=== PATIENT | male | born 1955 | race Hispanic/Latino ===

== ENCOUNTER 2019-07-18 11:59 | Outpatient (CLI) | payer MEDICARE, OTHER ==
[2019-07-18 13:00] LABS: Blood Urea Nitrogen 11 mg/dL (9-20)
--- NOTE | 2019-07-18 15:07 | Cat Scan Report ---
CT soft tissue neck with and without IV contrast. CLINICAL HISTORY: Neck swelling FINDINGS: No previous exams are available for comparison. There is a heterogeneous lobulated mass omayra tered along the left base of tongue measuring approximately 3.8 cm AP by 3.4 cm transverse by 2.8 cm sagittally in greatest dimensions. This finding is at the level of the epiglottis and vallecula there is no significant effacement. There is a lesion extends more anteriorly along the left floor of mout h and would be most consistent with squamous cell carcinoma. There is associated necrotic adenopathy within the left at level II region with the largest measuring 2.9 cm transverse by 3.9 cm longitudinally at. An adjacent node more inferiorly measures 1.9 cm fuentes sverse. The findings would be compatible with associated metastatic process at. There is a 1.0 cm rou nded a lymph node posterior to the right submandibular gland. Otherwise, the right-sided nodes are fa irly unremarkable. There is no enlargement of the epiglottis. There is some motion artifact at the level the larynx thou gh the structures appear fairly symmetric.. The thyroid gland is appropriate in size and contour. The re is moderate atherosclerotic calcification involving proximal left ICA. All CT scans at this locati on are performed using the CT dose reduction for ALARA by means of automated exposure control. IMPRESSION: There is an infiltrative mass centered along the left at base of tongue as detailed above most consis tent with neoplastic process. Furthermore, there is associated prominent level II necrotic adenopathy on the left. A 1.0 cm lymph node is seen within the right jugulodigastric region. Signer Name: Mani Fitzgerald MD Signed: 07/18/2019 3:03 PM Workstation Name: [id number]
== END 2019-07-18 12:00 | disposition home or self-care (01) ==
LOC: EDBD → CT 11:59
PROVIDERS: ATTEND Otolaryngology
DX: R22.1 Localized swelling, mass and lump, neck (principal)
CPT/HCPCS: 36415; 70492; 82565; 84520; Q9967

== ENCOUNTER 2019-08-23 08:52 | Day surgery (SDC) | payer MEDICARE ==
--- NOTE | 2019-08-23 11:59 | Short Stay Summary ---
Short Stay Documentation Date of service: 08/23/19 - History Principal diagnosis: left tongue mass and left neck lymhadenopathy - Allergies and Medications Current Medications: Allergies No Known Allergies Allergy (Verified 08/15/19 09:18) Home Medications Medication Instructions Recorded Confirmed Last Taken Type Aspirin EC [Halfprin EC] 81 mg PO DAILY 08/15/19 08/23/19 08/22/19 History 81 mg Canagliflozin (Nf) [Invokana (Nf)] 300 mg PO DAILY 08/15/19 08/23/19 08/22/19 History 300 mg Clopidogrel [Plavix] 75 mg PO DAILY 08/15/19 08/15/19 08/14/19 History 75 mg Fenofibrate Nanocrystallized 48 mg PO DAILY 08/15/19 08/23/19 08/23/19 History [Fenofibrate] 48 mg Glimepiride [Amaryl] 4 mg PO DAILY 08/15/19 08/23/19 08/22/19 History 4 mg Niacin [Niacin ER] 500 mg PO DAILY 08/15/19 08/15/19 08/14/19 History 500 mg Tolterodine [Detrol LA] 4 mg PO DAILY 08/15/19 08/23/19 08/22/19 History 4 mg carvediloL [Coreg] 12.5 mg PO BID 08/15/19 08/23/19 08/22/19 History 12.5mg lisinopriL [Zestril TAB] 40 mg PO QHS 08/15/19 08/23/19 08/22/19 History 40 mg - Physical exam General appearance: no acute distress HEENT: Other (palpable left neck lymphadenopathy) - Brief post op/procedure progress note Date of procedure: 08/23/19 Pre-op diagnosis: left neck LAD Post-op diagnosis: same Procedure: US guided biopsy Anesthesia: local Findings: 2.2cm left neck lymph node Surgeon: KARRI CAT Estimated blood loss: none Pathology: list (18G core x 3) Condition: stable - Hospital course Hospital course: uneventful - Disposition Condition at discharge: Good Disposition: DC-01 TO HOME OR SELFCARE Short Stay Discharge Plan Follow up with: AMANDA REDMOND MD [Primary Care Provider] - 7 Days
--- NOTE | 2019-08-23 12:05 | Ultrasound Report ---
ULTRASOUND CORE BIOPSY NECK HISTORY: Left tongue mass, left neck mass DESCRIPTION OF PROCEDURE: Informed consent was obtained. Sterile technique was utilized. 1% lidocaine for skin anesthesia. Using ultrasound guidance, a 17-gauge introducer needle was advanced to the dann ding edge of a 2.3 cm left neck lymph node. 3 separate 1.3 cm 18-gauge core biopsies were obtained fo r pathology which were placed in formalin and RPMI media. The patient tolerated the procedure without difficulty. IMPRESSION: Successful ultrasound-guided biopsy of a 2.3 cm left neck lymph node. Signer Name: Chiki Mixon Jr, MD Signed: 08/23/2019 12:01 PM Workstation Name: [id number]
[2019-08-23 12:07] VITALS: BP 145/77
== END 2019-08-23 12:10 | disposition home or self-care (01) ==
LOC: CATHLABREC 08:52
PROVIDERS: ATTEND Otolaryngology
DX: R22.1 Localized swelling, mass and lump, neck (principal); C77.9 Secondary and unspecified malignant neoplasm of lymph node, unspecified; I25.10 Atherosclerotic heart disease of native coronary artery without angina pectoris; I10 Essential (primary) hypertension; G47.30 Sleep apnea, unspecified; F17.210 Nicotine dependence, cigarettes, uncomplicated; Z79.899 Other long term (current) drug therapy; Z79.82 Long term (current) use of aspirin; Z95.1 Presence of aortocoronary bypass graft; Z90.49 Acquired absence of other specified parts of digestive tract; Z98.890 Other specified postprocedural states
CPT/HCPCS: 20206; 76942; 88184; 88185; 88305; 88341; 88342

== ENCOUNTER 2021-11-07 04:25 | Inpatient (IN) | payer MEDICARE ==
[2021-11-07] MEDS ORDERED: MORPHINE 4 MG/1 ML INJ IV ONE (04:42)
[2021-11-07] MEDS ORDERED: SODIUM CHLORIDE 0.9% 1000 ML 1,000 ML IV ONE (04:42)
[2021-11-07] MEDS ORDERED: ONDANSETRON 4 MG/2 ML INJ IV ONE (04:42)
--- NOTE | 2021-11-07 04:44 | Emergency Department Report ---
ED Fall HPI - General Chief Complaint: Fall Stated Complaint: LEFT HIP PAIN Time Seen by Provider: 11/07/21 04:42 Source: patient, EMS Mode of arrival: Stretcher - History of Present Illness Initial Comments: 66-year-old male with a past medical history of head and neck cancer status post removal 2 years ago, currently in remission, history of CAD status post CABG 12 years ago, presents the ED with severe left hip pain after falling. The patient stated he had consumed a few drinks of alcohol, got inebriated, tripped and fell. Denies any other injury besides left hip. No LOC, left head is rotated internally and shortened. Was brought to ED via EMS. 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 Witnessed: yes, by family Place Fall Occurred: home Loss of Consciousness: none Prolonged Down Time?: no Symptoms Prior to Fall: none Location: pelvis (Left hip) Location - Extremities: Left: Thigh Severity: severe Severity scale (0 -10): 10 Quality: dull Context: alcohol use Associated Symptoms: denies - Related Data Home Medications Medication Instructions Recorded Confirmed Last Taken Aspirin EC [Halfprin EC] 81 mg PO DAILY 08/15/19 08/23/19 08/22/19 81 mg Canagliflozin (Nf) [Invokana (Nf)] 300 mg PO DAILY 08/15/19 08/23/19 08/22/19 300 mg Clopidogrel [Plavix] 75 mg PO DAILY 08/15/19 08/15/19 08/14/19 75 mg Fenofibrate Nanocrystallized 48 mg PO DAILY 08/15/19 08/23/19 08/23/19 [Fenofibrate] 48 mg Glimepiride [Amaryl] 4 mg PO DAILY 08/15/19 08/23/19 08/22/19 4 mg Niacin [Niacin ER] 500 mg PO DAILY 08/15/19 08/15/19 08/14/19 500 mg Tolterodine [Detrol LA] 4 mg PO DAILY 08/15/19 08/23/19 08/22/19 4 mg carvediloL [Coreg] 12.5 mg PO BID 08/15/19 08/23/19 08/22/19 12.5mg lisinopriL [Zestril TAB] 40 mg PO QHS 08/15/19 08/23/1908/22/19 40 mg Allergies Allergy/AdvReac Type Severity Reaction Status Date / Time No Known Allergies Allergy Verified 08/15/19 09:18 ED Review of Systems ROS: Stated complaint: LEFT HIP PAIN Other details as noted in HPI Constitutional: denies: chills, fever Eyes: denies: eye pain, eye discharge, vision change ENT: denies: ear pain, throat pain Respiratory: denies: cough, shortness of breath, wheezing Cardiovascular: denies: chest pain, palpitations Endocrine: no symptoms reported Gastrointestinal: denies: abdominal pain, nausea, diarrhea Genitourinary: denies: urgency, dysuria Musculoskeletal: arthralgia. denies: back pain, joint swelling Skin: denies: rash, lesions Neurological: denies: headache, weakness, paresthesias Psychiatric: denies: anxiety, depression Hematological/Lymphatic: denies: easy bleeding, easy bruising ED Past Medical Hx - Past Medical History Previous Medical History?: Yes Hx Hypertension: Yes Hx Heart Attack/AMI: No Hx Diabetes: Yes Hx HIV: No - Surgical History Past Surgical History?: No - Social History Smoking Status: Current Every Day Smoker Substance Use Type: Alcohol - Medications Home Medications: Home Medications Medication Instructions Recorded Confirmed Last Taken Type Aspirin EC [Halfprin EC] 81 mg PO DAILY 08/15/19 08/23/19 08/22/19 History 81 mg Canagliflozin (Nf) [Invokana (Nf)] 300 mg PO DAILY 08/15/19 08/23/19 08/22/19 History 300 mg Clopidogrel [Plavix] 75 mg PO DAILY 08/15/19 08/15/19 08/14/19 History 75 mg Fenofibrate Nanocrystallized 48 mg PO DAILY 08/15/19 08/23/19 08/23/19 History [Fenofibrate] 48 mg Glimepiride [Amaryl] 4 mg PO DAILY 08/15/19 08/23/19 08/22/19 History 4 mg Niacin [Niacin ER] 500 mg PO DAILY 08/15/19 08/15/19 08/14/19 History 500 mg Tolterodine [Detrol LA] 4 mg PO DAILY 08/15/19 08/23/19 08/22/19 History 4 mg carvediloL [Coreg] 12.5 mg PO BID 08/15/19 08/23/1919 History 12.5mg lisinopriL [Zestril TAB] 40 mg PO QHS 08/15/19 08/23/19 08/22/19 History 40 mg ED Physical Exam - General Limitations: No Limitations General appearance: alert, in no apparent distress - Head Head exam: Present: atraumatic, normocephalic - Eye Eye exam: Present: normal appearance - ENT ENT exam: Present: mucous membranes moist - Neck Neck exam: Present: normal inspection - Respiratory Respiratory exam: Present: normal lung sounds bilaterally. Absent: respiratory distress - Cardiovascular Cardiovascular Exam: Present: regular rate, normal rhythm. Absent: systolic murmur, diastolic murmur, rubs, gallop - GI/Abdominal GI/Abdominal exam: Present: soft, normal bowel sounds - Rectal Rectal exam: Present: deferred - Extremities Exam Extremities exam: Present: tenderness (Left hip tenderness, internally rotated, shortened) - Back Exam Back exam: Present: normal inspection - Neurological Exam Neurological exam: Present: alert, oriented X3 - Psychiatric Psychiatric exam: Present: normal affect, normal mood - Skin Skin exam: Present: warm, dry, intact, normal color. Absent: rash ED Course Vital Signs 11/07/21 11/07/21 11/07/21 04:28 05:29 05:32 Temperature 98.6 F 98.1 F Pulse Rate 78 85 Respiratory 18 14 13 Rate Blood Pressure 175/95 Blood Pressure 147/87 [Left] O2 Sat by Pulse 99 100 100 Oximetry - Reevaluation(s) Reevaluation #1: 11/07/21 05:52 Shortened left hip, consistent with fracture, will admit. ED Medical Decision Making - Lab Data Result diagrams: 11/07/21 04:46 11/07/21 04:46 - Radiology Data Radiology results: report reviewed interpreted by me: Left hip intertrochanteric fracture - Medical Decision Making Patient with left hip fracture, intertrochanteric, discuss it with orthopedic, rec hospitalist admit. - Differential Diagnosis Left hip fracture, contusion, sprain, strain. Critical care attestation.: If time is entered above; I have spent that time in minutes in the direct care of this critically ill patient, excluding procedure time. ED Disposition Clinical Impression: Closed left hip fracture Qualifiers: Encounter type: initial encounter Qualified Code(s): S72.002A - Fracture of unspecified part of neck of left femur, initial encounter for closed fracture Disposition: 09 ADMITTED INPATIENT Is pt being admited?: Yes Does the pt Need Aspirin: No Condition: Stable
[2021-11-07 05:23] LABS: Alanine Aminotransferase 10 units/L (7-56); Albumin 4.2 g/dL (3.9-5); BUN/Creatinine Ratio 10; Blood Urea Nitrogen 11 mg/dL (9-20); Calcium 8.6 mg/dL (8.4-10.2); Hemolysis Index 18
[2021-11-07 05:25] LABS: Basophils # (Auto) 0.1 K/mm3 (0.0-0.1); Basophils % (Auto) 0.7 % (0.0-1.8); Eosinophils # (Auto) 0.1 K/mm3 (0.0-0.4); Eosinophils % (Auto) 1.2 % (0.0-4.3); Hematocrit 50.1 % (35.5-45.6); Hemoglobin 16.8 gm/dl (11.8-15.2); Lymphocytes # (Auto) 0.9 K/mm3 (1.2-5.4); Lymphocytes % (Auto) 10.9 % (13.4-35.0); Mean Corpuscular HGB Conc 34 % (32-34); Mean Corpuscular Volume 101 fl (84-94); Monocytes # (Auto) 0.4 K/mm3 (0.0-0.8); Monocytes % (Auto) 5.3 % (0.0-7.3); Platelet Count 155 K/mm3 (140-440); Red Blood Count 4.94 M/mm3 (3.65-5.03); Red Cell Distribution Width 14.5 % (13.2-15.2)
[2021-11-07] MEDS ORDERED: DEXTROSE 50% IN WATER (25GM) 50 ML SYRINGE IV PRN (05:39)
[2021-11-07] MEDS ORDERED: ALBUTEROL 2.5 MG/3 ML NEBU IH PRN (05:39)
[2021-11-07] MEDS ORDERED: ACETAMINOPHEN 325 MG TAB PO PRN (05:39)
[2021-11-07] MEDS ORDERED: HYDROmorphone 1 MG/1 ML INJ IV PRN (05:39)
[2021-11-07] MEDS ORDERED: ONDANSETRON 4 MG/2 ML INJ IV PRN (05:39)
--- NOTE | 2021-11-07 05:41 | XRay Report ---
RIGHT HIP 2 VIEWS INDICATION / CLINICAL INFORMATION: left hip pain COMPARISON: None available. FINDINGS: BONES / JOINT(S): Comminuted intertrochanteric fracture. Avulsion of the lesser trochanter. SOFT TISSUES: No significant abnormality. ADDITIONAL FINDINGS: None. Signer Name: Jovanny Carye MD Signed: 11/07/2021 5:36 AM Workstation Name: [id number]
[2021-11-07] MEDS ORDERED: SODIUM CHLORIDE 0.9% 1000 ML 1,000 ML IV SCH (05:45)
--- NOTE | 2021-11-07 05:48 | History and Physical Report ---
History of Present Illness Date of examination: 11/07/21 Date of admission: 11/07/21 Chief complaint: Fall Left hip pain History of present illness: 66 years old male with history of alcohol abuse and hypertension, CAD history of CABG 12 years ago, head neck cancer status post removal 2 years ago was brought to the hospital because of left hip pain after falling. Patient was drinking and tripped and fall since then patient complained of left hip pain. In the em ergency room patient is found to have alcohol intoxicated also patient has left femoral neck fracture subsequently Case discussed with orthopedic DrNishant Will see the patient in consultation in the morning. Past History Past Medical History: hypertension, other (Alcohol abuse) Past Surgical History: No surgical history Social history: alcohol abuse, other (Every day smoker) Family history: no significant family history Medications and Allergies Allergies Allergy/AdvReac Type Severity Reaction Status Date / Time No Known Allergies Allergy Verified 08/15/19 09:18 Home Medications Medication Instructions Recorded Confirmed Last Taken Type Aspirin EC [Halfprin EC] 81 mg PO DAILY 08/15/19 08/23/19 08/22/19 History 81 mg Canagliflozin (Nf) [Invokana (Nf)] 300 mg PO DAILY 08/15/19 08/23/19 08/22/19 History 300 mg Clopidogrel [Plavix] 75 mg PO DAILY 08/15/19 08/15/19 08/14/19 History 75 mg Fenofibrate Nanocrystallized 48 mg PO DAILY 08/15/19 08/23/19 08/23/19 History [Fenofibrate] 48 mg Glimepiride [Amaryl] 4 mg PO DAILY 08/15/19 08/23/19 08/22/19 History 4 mg Niacin [Niacin ER] 500 mg PO DAILY 08/15/19 08/15/19 08/14/19 History 500 mg Tolterodine [Detrol LA] 4 mg PO DAILY 08/15/19 08/23/19 08/22/19 History 4 mg carvediloL [Coreg] 12.5 mg PO BID 08/15/19 08/23/19 08/22/19 History 12.5mg lisinopriL [Zestril TAB] 40 mg PO QHS 08/15/19 08/23/19 08/22/19 History 40 mg Review of Systems Constitutional: other (Fall, left hip pain) Exam - Constitutional Vitals: Temp Pulse Resp BP Pulse Ox 98.1 F 85 13 147/87 100 11/07/21 05:32 11/07/21 05:32 11/07/21 05:32 11/07/21 05:32 11/07/21 05:32 General appearance: Present: no acute distress, well-nourished - EENT Eyes: Present: PERRL ENT: hearing intact, clear oral mucosa - Neck Neck: Present: supple, normal ROM - Respiratory Respiratory effort: normal Respiratory: bilateral: CTA - Cardiovascular Heart Sounds: Present: S1 & S2. Absent: rub, click - Extremities Extremities: pulses symmetrical, No edema Extremity abnormal: other (Left hip pain) Peripheral Pulses: within normal limits - Abdominal General gastrointestinal: Present: soft, non-tender, non-distended, normal bowel sounds Male genitourinary: Present: normal - Integumentary Integumentary: Present: clear, warm, dry - Musculoskeletal Musculoskeletal: gait normal, strength equal bilaterally - Psychiatric Psychiatric: appropriate mood/affect, intact judgment & insight - Neurologic Neurologic: CNII-XII intact, moves all extremities Results - Labs CBC & Chem 7: 11/07/21 04:46 11/07/21 04:46 Labs: Laboratory Last Values WBC 8.1 K/mm3 (4.5-11.0) 11/07/21 04:46 RBC 4.94 M/mm3 (3.65-5.03) 11/07/21 04:46 Hgb 16.8 gm/dl (11.8-15.2) H 11/07/21 04:46 Hct 50.1 % (35.5-45.6) H 11/07/21 04:46 MCV 101 fl (84-94) H 11/07/21 04:46 MCH 34 pg (28-32) H 11/07/21 04:46 MCHC 34 % (32-34) 11/07/21 04:46 RDW 14.5 % (13.2-15.2) 11/07/21 04:46 Plt Count 155 K/mm3 (140-440) 11/07/21 04:46 Lymph % (Auto) 10.9 % (13.4-35.0) L 11/07/21 04:46 Harlan % (Auto) 5.3 % (0.0-7.3) 11/07/21 04:46 Eos % (Auto) 1.2 % (0.0-4.3) 11/07/21 04:46 Baso % (Auto) 0.7 % (0.0-1.8) 11/07/21 04:46 Lymph # (Auto) 0.9 K/mm3 (1.2-5.4) L 11/07/21 04:46 Harlan # (Auto) 0.4 K/mm3 (0.0-0.8) 11/07/21 04:46 Eos # (Auto) 0.1 K/mm3 (0.0-0.4) 11/07/21 04:46 Baso # (Auto) 0.1 K/mm3 (0.0-0.1) 11/07/21 04:46 Seg Neutrophils % 81.9 % (40.0-70.0) H 11/07/21 04:46 Seg Neutrophils # 6.6 K/mm3 (1.8-7.7) 11/07/21 04:46 Sodium 140 mmol/L (137-145) 11/07/21 04:46 Potassium 4.2 mmol/L (3.6-5.0) 11/07/21 04:46 Chloride 101.3 mmol/L (98-107) 11/07/21 04:46 Carbon Dioxide 26 mmol/L (22-30) 11/07/21 04:46 Anion Gap 17 mmol/L 11/07/21 04:46 BUN 11 mg/dL (9-20) 11/07/21 04:46 Creatinine 1.1 mg/dL (0.8-1.3) 11/07/21 04:46 Estimated GFR > 60 ml/min 11/07/21 04:46 BUN/Creatinine Ratio 10 % 11/07/21 04:46 Glucose 116 mg/dL (75-100) H 11/07/21 04:46 Calcium 8.6 mg/dL (8.4-10.2) 11/07/21 04:46 Total Bilirubin 0.20 mg/dL (0.1-1.2) 11/07/21 04:46 AST 15 units/L (5-40) 11/07/21 04:46 ALT 10 units/L (7-56) 11/07/21 04:46 Alkaline Phosphatase 68 units/L (35-129) 11/07/21 04:46 Total Protein 7.1 g/dL (6.3-8.2) 11/07/21 04:46 Albumin 4.2 g/dL (3.9-5) 11/07/21 04:46 Albumin/Globulin Ratio 1.4 % 11/07/21 04:46 Plasma/Serum Alcohol 0.17 % (0-0.07) H 11/07/21 04:46 Assessment and Plan VTE prophylaxis?: Mechanical Plan of care discussed with patient/family: Yes - Patient Problems (1) Fracture of femoral neck, left Current Visit: No Status: Acute Plan to address problem: Admit the patient to the medical floor. NPO. IV fluid normal saline at the rate of 100 cc/h. Recheck CBC BMP in the morning (2) Hypertension Current Visit: No Status: Acute Plan to address problem: Lisinopril 40 mg p.o. nightly. Coreg 12.5 mg p.o. twice daily (3) Alcohol abuse Current Visit: No Status: Acute Plan to address problem: Patient counseled regarding quitting drinking. We put the patient on CIWA protocol and banana bag (4) Tobacco abuse Current Visit: No Status: Acute Plan to address problem: Counseled regarding quit smoking. We put the patient on nicotine patch (5) CAD (coronary artery disease) Current Visit: No Status: Acute Plan to address problem: Patient is on aspirin 81 mg p.o. daily. Plavix 75 mg p.o. daily, fenofibrate 48 mg p.o. daily. Coreg 12.5 mg p.o. twice daily (6) DVT prophylaxis Current Visit: No Status: Acute Plan to address problem: SCD for DVT prophylaxis for possible surgery. Pepcid 20 mg p.o. twice daily for GI prophylaxis. Patient is a full code
[2021-11-07] MEDS ORDERED: THIAMINE 100 MG, FOLIC ACID 1 MG, MULTIPLE VITAMIN INJ, ADULT 10 ML in SODIUM CHLORIDE ... IV ONE (05:49)
[2021-11-07] MEDS ORDERED: hydrALAZINE 20 MG/1 ML INJ IV PRN (05:49)
--- NOTE | 2021-11-07 05:49 | XRay Report ---
PELVIS ONE VIEW INDICATION / CLINICAL INFORMATION: pain s/p fall COMPARISON: None available. FINDINGS: BONES / JOINT(S): Intertrochanteric fracture left hip with avulsion of the lesser trochanter. No anatoly tional fracture identified. SOFT TISSUES: No significant abnormality. ADDITIONAL FINDINGS: None. Signer Name: Jovanny Carey MD Signed: 11/07/2021 5:44 AM Workstation Name: [id number]
[2021-11-07] MEDS ORDERED: NICOTINE 7 MG/24 HR PATCH TD ONE (05:50)
[2021-11-07 06:07] LABS: INR 0.87 (0.87-1.13)
[2021-11-07 06:08] LABS: Partial Thromboplastin Time 28.4 Sec. (24.2-36.6)
[2021-11-07] MEDS: INSULIN LISPRO 100 UNIT/ML SUB-Q SCH ×3 (06:27→18:00)
[2021-11-07 06:50] LABS: Bilirubin,Urine NEG (Negative); Blood,Urine SM (Negative); Color,Urine Yellow (Yellow); Protein,Urine <15 mg/dL mg/dL (Negative); Urobilinogen,Urine < 2.0 mg/dL (<2.0)
[2021-11-07 06:57] LABS: Amphetamine Screen,Urine Negative; Benzodiazepines Screen,Urine Negative; Cannabinoid Screen,Urine Negative; Cocaine Screen,Urine Negative; Methadone Screen,Urine Negative; Opiate Screen,Urine Negative
[2021-11-07 07:13] LABS: RBC,Urine < 1.0 /HPF (0.0-6.0); WBC,Urine < 1.0 /HPF (0.0-6.0)
--- NOTE | 2021-11-07 08:10 | Event Note ---
Date: 11/07/21 Patient was evaluated this morning and found to be hemodynamically stable. The patient experienced a closed left femur fracture, and he is currently pending evaluation by orthopedic surgery. Analgesic has been adjusted, and patient has been placed on a regular diet until surgical date is determined.
[2021-11-07] MEDS ORDERED: HYDROmorphone 2 MG/1 ML INJ IV ONE (08:26)
[2021-11-07] MEDS: IBUPROFEN 800 MG TAB PO SCH ×3 (08:43→21:50)
[2021-11-07] MEDS ORDERED: IBUPROFEN 600 MG TAB PO SCH (09:00)
[2021-11-07] MEDS ORDERED: TOLTERODINE 2 MG PO SCH (10:00)
[2021-11-07] MEDS: IPRATROPIUM/ALBUTEROL SULFATE 3 ML AMPUL.NEB IH SCH ×2 (10:36→14:23)
[2021-11-07] MEDS: FAMOTIDINE 20 MG TAB PO SCH ×2 (10:45→21:47)
[2021-11-07] MEDS: carvediloL 12.5 MG TAB PO SCH ×2 (10:45→21:48)
[2021-11-07] MEDS: MORPHINE 2 MG/1 ML INJ IV PRN ×3 (11:27→23:46)
[2021-11-07] MEDS: OXYBUTYNIN 5 MG TAB PO SCH ×3 (11:38→21:49)
[2021-11-07] MEDS: NIACIN ER 500 MG TAB PO SCH (11:38)
[2021-11-07] MEDS: FENOFIBRATE 48 MG TAB PO SCH (11:39)
--- NOTE | 2021-11-07 11:40 | Consultation ---
History of Present Illness - [facility] Consult date: 11/07/21 History of present illness: ORTHOPAEDIC CONSULT Assessment: 1. Intertrochanteric fracture, left hip 2. History of atrial fibrillation/recent onset Recommendation: 1. IM nail stabilization, left hip (TriGen InterTAN) 2. Physical therapy for partial weightbearingand, strengthening LEFT lower extremity as per hip fracture recovery guidelines;; 3. Appropriate pain management; 4. Possible discharge home on Nov 09 or ; will require outpatient/home health school therapy on weekly basis for the next 6 weeks following surgery; and HOME HEALTH P.T. ( first 3 weeks); Discussion: This is a 66-year-old male who had the misfortune of slipping and falling yesterday at home sustaining a left hip injury. He was unable to bear weight or get up off the floor and therefore called for help and was seen at the emergency room last evening where x-rays revealed an intertrochanteric fracture of the left hip. He was admitted by the hospitalist and orthopedics was consulted. He has a moderate cardiac history with recent onset atrial fibrillation? This will need to be cleared for anesthesia. Would like to proceed with surgical stabilization tomorrow but if unable must try to shoot for doing the surgery within 48 hours. he is examined at the bedside and is in no acute distress. The left lower extremity is shortened and externally rotated. He has typical pain and is unable to do a straight leg raise without assistance because of pain. There are no apparent other injuries. He has no skin lesions ; the tenderness is in the groin and over the greater trochanter. X-rays: Moderately displaced intertrochanteric fracture with lesser trochanter involvement but otherwise no comminution. There is shortening/collapse. Past History Past Medical History: hypertension, other (Alcohol abuse) Past Surgical History: No surgical history Social history: alcohol abuse, other (Every day smoker) Family history: no significant family history Medications and Allergies Allergies Allergy/AdvReac Type Severity Reaction Status Date / Time No Known Allergies Allergy Verified 08/15/19 09:18 Home Medications Medication Instructions Recorded Confirmed Last Taken Type Aspirin EC [Halfprin EC] 81 mg PO DAILY 08/15/19 08/23/19 08/22/19 History 81 mg Canagliflozin (Nf) [Invokana (Nf)] 300 mg PO DAILY 08/15/19 08/23/19 08/22/19 History 300 mg Clopidogrel [Plavix] 75 mg PO DAILY 08/15/19 08/15/19 08/14/19 History 75 mg Fenofibrate Nanocrystallized 48 mg PO DAILY 08/15/19 08/23/19 08/23/19 History [Fenofibrate] 48 mg Glimepiride [Amaryl] 4 mg PO DAILY 08/15/19 08/23/19 08/22/19 History 4 mg Niacin [Niacin ER] 500 mg PO DAILY 08/15/19 08/15/19 08/14/19 History 500 mg Tolterodine [Detrol LA] 4 mg PO DAILY 08/15/19 08/23/19 08/22/19 History 4 mg carvediloL [Coreg] 12.5 mg PO BID 08/15/19 08/23/19 08/22/19 History 12.5mg lisinopriL [Zestril TAB] 40 mg PO QHS 08/15/19 08/23/19 08/22/19 History 40 mg Active Meds: Active Medications Acetaminophen (Acetaminophen 325 Mg Tab) 650 mg PO Q4H PRN PRN Reason: Fever >101 Albuterol (Albuterol 2.5 Mg/3 Ml Nebu) 2.5 mg IH Q3HRT PRN PRN Reason: Shortness Of Breath Albuterol/Ipratropium (Ipratropium/Albuterol Sulfate 3 Ml Ampul.Neb) 1 ampul IH Q6HRT [facility] Last Admin: 11/07/21 10:36 Dose: Not Given Carvedilol (Carvedilol 12.5 Mg Tab) 12.5 mg PO BID [facility] Dextrose (Dextrose 10% *Hypoglycemia) 0 ml IV PRN PRN PRN Reason: Hypoglycemia Famotidine (Famotidine 20 Mg Tab) 20 mg PO BID [facility] Fenofibrate (Fenofibrate 48 Mg Tab) 48 mg PO DAILY [facility] Hydralazine HCl (Hydralazine 20 Mg/1 Ml Inj) 10 mg IV Q6H PRN PRN Reason: Blood Pressure Hydromorphone HCl (Hydromorphone 1 Mg/1 Ml Inj) 1 mg IV Q3H PRN PRN Reason: Pain , Severe (7-10) Sodium Chloride (Nacl 0.9% 1000 Ml) 1,000 mls @ 100 mls/hr IV DIRECT [facility] Ibuprofen (Ibuprofen 800 Mg Tab) 800 mg PO Q6H [facility] Last Admin: 11/07/21 08:43 Dose: 800 mg Insulin Human Lispro (Insulin Lispro 100 Unit/Ml) 0 unit SUB-Q Q6HR [facility]; Protocol Last Admin: 11/07/21 06:27 Dose: Not Given Lisinopril (Lisinopril 40 Mg Tab) 40 mg PO QHS [facility] Lorazepam (Lorazepam 2 Mg/Ml Vial) 2 mg IV Q1H PRN PRN Reason: CIWA-Ar 8-15 Morphine Sulfate (Morphine 2 Mg/1 Ml Inj) 2 mg IV Q4H PRN PRN Reason: Pain, Moderate (4-6) Niacin (Niacin Er 500 Mg Tab) 500 mg PO DAILY [facility] Ondansetron HCl (Ondansetron 4 Mg/2 Ml Inj) 4 mg IV Q8H PRN PRN Reason: Nausea And Vomiting Oxybutynin Chloride (Oxybutynin 5 Mg Tab) 5 mg PO TID [facility] Sodium Chloride (Sodium Chloride 0.9% 10 Ml Flush Syringe) 10 ml IV BID JANICE Sodium Chloride (Sodium Chloride 0.9% 10 Ml Flush Syringe) 10 ml IV PRN PRN PRN Reason: LINE FLUSH
[2021-11-07] MEDS: HYDROmorphone 1 MG/1 ML INJ IV PRN (18:48)
[2021-11-07] MEDS: LISINOPRIL 40 MG TAB PO SCH (21:50)
[2021-11-08] MEDS: IPRATROPIUM/ALBUTEROL SULFATE 3 ML AMPUL.NEB IH SCH (01:51)
[2021-11-08] MEDS: IBUPROFEN 800 MG TAB PO SCH ×4 (04:10→20:44)
[2021-11-08] MEDS: INSULIN LISPRO 100 UNIT/ML SUB-Q SCH ×4 (05:34→17:36)
[2021-11-08] MEDS: MORPHINE 2 MG/1 ML INJ IV PRN (06:02)
[2021-11-08] MEDS: DEXTROSE 10% *Hypoglycemia IV PRN (06:04)
[2021-11-08 06:09] LABS: Basophils % (Auto) 0.5 % (0.0-1.8); Eosinophils # (Auto) 0.1 K/mm3 (0.0-0.4); Eosinophils % (Auto) 1.3 % (0.0-4.3); Hematocrit 45.7 % (35.5-45.6); Hemoglobin 15.1 gm/dl (11.8-15.2); Lymphocytes # (Auto) 0.9 K/mm3 (1.2-5.4); Lymphocytes % (Auto) 18.4 % (13.4-35.0); Mean Corpuscular HGB Conc 33 % (32-34); Mean Corpuscular Volume 102 fl (84-94); Monocytes # (Auto) 0.5 K/mm3 (0.0-0.8); Monocytes % (Auto) 11.4 % (0.0-7.3); Platelet Count 124 K/mm3 (140-440); Red Blood Count 4.47 M/mm3 (3.65-5.03); Red Cell Distribution Width 14.6 % (13.2-15.2)
[2021-11-08 06:25] LABS: BUN/Creatinine Ratio 14; Blood Urea Nitrogen 14 mg/dL (9-20); Calcium 8.3 mg/dL (8.4-10.2); Hemolysis Index 7; INR 0.96 (0.87-1.13)
[2021-11-08] MEDS: OXYBUTYNIN 5 MG TAB PO SCH ×3 (08:14→20:39)
--- NOTE | 2021-11-08 09:45 | Progress Note ---
Assessment and Plan Assessment and plan: #Closed left intertrochanteric fracture Orthopedic surgery consulted; appreciate recs. Surgical repair should occur within 24-48 hours Imaging revealing fracture on admission Continue analgesics as needed Physical therapy consulted for evaluation after surgical repair; pending recs Continue to monitor #Alcohol dependence - Counseled patient on the importance of ETOH cessation. Assess patient's current ETOH consumption. Assisted with trying to arrange resources for patient to adequately work towards ETOH cessation. Patient expresses understanding. -Time: +10 mins #Advanced care planning -Disease education conducted, care plan discussed, diagnoses discussed, prognosis discussed, and patient acknowledges understanding with care plan -Time: +30 min #Discharge planning - Patient is pending surgical repair of intertrochanteric fracture and PT evaluation - Case management has been made aware. - Discharge is tentatively 48-72 hours Disposition Plan: Continue medical management Total Time Spent with Patient (Minutes): 30 minutes History Interval history: No acute events overnight. Hospitalist Physical - Constitutional Vitals: Temp Pulse Resp BP Pulse Ox 97.4 F L 56 L 18 133/74 97 11/08/21 08:23 11/08/21 08:23 11/08/21 08:23 11/08/21 08:23 11/08/21 08:23 General appearance: Present: mild distress, well-nourished - EENT Eyes: Present: PERRL, EOM intact ENT: hearing intact, clear oral mucosa, dentition normal - Neck Neck: Present: supple, normal ROM - Respiratory Respiratory effort: normal Respiratory: bilateral: CTA - Cardiovascular Rhythm: regular Heart Sounds: Present: S1 & S2 - Extremities Extremities: no ischemia, pulses intact, pulses symmetrical, normal temperature, normal color, abnormal (Shortened and internally rotated left lower extremity with significant tenderness with movement) Peripheral Pulses: within normal limits - Abdominal General gastrointestinal: soft, non-tender, non-distended, normal bowel sounds - Integumentary Integumentary: Present: clear, warm, dry - Psychiatric Psychiatric: appropriate mood/affect, intact judgment & insight, memory intact, cooperative - Neurologic Neurologic: CNII-XII intact - Allied Health Allied health notes reviewed: nursing Results - Labs CBC & Chem 7: 11/08/21 04:58 11/08/21 04:58 Labs: Laboratory Last Values WBC 4.8 K/mm3 (4.5-11.0) 11/08/21 04:58 RBC 4.47 M/mm3 (3.65-5.03) 11/08/21 04:58 Hgb 15.1 gm/dl (11.8-15.2) 11/08/21 04:58 Hct 45.7 % (35.5-45.6) H 11/08/21 04:58 MCV 102 fl (84-94) H 11/08/21 04:58 MCH 34 pg (28-32) H 11/08/21 04:58 MCHC 33 % (32-34) 11/08/21 04:58 RDW 14.6 % (13.2-15.2) 11/08/21 04:58 Plt Count 124 K/mm3 (140-440) L 11/08/21 04:58 Lymph % (Auto) 18.4 % (13.4-35.0) 11/08/21 04:58 [place] % (Auto) 11.4 % (0.0-7.3) H 11/08/21 04:58 Eos % (Auto) 1.3 % (0.0-4.3) 11/08/21 04:58 Baso % (Auto) 0.5 % (0.0-1.8) 11/08/21 04:58 Lymph # (Auto) 0.9 K/mm3 (1.2-5.4) L 11/08/21 04:58 [place] # (Auto) 0.5 K/mm3 (0.0-0.8) 11/08/21 04:58 Eos # (Auto) 0.1 K/mm3 (0.0-0.4) 11/08/21 04:58 Baso # (Auto) 0.0 K/mm3 (0.0-0.1) 11/08/21 04:58 Seg Neutrophils % 68.4 % (40.0-70.0) 11/08/21 04:58 Seg Neutrophils # 3.3 K/mm3 (1.8-7.7) 11/08/21 04:58 PT 13.8 Sec. (12.2-14.9) 11/08/21 04:58 INR 0.96 (0.87-1.13) 11/08/21 04:58 APTT 28.4 Sec. (24.2-36.6) 11/07/21 04:46 Sodium 138 mmol/L (137-145) 11/08/21 04:58 Potassium 3.7 mmol/L (3.6-5.0) 11/08/21 04:58 Chloride 102.1 mmol/L (98-107) 11/08/21 04:58 Carbon Dioxide 26 mmol/L (22-30) 11/08/21 04:58 Anion Gap 14 mmol/L 11/08/21 04:58 BUN 14 mg/dL (9-20) 11/08/21 04:58 Creatinine 1.0 mg/dL (0.8-1.3) 11/08/21 04:58 Estimated GFR > 60 ml/min 11/08/21 04:58 BUN/Creatinine Ratio 14 % 11/08/21 04:58 Glucose 82 mg/dL (75-100) 11/08/21 04:58 POC Glucose 75 mg/dL (70-105) 11/08/21 07:40 Calcium 8.3 mg/dL (8.4-10.2) L 11/08/21 04:58 Total Bilirubin 0.20 mg/dL (0.1-1.2) 11/07/21 04:46 AST 15 units/L (5-40) 11/07/21 04:46 ALT 10 units/L (7-56) 11/07/21 04:46 Alkaline Phosphatase 68 units/L (35-129) 11/07/21 04:46 Total Protein 7.1 g/dL (6.3-8.2) 11/07/21 04:46 Albumin 4.2 g/dL (3.9-5) 11/07/21 04:46 Albumin/Globulin Ratio 1.4 % 11/07/21 04:46 Urine Color Yellow (Yellow) 11/07/21 06:24 Urine Turbidity Clear (Clear) 11/07/21 06:24 Urine pH 6.0 (5.0-7.0) 11/07/21 06:24 Ur Specific [place] 1.006 (1.003-1.030) 11/07/21 06:24 Urine Protein <15 mg/dl mg/dL (Negative) 11/07/21 06:24 Urine Glucose (UA) Neg mg/dL (Negative) 11/07/21 06:24 Urine Ketones Neg mg/dL (Negative) 11/07/21 06:24 Urine Blood Sm (Negative) 11/07/21 06:24 Urine Nitrite Neg (Negative) 11/07/21 06:24 Urine Bilirubin Neg (Negative) 11/07/21 06:24 Urine Urobilinogen < 2.0 mg/dL (<2.0) 11/07/21 06:24 Ur Leukocyte Esterase Neg (Negative) 11/07/21 06:24 Urine WBC (Auto) < 1.0 /HPF (0.0-6.0) 11/07/21 06:24 Urine RBC (Auto) < 1.0 /HPF (0.0-6.0) 11/07/21 06:24 Urine Opiates Screen Negative 11/07/21 06:24 Urine Methadone Screen Negative 11/07/21 06:24 Ur Barbiturates Screen Negative 11/07/21 06:24 Ur Phencyclidine Scrn Negative 11/07/21 06:24 Ur Amphetamines Screen Negative 11/07/21 06:24 U Benzodiazepines Scrn Negative 11/07/21 06:24 Urine Cocaine Screen Negative 11/07/21 06:24 U Marijuana (THC) Screen Negative 11/07/21 06:24 Drugs of Abuse Note Disclamer 11/07/21 06:24 Plasma/Serum Alcohol 0.17 % (0-0.07) H 11/07/21 04:46 Blood Type O POSITIVE 11/07/21 05:35 Antibody Screen Negative 11/07/21 05:35 North/IV: Voiding Method Urinal Active Medications - Current Medications Current Medications: Generic Name Dose Route Start Last Admin Trade Name Freq PRN Reason Stop Dose Admin Acetaminophen 650 mg 11/07/21 05:39 Acetaminophen 325 Mg Tab PO Q4H PRN Fever >101 Albuterol 2.5 mg 11/07/21 05:39 Albuterol 2.5 Mg/3 Ml Nebu IH Q3HRT PRN Shortness Of Breath Carvedilol 12.5 mg 11/07/21 10:00 11/07/21 21:48 Carvedilol 12.5 Mg Tab PO 12.5 mg BID JANICE Administration Dextrose 0 ml 11/07/21 05:49 11/08/21 06:04 Dextrose 10% *Hypoglycemia IV 50 ml PRN PRN Administration Hypoglycemia Famotidine 20 mg 11/07/21 10:00 11/07/21 21:47 Famotidine 20 Mg Tab PO 20 mg BID JANICE Administration Fenofibrate 48 mg 11/07/21 10:00 11/07/21 11:39 Fenofibrate 48 Mg Tab PO 48 mg DAILY JANICE Administration Hydralazine HCl 10 mg 11/07/21 05:49 Hydralazine 20 Mg/1 Ml Inj IV Q6H PRN Blood Pressure Hydromorphone HCl 1 mg 11/07/21 08:08 11/07/21 18:48 Hydromorphone 1 Mg/1 Ml Inj IV 1 mg Q3H PRN Administration Pain , Severe (7-10) Sodium Chloride 1,000 mls @ 100 mls/hr 11/07/21 05:45 Nacl 0.9% 1000 Ml IV DIRECT JANICE Ibuprofen 800 mg 11/07/21 09:00 11/08/21 08:15 Ibuprofen 800 Mg Tab PO 800 mg Q6H JANICE Administration Insulin Human Lispro 0 unit 11/07/21 06:00 11/08/21 07:48 Insulin Lispro 100 Unit/Ml SUB-Q Not Given Q6HR [facility] Protocol Lisinopril 40 mg 11/07/21 22:00 11/07/21 21:50 Lisinopril 40 Mg Tab PO 40 mg QHS JANICE Administration Lorazepam 2 mg 11/07/21 05:49 Lorazepam 2 Mg/Ml Vial IV Q1H PRN CIWA-Ar 8-15 Morphine Sulfate 2 mg 11/07/21 05:39 11/08/21 06:02 Morphine 2 Mg/1 Ml Inj IV 2 mg Q4H PRN Administration Pain, Moderate (4-6) Niacin 500 mg 11/07/21 10:00 11/07/21 11:38 Niacin Er 500 Mg Tab PO 500 mg DAILY JANICE Administration Ondansetron HCl 4 mg 11/07/21 05:39 Ondansetron 4 Mg/2 Ml Inj IV Q8H PRN Nausea And Vomiting Oxybutynin Chloride 5 mg 11/07/21 08:00 11/08/21 08:14 Oxybutynin 5 Mg Tab PO 5 mg TID JANICE Administration Sodium Chloride 10 ml 11/07/21 10:00 11/07/21 23:47 Sodium Chloride 0.9% 10 Ml Flush Syringe IV 10 ml BID JANICE Administration Sodium Chloride 10 ml 11/07/21 05:39 Sodium Chloride 0.9% 10 Ml Flush Syringe IV PRN PRN LINE FLUSH
[2021-11-08] MEDS: carvediloL 12.5 MG TAB PO SCH ×2 (10:29→21:43)
[2021-11-08] MEDS: FAMOTIDINE 20 MG TAB PO SCH ×2 (10:30→21:42)
[2021-11-08] MEDS: NIACIN ER 500 MG TAB PO SCH (10:30)
[2021-11-08] MEDS: FENOFIBRATE 48 MG TAB PO SCH (10:31)
--- NOTE | 2021-11-08 10:52 | Electrocardiograph Report ---
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
[2021-11-08] MEDS: HYDROmorphone 1 MG/1 ML INJ IV PRN ×2 (14:09→20:48)
[2021-11-08] MEDS: LISINOPRIL 40 MG TAB PO SCH (21:42)
[2021-11-09] MEDS: HYDROmorphone 1 MG/1 ML INJ IV PRN ×4 (01:26→17:55)
[2021-11-09] MEDS: IBUPROFEN 800 MG TAB PO SCH ×3 (03:00→20:48)
[2021-11-09] MEDS: DEXTROSE 10% *Hypoglycemia IV PRN (05:50)
[2021-11-09] MEDS: INSULIN LISPRO 100 UNIT/ML SUB-Q SCH ×4 (05:50→18:23)
[2021-11-09 07:09] LABS: Basophils % (Auto) 0.5 % (0.0-1.8); Eosinophils # (Auto) 0.1 K/mm3 (0.0-0.4); Eosinophils % (Auto) 2.1 % (0.0-4.3); Hematocrit 43.7 % (35.5-45.6); Hemoglobin 14.3 gm/dl (11.8-15.2); Lymphocytes # (Auto) 0.5 K/mm3 (1.2-5.4); Lymphocytes % (Auto) 10.2 % (13.4-35.0); Mean Corpuscular HGB Conc 33 % (32-34); Mean Corpuscular Volume 102 fl (84-94); Monocytes # (Auto) 0.5 K/mm3 (0.0-0.8); Platelet Count 111 K/mm3 (140-440); Red Blood Count 4.28 M/mm3 (3.65-5.03); Red Cell Distribution Width 14.5 % (13.2-15.2)
[2021-11-09 07:29] LABS: BUN/Creatinine Ratio 13; Blood Urea Nitrogen 13 mg/dL (9-20); Hemolysis Index 24
--- NOTE | 2021-11-09 11:06 | Progress Note ---
Assessment and Plan Assessment and plan: #Closed left intertrochanteric fracture Orthopedic surgery consulted; appreciate recs. Surgical repair will occur in the OR today (11/09/2021). Imaging revealing fracture on admission Continue analgesics as needed Physical therapy consulted for evaluation after surgical repair; pending recs Starting Eliquis 2.5 mg every 12 hours x35 days (after surgical repair) in order to avoid DVT formation. Continue to monitor #Alcohol dependence - Counseled patient on the importance of ETOH cessation. Assess patient's current ETOH consumption. Assisted with trying to arrange resources for patient to adequately work towards ETOH cessation. Patient expresses understanding. -Time: +10 mins #Advanced care planning -Disease education conducted, care plan discussed, diagnoses discussed, prognosis discussed, and patient acknowledges understanding with care plan -Time: +30 min #Discharge planning - Patient is pending surgical repair of intertrochanteric fracture and PT evalua tion - Case management has been made aware. - Discharge is tentatively 48-72 hours Disposition Plan: Continue medical management Total Time Spent with Patient (Minutes): 30 minutes History Interval history: No acute events overnight. Hospitalist Physical - Constitutional Vitals: Temp Pulse Resp BP Pulse Ox 98.0 F 62 17 132/72 100 11/09/21 03:44 11/09/21 03:44 11/09/21 05:26 11/09/21 03:44 11/09/21 03:44 General appearance: Present: mild distress, well-nourished - EENT Eyes: Present: PERRL, EOM intact ENT: hearing intact, clear oral mucosa, dentition normal - Neck Neck: Present: supple, normal ROM - Respiratory Respiratory effort: normal Respiratory: bilateral: CTA - Cardiovascular Rhythm: regular Heart Sounds: Present: S1 & S2 - Extremities Extremities: no ischemia, pulses intact, pulses symmetrical, normal temperature, normal color, abnormal (Shortened and internally rotated left lower extremity at hip) Extremity abnormal: tenderness (Significant tenderness of the left hip prec ipitated by any movement) Peripheral Pulses: within normal limits - Abdominal General gastrointestinal: soft, non-tender, non-distended, normal bowel sounds - Integumentary Integumentary: Present: clear, warm, dry - Psychiatric Psychiatric: appropriate mood/affect, intact judgment & insight, memory intact, cooperative - Neurologic Neurologic: CNII-XII intact, moves all extremities - Allied Health Allied health notes reviewed: nursing Results - Labs CBC & Chem 7: 11/09/21 06:39 11/09/21 06:39 Labs: Laboratory Last Values WBC 4.9 K/mm3 (4.5-11.0) 11/09/21 06:39 RBC 4.28 M/mm3 (3.65-5.03) 11/09/21 06:39 Hgb 14.3 gm/dl (11.8-15.2) 11/09/21 06:39 Hct 43.7 % (35.5-45.6) 11/09/21 06:39 MCV 102 fl (84-94) H 11/09/21 06:39 MCH 34 pg (28-32) H 11/09/21 06:39 MCHC 33 % (32-34) 11/09/21 06:39 RDW 14.5 % (13.2-15.2) 11/09/21 06:39 Plt Count 111 K/mm3 (140-440) L 11/09/21 06:39 Lymph % (Auto) 10.2 % (13.4-35.0) L 11/09/21 06:39 [place] % (Auto) 11.0 % (0.0-7.3) H 11/09/21 06:39 Eos % (Auto) 2.1 % (0.0-4.3) 11/09/21 06:39 Baso % (Auto) 0.5 % (0.0-1.8) 11/09/21 06:39 Lymph # (Auto) 0.5 K/mm3 (1.2-5.4) L 11/09/21 06:39 [place] # (Auto) 0.5 K/mm3 (0.0-0.8) 11/09/21 06:39 Eos # (Auto) 0.1 K/mm3 (0.0-0.4) 11/09/21 06:39 Baso # (Auto) 0.0 K/mm3 (0.0-0.1) 11/09/21 06:39 Seg Neutrophils % 76.2 % (40.0-70.0) H 11/09/21 06:39 Seg Neutrophils # 3.7 K/mm3 (1.8-7.7) 11/09/21 06:39 PT 13.8 Sec. (12.2-14.9) 11/08/21 04:58 INR 0.96 (0.87-1.13) 11/08/21 04:58 APTT 28.4 Sec. (24.2-36.6) 11/07/21 04:46 Sodium 139 mmol/L (137-145) 11/09/21 06:39 Potassium 4.2 mmol/L (3.6-5.0) 11/09/21 06:39 Chloride 103.4 mmol/L (98-107) 11/09/21 06:39 Carbon Dioxide 27 mmol/L (22-30) 11/09/21 06:39 Anion Gap 13 mmol/L 11/09/21 06:39 BUN 13 mg/dL (9-20) 11/09/21 06:39 Creatinine 1.0 mg/dL (0.8-1.3) 11/09/21 06:39 Estimated GFR > 60 ml/min 11/09/21 06:39 BUN/Creatinine Ratio 13 % 11/09/21 06:39 Glucose 98 mg/dL (75-100) 11/09/21 06:39 POC Glucose 86 mg/dL (70-105) 11/09/21 06:44 Calcium 8.0 mg/dL (8.4-10.2) L 11/09/21 06:39 Total Bilirubin 0.20 mg/dL (0.1-1.2) 11/07/21 04:46 AST 15 units/L (5-40) 11/07/21 04:46 ALT 10 units/L (7-56) 11/07/21 04:46 Alkaline Phosphatase 68 units/L (35-129) 11/07/21 04:46 Total Protein 7.1 g/dL (6.3-8.2) 11/07/21 04:46 Albumin 4.2 g/dL (3.9-5) 11/07/21 04:46 Albumin/Globulin Ratio 1.4 % 11/07/21 04:46 Urine Color Yellow (Yellow) 11/07/21 06:24 Urine Turbidity Clear (Clear) 11/07/21 06:24 Urine pH 6.0 (5.0-7.0) 11/07/21 06:24 Ur Specific [place] 1.006 (1.003-1.030) 11/07/21 06:24 Urine Protein <15 mg/dl mg/dL (Negative) 11/07/21 06:24 Urine Glucose (UA) Neg mg/dL (Negative) 11/07/21 06:24 Urine Ketones Neg mg/dL (Negative) 11/07/21 06:24 Urine Blood Sm (Negative) 11/07/21 06:24 Urine Nitrite Neg (Negative) 11/07/21 06:24 Urine Bilirubin Neg (Negative) 11/07/21 06:24 Urine Urobilinogen < 2.0 mg/dL (<2.0) 11/07/21 06:24 Ur Leukocyte Esterase Neg (Negative) 11/07/21 06:24 Urine WBC (Auto) < 1.0 /HPF (0.0-6.0) 11/07/21 06:24 Urine RBC (Auto) < 1.0 /HPF (0.0-6.0) 11/07/21 06:24 Urine Opiates Screen Negative 11/07/21 06:24 Urine Methadone Screen Negative 11/07/21 06:24 Ur Barbiturates Screen Negative 11/07/21 06:24 Ur Phencyclidine Scrn Negative 11/07/21 06:24 Ur Amphetamines Screen Negative 11/07/21 06:24 U Benzodiazepines Scrn Negative 11/07/21 06:24 Urine Cocaine Screen Negative 11/07/21 06:24 U Marijuana (THC) Screen Negative 11/07/21 06:24 Drugs of Abuse Note Disclamer 11/07/21 06:24 Plasma/Serum Alcohol 0.17 % (0-0.07) H 11/07/21 04:46 Blood Type O POSITIVE 11/07/21 05:35 Antibody Screen Negative 11/07/21 05:35 North/IV: Voiding Method Urinal Active Medications - Current Medications Current Medications: Generic Name Dose Route Start Last Admin Trade Name Freq PRN Reason Stop Dose Admin Acetaminophen 650 mg 11/07/21 05:39 Acetaminophen 325 Mg Tab PO Q4H PRN Fever >101 Albuterol 2.5 mg 11/07/21 05:39 Albuterol 2.5 Mg/3 Ml Nebu IH Q3HRT PRN Shortness Of Breath Calcium Carbonate/Glycine 1,250 mg 11/10/21 10:00 Calcium Carbonate 1250 Mg Tab PO BID JANICE Carvedilol 12.5 mg 11/07/21 10:00 11/08/21 21:43 Carvedilol 12.5 Mg Tab PO Not Given BID [facility] Dextrose 0 ml 11/07/21 05:49 11/09/21 05:50 Dextrose 10% *Hypoglycemia IV 50 ml PRN PRN Administration Hypoglycemia Famotidine 20 mg 11/07/21 10:00 11/08/21 21:42 Famotidine 20 Mg Tab PO 20 mg BID [facility] Administration Fenofibrate 48 mg 11/07/21 10:00 11/08/21 10:31 Fenofibrate 48 Mg Tab PO 48 mg DAILY [facility] Administration Hydralazine HCl 10 mg 11/07/21 05:49 Hydralazine 20 Mg/1 Ml Inj IV Q6H PRN Blood Pressure Hydromorphone HCl 1 mg 11/07/21 08:08 11/09/21 09:51 Hydromorphone 1 Mg/1 Ml Inj IV 1 mg Q3H PRN Administration Pain , Severe (7-10) Ibuprofen 800 mg 11/07/21 09:00 11/09/21 03:00 Ibuprofen 800 Mg Tab PO Not Given Q6H [facility] Insulin Human Lispro 0 unit 11/07/21 06:00 11/09/21 05:50 Insulin Lispro 100 Unit/Ml SUB-Q Not Given Q6HR [facility] Protocol Lisinopril 40 mg 11/07/21 22:00 11/08/21 21:42 Lisinopril 40 Mg Tab PO 40 mg QHS [facility] Administration Lorazepam 2 mg 11/07/21 05:49 Lorazepam 2 Mg/Ml Vial IV Q1H PRN CIWA-Ar 8-15 Morphine Sulfate 2 mg 11/07/21 05:39 11/08/21 06:02 Morphine 2 Mg/1 Ml Inj IV 2 mg Q4H PRN Administration Pain, Moderate (4-6) Niacin 500 mg 11/07/21 10:00 11/08/21 10:30 Niacin Er 500 Mg Tab PO 500 mg DAILY [facility] Administration Ondansetron HCl 4 mg 11/07/21 05:39 Ondansetron 4 Mg/2 Ml Inj IV Q8H PRN Nausea And Vomiting Oxybutynin Chloride 5 mg 11/07/21 08:00 11/08/21 20:39 Oxybutynin 5 Mg Tab PO 5 mg TID [facility] Administration Sodium Chloride 10 ml 11/07/21 10:00 11/08/21 21:47 Sodium Chloride 0.9% 10 Ml Flush Syringe IV 10 ml BID JANICE Administration Sodium Chloride 10 ml 11/07/21 05:39 Sodium Chloride 0.9% 10 Ml Flush Syringe IV PRN PRN LINE FLUSH
[2021-11-09] MEDS ORDERED: LACTATED RINGERS 1,000 ML ONE (11:35)
[2021-11-09] MEDS: LACTATED RINGERS 1,000 ML IV SCH ×2 (11:40→20:42)
[2021-11-09] MEDS ORDERED: HYDROmorphone 1 MG/1 ML INJ IV PRN ×2 (11:59)
[2021-11-09] MEDS ORDERED: ONDANSETRON 4 MG/2 ML INJ IV PRN (11:59)
[2021-11-09] MEDS ORDERED: MIDAZOLAM 2 MG/2 ML INJ IV NR (12:00)
--- NOTE | 2021-11-09 12:00 | Anesthesia Day of Surgery ---
Anesthesia Day of Surgery - Day of Surgery Patient Examined: Yes Patient H&P Reviewed: Yes Patient is NPO: Yes
--- NOTE | 2021-11-09 12:04 | Anesthesia Consultation ---
Anesthesia Consult and Med Hx Date of service: 11/09/21 - Airway Anesthetic Teeth Evaluation: Chipped, Edentulous (Upper) ROM Head & Neck: Adequate Mental/Hyoid Distance: Adequate Mallampati Class: Class III Intubation Access Assessment: Difficult (Had XRT with hard neck tissue) - Pre-Operative Health Status ASA Pre-Surgery Classification: ASA3 Proposed Anesthetic Plan: Spinal (GA if needed) - Pulmonary Hx Smoking: Yes Hx Sleep Apnea: Yes - Cardiovascular System Hx Hypertension: Yes Hx Coronary Artery Disease: Yes (CABG 12 years ago) Hx Heart Attack/AMI: No Hx Cardia Arrhythmia: Yes (Occasional AFIB) - Central Nervous System Hx Psychiatric Problems: No - Gastrointestinal Hx Gastroesophageal Reflux Disease: No - Endocrine Hx Non-Insulin Dependent Diabetes: No - Hematic Hx Anemia: No - Other Systems Hx Alcohol Use: Yes (ETOH use; Fell while intoxicated) Hx Cancer: No - Additional Comments Anesthesia Medical History Comments: Plt 111. Pt reports plavix about a week ago and Eliquis on Tuesday. He's not very compliant with taking his meds.
[2021-11-09] MEDS ORDERED: ceFAZolin/Water 2 GM/20 ML 2 GM/20 ML SYRINGE IV ONE (13:44)
[2021-11-09] MEDS ORDERED: BUPIVACAINE/PF (0.5%) 5 MG/1 ML 10 ML VIAL INFILTRATI ONE (13:51)
[2021-11-09] MEDS ORDERED: BUPIVACAINE/PF (0.5%) 5 MG/1 ML 30 ML VIAL INFILTRATI ONE (13:52)
[2021-11-09] MEDS ORDERED: propofoL 200 MG/20 ML VIAL IV ONE ×2 (13:57→14:24)
[2021-11-09] MEDS ORDERED: KETAMINE/STERILE WATER 50 MG/ML SYRINGE ONE (13:58)
[2021-11-09] MEDS ORDERED: MIDAZOLAM 5 MG/5 ML INJ MDV IV ONE (14:23)
[2021-11-09] MEDS ORDERED: ONDANSETRON 4 MG/2 ML INJ ONE (14:23)
[2021-11-09] MEDS ORDERED: SODIUM CHLORIDE 0.9% 100 ML ONE (14:23)
[2021-11-09] MEDS ORDERED: ceFAZolin/STERILE WATER 2 GM/20 ML SYRINGE IV NR (15:00)
[2021-11-09] MEDS: OXYBUTYNIN 5 MG TAB PO SCH ×3 (15:43→20:42)
[2021-11-09] MEDS: FENOFIBRATE 48 MG TAB PO SCH (15:45)
[2021-11-09] MEDS: NIACIN ER 500 MG TAB PO SCH (15:45)
[2021-11-09] MEDS: carvediloL 12.5 MG TAB PO SCH ×2 (15:45→23:10)
[2021-11-09] MEDS: FAMOTIDINE 20 MG TAB PO SCH ×2 (15:45→23:25)
--- NOTE | 2021-11-09 15:58 | XRay Report ---
INTRAOPERATIVE FLUOROSCOPY: LEFT HIP ORIF INDICATION: POST OP LT HIP. TECHNIQUE: Intraoperative spot images were obtained during the procedure. FINDINGS: Intramedullary [place] with distal screw fixation and proximal head and neck component is seen across the intertrochanteric fracture. No unexpected intraoperative findings. Fluoroscopy Time: 53 seconds. Fluoroscopy Images: 1. Signer Name: Carrington Slater MD Signed: 11/09/2021 3:54 PM Workstation Name: [id number]
--- NOTE | 2021-11-09 16:36 | Operative Report ---
Operative Report Operative Report: OPERATIVE REPORT Preop diagnosis : 1. Intertrochanteric fracture, left hip Postop diagnosis: Intertrochanteric fracture, left hip Procedure: IM nail stabilization with TriGen InterTAN system Surgeon: Puma Jean MD loan officer assistant: none Anesthesia: General with ETT Details of operative technique: After being appropriately prepared and cleared for surgery the patient was brought to the operating room and the correct site was identified. General anesthesia was then administered utilizing an ETT. The patient was then placed in the supine position on the fracture table and C arm x-ray was utilized throughout the case. The unaffected extremity was placed in the well leg gill and was flexed up to accommodate the C arm. The LEFT foot was placed in the fracture boot and traction was applied. Under fluoroscopy the fracture was reduced to an anatomic position without difficulty by applying simple longitudinal traction. The patient was positioned appropriately and the left hip was prepped and draped in usual sterile fashion utilizing ChloraPrep solution. A timeout was then called by the circulating nurse and once again the correct site was identified. A small incision was made over the proximal portion of the hip over the piriformis fossa. The dissection was carried down through the fibrofatty layer to the gluteal fascia. With blunt dissection the tip of the trochanter was palpated and a guidewire was inserted from the medial edge down the shaft of the femur to the distal fragment. The position of the guidewire was checked in both AP and lateral planes. This was overreamed and then a 11.5 mm x 18 cm TriGen InterTAN nail was then inserted over the guidewire to the appropriate position. The external drill guide was then attached and a small second stab incision was made to accommodate the drill guide against the lateral shaft of the femur. A second guidewire was then placed up through this drill guide across the fracture site through the femoral neck and to within 2 cm of subchondral bone. After measuring and reaming the outer cortex , a lag screw was inserted (105 mm) up through the nail into the femoral neck to within 1 cm of subchondral bone. A 100 mm compression screw was then placed up adjacent to the lag screw and this allowed for compression at the fracture site. The distal portion of the nail was locked with a 5 mm cortical screw (37.5 mm in length) utilizing the same distal incision. The entire construct was then visualized with a single intraoperative x-ray. This revealed excellent IM fixation of the fracture. Wounds were then irrigated copiously with normal saline. Deep fascial layer was closed with a 0 Vicryl suture. The subcutaneous layers were closed with 2-0 Vicryl and the skin was reapproximated with bronson. Both incisions were then covered with xeroform dressings followed by a sterile compressive dressing and the patient was then awakened and moved from the fracture table to the hospital bed and taken to recovery room in good condition Estimated blood loss: Less than 10 cc Drains : None Complications: None
[2021-11-09 16:43] LABS: INR 0.99 (0.87-1.13)
[2021-11-09 16:44] LABS: Partial Thromboplastin Time 28.6 Sec. (24.2-36.6)
--- NOTE | 2021-11-09 18:33 | Post Anesthesia Evaluation ---
- Post Anesthesia Evaluation Patient Participated: Yes Airway Patent: Yes Stable Respiratory Function: Yes Nausea/Vomiting: No Temp > 96.8F: Yes Pain Manageable: Yes Adequeate Hydration: Yes Anesthesia Complications: No Block Receding Appropriately: Yes Patient on Ventilator: No
[2021-11-09] MEDS ORDERED: PILOCARPINE (NF) 5 MG TAB PO SCH (20:00)
[2021-11-09] MEDS: LORazepam 2 MG/ML VIAL IV PRN (20:47)
[2021-11-09] MEDS: LISINOPRIL 40 MG TAB PO SCH (23:10)
[2021-11-10] MEDS: INSULIN LISPRO 100 UNIT/ML SUB-Q SCH ×4 (00:50→20:46)
[2021-11-10] MEDS: LORazepam 2 MG/ML VIAL IV PRN (02:20)
[2021-11-10] MEDS ORDERED: SODIUM CHLORIDE 0.9% 1000 ML 1,000 ML ONE (05:44)
[2021-11-10] MEDS ORDERED: NORepinephrine/NS 8 MG-250 ML 8 MG/250 ML INFUS..BTL IV ONE (05:44)
[2021-11-10] MEDS ORDERED: EPINEPHrine 1 MG/10 ML SYRINGE ONE (05:59)
[2021-11-10] MEDS ORDERED: EPINEPHrine 1 MG/10 ML SYRINGE IV ONE (05:59)
[2021-11-10] MEDS ORDERED: EPINEPHrine 1 MG/1 ML 8 MG in SODIUM CHLORIDE 0.9% 250ML 242 ML IV SCH (06:00)
--- NOTE | 2021-11-10 06:01 | Event Note ---
Date: 11/10/21 DONTAE TYSON called on 66-year-old male who is status post left hip surgery. Patient was found to be pulseless and unresponsive by the nursing staff. Resuscitative measures were commenced according to ACLS protocol. Patient had 4 rounds of epi, 1 round of sodium bicarb and was successfully intubated by the ER physician. There is return of spontaneous circulation. Patient transferred into the intensive care unit for close monitoring. He has also been started on pressors. Will await follow-up labs and chest x-ray. Consult placed to the underwater welder for evaluation and further recommendations.
[2021-11-10] MEDS: IBUPROFEN 800 MG TAB PO SCH ×2 (06:13→09:00)
[2021-11-10 06:21] LABS: Hematocrit 41.8 % (35.5-45.6); Hemoglobin 14.7 gm/dl (11.8-15.2); Mean Corpuscular HGB Conc 35 % (32-34); Mean Corpuscular Volume 102 fl (84-94); Platelet Count 148 K/mm3 (140-440); Red Cell Distribution Width 14.6 % (13.2-15.2)
[2021-11-10 06:23] LABS: ABG Base Excess -10.7 mmol/L (-2.0-3.0); ABG HCO3 20.3 mmol/L (20.0-26.0); ABG Methemoglobin 0.5 % (0.0-1.5); ABG Oxygen Saturation 99.2 % (95.0-99.0); ABG PCO2 68.1 mm Hg; ABG PO2 237.5 mm Hg (80.0-90.0)
--- NOTE | 2021-11-10 06:25 | XRay Report ---
CHEST 1 VIEW 11/10/2021 5:14 AM INDICATION / CLINICAL INFORMATION: ETT placement. COMPARISON: Endotracheal tube in satisfactory position. FINDINGS: SUPPORT DEVICES: None. HEART / MEDIASTINUM: Within normal limits status post previous median sternotomy. LUNGS / PLEURA: Opacity throughout the right chest. No pneumothorax. ADDITIONAL FINDINGS: No significant additional findings. IMPRESSION: 1. Endotracheal tube in satisfactory position. 2. Probable right-sided pneumonia. Signer Name: Jovanny Carey MD Signed: 11/10/2021 6:21 AM Workstation Name: [id number]
[2021-11-10 06:30] LABS: ABG PH 7.092 pH Units (7.350-7.450)
[2021-11-10] MEDS ORDERED: SODIUM BICARB 8.4% 50 MEQ/50 ML SYRINGE IV ONE ×2 (06:30→06:31)
[2021-11-10] MEDS ORDERED: PHENYLEPHRINE 100 MG in SODIUM CHLORIDE 0.9% 90 ML IV SCH (06:30)
[2021-11-10] MEDS: NORepinephrine/NS 8 MG-250 ML 8 MG/250 ML INFUS..BTL IV SCH (06:32)
[2021-11-10] MEDS ORDERED: CALCIUM GLUCONATE 1,000 MG in SODIUM CHLORIDE 0.9% 100 ML IV ONE (06:44)
[2021-11-10] MEDS ORDERED: ALBUTEROL 2.5 MG/3 ML NEBU IH ONE (07:00)
[2021-11-10] MEDS ORDERED: INSULIN REGULAR, HUMAN 100 UNITS/1 ML IV ONE (07:00)
[2021-11-10] MEDS ORDERED: SODIUM BICARBONATE 150 MEQ in WATER FOR INJECTION (PF) 1,000 ML IV SCH (07:00)
[2021-11-10] MEDS ORDERED: CALC GLUCONATE 1GM/NS 100 ML 1 GM/100 ML BAG IV ONE (07:00)
[2021-11-10] MEDS ORDERED: DEXTROSE 50% IN WATER (25GM) 50 ML SYRINGE IV ONE (07:15)
[2021-11-10] MEDS ORDERED: DEXTROSE 50% IN WATER (25GM) 50 ML VIAL IV ONE (07:15)
[2021-11-10 07:40] LABS: Basophils % (Manual) 0 % (0.0-1.8); Eosinophils % (Manual) 0 % (0.0-4.3); Large Platelets Few; Platelet Estimate Consistent w Auto; RBC Morphology Normal; Total Cells Counted 100
[2021-11-10] MEDS ORDERED: LORazepam 2 MG/ML VIAL IV ONE (08:15)
[2021-11-10 09:55] LABS: Calcium 7.9 mg/dL (8.4-10.2)
[2021-11-10] MEDS: CALCIUM CARBONATE 1250 MG TAB PO SCH ×2 (10:00→22:13)
[2021-11-10] MEDS ORDERED: APIXABAN 2.5 MG TAB PO SCH (10:00)
[2021-11-10] MEDS ORDERED: CANAGLIFLOZIN 300 MG PO SCH (10:00)
[2021-11-10] MEDS: FENOFIBRATE 48 MG TAB PO SCH (10:00)
[2021-11-10] MEDS ORDERED: MAGNESIUM SULFATE 2 GM/50 ML BAG IV SCH (10:30)
--- NOTE | 2021-11-10 10:51 | Electrocardiograph Report ---
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
[2021-11-10 11:12] LABS: ABG Base Excess -2.4 mmol/L (-2.0-3.0); ABG HCO3 23.3 mmol/L (20.0-26.0); ABG PCO2 43.7 mm Hg; ABG PH 7.346 pH Units (7.350-7.450)
[2021-11-10 11:14] LABS: ABG Methemoglobin 0.7 % (0.0-1.5); ABG Oxygen Saturation 99.5 % (95.0-99.0)
[2021-11-10 11:15] LABS: ABG PO2 366.8 mm Hg (80.0-90.0)
[2021-11-10] MEDS: OXYBUTYNIN 5 MG TAB PO SCH ×3 (11:44→20:07)
[2021-11-10] MEDS: carvediloL 12.5 MG TAB PO SCH ×2 (11:45→22:12)
--- NOTE | 2021-11-10 12:02 | Progress Note ---
<RHONDA RESENDIZ - Last Filed: 11/10/21 16:35> Assessment and Plan Assessment and plan: This is a 66-year-old male with past medical history of alcohol abuse, HTN, CAD s/p CABG 12 years ago, Head and Neck CA s/p removal 2years ago, and recent paroxysmaln Afib was on Eliquis at home admitted for left femoral neck fracture due to fall at home s/p IM nail stabilization by Ortho on 11/09. Patient is now s/p PEA arrested with ROSC requiring ventilatory support. ICU Course to Date: 11/10: Unresponsive and on the vent, not on any sedations. Pupils are irregular and nonreactive, with no cough/gag reflexes. Rhythmic twitching of patient right side of the face noted, s/p 1mg IV Ativan with no improvement. Will check an EEG and Neurology consulted. Patient is on 80% Fio2, peep of 8 this am, SPO2 at 100%,orders placed for repeat ABG. Titrate Fio2 as tolerated for SPO2 above 95%. Will also check 2D echo and bilateral lower extremities to r/o DVT. Patient is also on low dose Lephoved gtt, continue to titrate for MAP above 65. Hyperkalemia also noted from this am, treated per protocol, repeat lab ordered 4hrs post treatment. Renal function also worsen post coded, continue IVF rehydration, consider Nephrology consult if worsen. Continue to monitor renal function and electrolytes. trend BMP and lactic acid. Assessment and Plan #s/p PEA Arrest with ROSC #H/o CAD s/p CABG- 12 years ago - Code blue on 11/10- PEA arrested with ROSC - SR to ST on the monitor this am - 12 lead EKG noted, [place] appreciated- probably due to high K - Patient on low dose pressor this am - Continue rehydration with cont. IVF - Continue blood pressure monitor per protocol - Titrate pressors for MAP above 65 - 2D Echo and Bilateral doppler pending #Acute Hypoxemic Respiratory Failure - Intubated during code on 11/10 - Vent setting: PRVC-80%,8,28,500 - This AM ABG pending - CCM consulted, appreciate recommendations - Will need CTA chest to r/o PE once stable - VAP bundle addressed - Aspiration precaution HOB above 30 - Daily ABG and CXR - Continue SPO2 monitoring for SPO2 goal above 92% #Acute Metabolic Encephalopathy #Myoclonic Jerks #H/o Alcohol Abuse/ Alcohol Intoxication - Fall at home while drinking. Presented intoxicated - Was on CIWA protocol on the floor - S/p PEA arrest- unresponsive, not on any sedation - Rhythmic twitching of right side of the face noted - Unresponsive to IV Ativan - EEG pending - Neurology consulted - Will need CT head/Brain once more stable or per CCM - PRN Ativan for seizures like activities #Acute Kidney Injury(LIANG) most likely ATN #Hyperkalemia - due to hypoperfusion/hypotension - Scr. jumped to 1.4 this am - high K treated per protocol - Repeat BMP 4hrs post treatment - Continue rehydration with cont. IVF - Strict intake and output - Avoid nephrotoxic medications; Renally dose medications - Monitor and replace electrolytes as needed - Consider Nephrology consult if worsen #Closed Left Intertrochanteric Fracture #S/p IM nail stabilization - Fall at home, imaging revealed left femoral neck fracture - Orthopedic surgery consulted; appreciate recs - 11/09 s/p IM nail stabilization of the left femoral neck fracture by Ortho - Left hip dressing noted with no complications - Insicion management per Ortho - Plan to resume home Eliquis #GI/DVT prophylaxis - PPI- Pepcid - SCDs to bilateral lower extremities while in bed The high probability of a clinically significant, sudden or life threatening deterioration of the [multiple] system(s) required my full and direct attention, intervention and personal management. The aggregate critical care time was [60] minutes. This time is in addition to time spent performing reported procedures but includes the following: [x] Data Review and interpretation [x] Patient assessment and monitoring of vital signs [x] Documentation [x] Medication orders and management Disposition Plan: ICU Total Time Spent with Patient (Minutes): 60 History Interval history: Patient seen and examined at the bedside. s/p PEA arrest on the floor. Now Intubated and unresponsive, not on any sedations. Pupils are irregular and nonreactive, with no gag/cough reflexes. Rhytmic twitching/jerking of the right side of face noted, s/p 1mg IV Ativan with no response. Patient is on low dose Levophed and bcarb gtt this am, SR to ST on the monitor. Hospitalist Physical - Constitutional Vitals: Temp Pulse Resp BP Pulse Ox 98.3 F 93 H 28 H 119/65 100 11/09/21 22:18 11/10/21 08:19 11/10/21 06:48 11/10/21 08:19 11/10/21 08:19 General appearance: Present: no acute distress, well-nourished, obese, other (Intubated and unresponsive) - EENT Eyes: Present: irregular pupil - Respiratory Respiratory effort: normal Respiratory: bilateral: rhonchi - Cardiovascular Rhythm: regular Heart Sounds: Present: S1 & S2 - Extremities Extremities: no ischemia, pulses intact, pulses symmetrical Extremity abnormal: edema, other (Left hip dressing present, no complications noted) - Peripheral Assessment Generalized Edema Type: Non-pitting Edema Degree: 1+ Capillary Refill: < 3 seconds Skin Temperature: Warm Peripheral Pulses: within normal limits - Abdominal General gastrointestinal: soft, non-distended, normal bowel sounds - Integumentary Integumentary: Present: warm, dry - Psychiatric Psychiatric: other (Intubated and unresponsive) - Neurologic Neurologic: focal deficits (Pupils are irregular and nonreactive, with no gag/cough), other (Intubated and unresponsive) - Allied Health Allied health notes reviewed: nursing Results - Labs CBC & Chem 7: 11/10/21 06:12 11/10/21 12:19 Labs: Laboratory Last Values WBC 9.4 K/mm3 (4.5-11.0) 11/10/21 06:12 RBC 4.10 M/mm3 (3.65-5.03) 11/10/21 06:12 Hgb 14.7 gm/dl (11.8-15.2) 11/10/21 06:12 Hct 41.8 % (35.5-45.6) 11/10/21 06:12 MCV 102 fl (84-94) H 11/10/21 06:12 MCH 36 pg (28-32) H 11/10/21 06:12 MCHC 35 % (32-34) H 11/10/21 06:12 RDW 14.6 % (13.2-15.2) 11/10/21 06:12 Plt Count 148 K/mm3 (140-440) 11/10/21 06:12 Lymph % (Auto) 10.2 % (13.4-35.0) L 11/09/21 06:39 [place] % (Auto) 11.0 % (0.0-7.3) H 11/09/21 06:39 Eos % (Auto) 2.1 % (0.0-4.3) 11/09/21 06:39 Baso % (Auto) 0.5 % (0.0-1.8) 11/09/21 06:39 Lymph # (Auto) 0.5 K/mm3 (1.2-5.4) L 11/09/21 06:39 [place] # (Auto) 0.5 K/mm3 (0.0-0.8) 11/09/21 06:39 Eos # (Auto) 0.1 K/mm3 (0.0-0.4) 11/09/21 06:39 Baso # (Auto) 0.0 K/mm3 (0.0-0.1) 11/09/21 06:39 Add Manual Diff Complete 11/10/21 06:12 Total Counted 100 11/10/21 06:12 Seg Neutrophils % 76.2 % (40.0-70.0) H 11/09/21 06:39 Seg Neuts % (Manual) 75.0 % (40.0-70.0) H 11/10/21 06:12 Band Neutrophils % 0 % 11/10/21 06:12 Lymphocytes % (Manual) 18.0 % (13.4-35.0) 11/10/21 06:12 Reactive Lymphs % (Man) 0 % 11/10/21 06:12 Monocytes % (Manual) 6.0 % (0.0-7.3) 11/10/21 06:12 Eosinophils % (Manual) 0 % (0.0-4.3) 11/10/21 06:12 Basophils % (Manual) 0 % (0.0-1.8) 11/10/21 06:12 Metamyelocytes % 1.0 % 11/10/21 06:12 Myelocytes % 0 % 11/10/21 06:12 Promyelocytes % 0 % 11/10/21 06:12 Blast Cells % 0 % 11/10/21 06:12 Nucleated RBC % Not Reportable 11/10/21 06:12 Seg Neutrophils # 3.7 K/mm3 (1.8-7.7) 11/09/21 06:39 Seg Neutrophils # Man 7.1 K/mm3 (1.8-7.7) 11/10/21 06:12 Band Neutrophils # 0.0 K/mm3 11/10/21 06:12 Lymphocytes # (Manual) 1.7 K/mm3 (1.2-5.4) 11/10/21 06:12 Abs React Lymphs (Man) 0.0 K/mm3 11/10/21 06:12 Monocytes # (Manual) 0.6 K/mm3 (0.0-0.8) 11/10/21 06:12 Eosinophils # (Manual) 0.0 K/mm3 (0.0-0.4) 11/10/21 06:12 Basophils # (Manual) 0.0 K/mm3 (0.0-0.1) 11/10/21 06:12 Metamyelocytes # 0.1 K/mm3 11/10/21 06:12 Myelocytes # 0.0 K/mm3 11/10/21 06:12 Promyelocytes # 0.0 K/mm3 11/10/21 06:12 Blast Cells # 0.0 K/mm3 11/10/21 06:12 WBC Morphology Not Reportable 11/10/21 06:12 Hypersegmented Neuts Not Reportable 11/10/21 06:12 Hyposegmented Neuts Not Reportable 11/10/21 06:12 Hypogranular Neuts Not Reportable 11/10/21 06:12 Smudge Cells Not Reportable 11/10/21 06:12 Toxic Granulation Not Reportable 11/10/21 06:12 Toxic Vacuolation Not Reportable 11/10/21 06:12 Dohle Bodies Not Reportable 11/10/21 06:12 Pelger-Huet Anomaly Not Reportable 11/10/21 06:12 Dayday Rods Not Reportable 11/10/21 06:12 Platelet Estimate Consistent w auto 11/10/21 06:12 Clumped Platelets Not Reportable 11/10/21 06:12 Plt Clumps, EDTA Not Reportable 11/10/21 06:12 Large Platelets Few 11/10/21 06:12 Giant Platelets Not Reportable 11/10/21 06:12 Platelet Satelliting Not Reportable 11/10/21 06:12 Plt Morphology Comment Not Reportable 11/10/21 06:12 RBC Morphology Normal 11/10/21 06:12 Dimorphic RBCs Not Reportable 11/10/21 06:12 Polychromasia Not Reportable 11/10/21 06:12 Hypochromasia Not Reportable 11/10/21 06:12 Poikilocytosis Not Reportable 11/10/21 06:12 Anisocytosis Not Reportable 11/10/21 06:12 Microcytosis Not Reportable 11/10/21 06:12 Macrocytosis Not Reportable 11/10/21 06:12 Spherocytes Not Reportable 11/10/21 06:12 Pappenheimer Bodies Not Reportable 11/10/21 06:12 Sickle Cells Not Reportable 11/10/21 06:12 Target Cells Not Reportable 11/10/21 06:12 Tear Drop Cells Not Reportable 11/10/21 06:12 Ovalocytes Not Reportable 11/10/21 06:12 Helmet Cells Not Reportable 11/10/21 06:12 [place] Bodies Not Reportable 11/10/21 06:12 [place] Rings Not Reportable 11/10/21 06:12 [place] Cells Not Reportable 11/10/21 06:12 Bite Cells Not Reportable 11/10/21 06:12 Crenated Cell Not Reportable 11/10/21 06:12 Elliptocytes Not Reportable 11/10/21 06:12 Acanthocytes (Spur) Not Reportable 11/10/21 06:12 Rouleaux Not Reportable 11/10/21 06:12 Hemoglobin C Crystals Not Reportable 11/10/21 06:12 Schistocytes Not Reportable 11/10/21 06:12 Malaria parasites Not Reportable 11/10/21 06:12 Logan Bodies Not Reportable 11/10/21 06:12 Hem Pathologist Commnt No 11/10/21 06:12 PT 14.2 Sec. (12.2-14.9) 11/09/21 15:51 INR 0.99 (0.87-1.13) 11/09/21 15:51 APTT 28.6 Sec. (24.2-36.6) 11/09/21 15:51 ABG pH 7.346 pH Units (7.350-7.450) L 11/10/21 11:00 ABG pCO2 43.7 mm Hg 11/10/21 11:00 ABG pO2 366.8 mm Hg (80.0-90.0) H 11/10/21 11:00 ABG HCO3 23.3 mmol/L (20.0-26.0) 11/10/21 11:00 ABG O2 Saturation 99.5 % (95.0-99.0) H 11/10/21 11:00 ABG O2 Content 21.9 (0.0-44) 11/10/21 11:00 ABG Base Excess -2.4 mmol/L (-2.0-3.0) L 11/10/21 11:00 ABG Hemoglobin 15.4 gm/dl (14.0-18.0) 11/10/21 11:00 ABG Carboxyhemoglobin 1.3 % (0.0-5.0) 11/10/21 11:00 ABG Methemoglobin 0.7 % (0.0-1.5) 11/10/21 11:00 Oxyhemoglobin 97.6 % (95.0-99.0) 11/10/21 11:00 FiO2 80 % 11/10/21 11:00 Sodium 138 mmol/L (137-145) 11/10/21 06:11 Potassium 5.4 mmol/L (3.6-5.0) H 11/10/21 09:25 Chloride 101.1 mmol/L (98-107) 11/10/21 06:11 Carbon Dioxide 22 mmol/L (22-30) 11/10/21 06:11 Anion Gap 21 mmol/L 11/10/21 06:11 BUN 16 mg/dL (9-20) 11/10/21 06:11 Creatinine 1.4 mg/dL (0.8-1.3) H 11/10/21 06:11 Estimated GFR 50 ml/min 11/10/21 06:11 BUN/Creatinine Ratio 11 % 11/10/21 06:11 Glucose 113 mg/dL (75-100) H 11/10/21 06:11 POC Glucose 131 mg/dL (70-105) H 11/10/21 08:03 Lactic Acid 5.40 mmol/L (0.7-2.0) H* 11/10/21 06:12 Calcium 7.9 mg/dL (8.4-10.2) L 11/10/21 09:25 Magnesium 1.70 mg/dL (1.7-2.3) 11/10/21 09:25 Total Bilirubin 0.20 mg/dL (0.1-1.2) 11/07/21 04:46 AST 15 units/L (5-40) 11/07/21 04:46 ALT 10 units/L (7-56) 11/07/21 04:46 Alkaline Phosphatase 68 units/L (35-129) 11/07/21 04:46 Total Protein 7.1 g/dL (6.3-8.2) 11/07/21 04:46 Albumin 4.2 g/dL (3.9-5) 11/07/21 04:46 Albumin/Globulin Ratio 1.4 % 11/07/21 04:46 Urine Color Yellow (Yellow) 11/07/21 06:24 Urine Turbidity Clear (Clear) 11/07/21 06:24 Urine pH 6.0 (5.0-7.0) 11/07/21 06:24 Ur Specific [place] 1.006 (1.003-1.030) 11/07/21 06:24 Urine Protein <15 mg/dl mg/dL (Negative) 11/07/21 06:24 Urine Glucose (UA) Neg mg/dL (Negative) 11/07/21 06:24 Urine Ketones Neg mg/dL (Negative) 11/07/21 06:24 Urine Blood Sm (Negative) 11/07/21 06:24 Urine Nitrite Neg (Negative) 11/07/21 06:24 Urine Bilirubin Neg (Negative) 11/07/21 06:24 Urine Urobilinogen < 2.0 mg/dL (<2.0) 11/07/21 06:24 Ur Leukocyte Esterase Neg (Negative) 11/07/21 06:24 Urine WBC (Auto) < 1.0 /HPF (0.0-6.0) 11/07/21 06:24 Urine RBC (Auto) < 1.0 /HPF (0.0-6.0) 11/07/21 06:24 Urine Opiates Screen Negative 11/07/21 06:24 Urine Methadone Screen Negative 11/07/21 06:24 Ur Barbiturates Screen Negative 11/07/21 06:24 Ur Phencyclidine Scrn Negative 11/07/21 06:24 Ur Amphetamines Screen Negative 11/07/21 06:24 U Benzodiazepines Scrn Negative 11/07/21 06:24 Urine Cocaine Screen Negative 11/07/21 06:24 U Marijuana (THC) Screen Negative 11/07/21 06:24 Drugs of Abuse Note Disclamer 11/07/21 06:24 Plasma/Serum Alcohol 0.17 % (0-0.07) H 11/07/21 04:46 Blood Type O POSITIVE 11/07/21 05:35 Antibody Screen Negative 11/07/21 05:35 Microbiology: Microbiology 11/10/21 09:25 Peripheral/Venous Blood Culture - Preliminary Culture in Progress 11/10/21 09:25 Peripheral/Venous Blood Culture - Preliminary Culture in Progress [place]/IV: Voiding Method Urinal Active Medications - Current Medications Current Medications: Generic Name Dose Route Start Last Admin Trade Name Freq PRN Reason Stop Dose Admin Acetaminophen 650 mg 11/07/21 05:39 Acetaminophen 325 Mg Tab PO Q4H PRN Fever >101 Albuterol 2.5 mg 11/07/21 05:39 Albuterol 2.5 Mg/3 Ml Nebu IH Q3HRT PRN Shortness Of Breath Apixaban 2.5 mg 11/10/21 10:00 11/10/21 11:45 Apixaban 2.5 Mg Tab PO 12/15/21 09:59 Not Given Q12HR JANICE Protocol Atorvastatin Calcium 40 mg 11/09/21 22:00 11/09/21 23:24 Atorvastatin 40 Mg Tab PO 40 mg QHS JANICE Administration Calcium Carbonate/Glycine 1,250 mg 11/10/21 10:00 Calcium Carbonate 1250 Mg Tab PO BID JANICE Carvedilol 12.5 mg 11/07/21 10:00 11/10/21 11:45 Carvedilol 12.5 Mg Tab PO Not Given BID JANICE Dextrose 0 ml 11/07/21 05:49 11/09/21 05:50 Dextrose 10% *Hypoglycemia IV 50 ml PRN PRN Administration Hypoglycemia Famotidine 20 mg 11/10/21 10:00 Famotidine 20 Mg/2 Ml Inj IV BID JANICE Fenofibrate 48 mg 11/07/21 10:00 11/09/21 15:45 Fenofibrate 48 Mg Tab PO Not Given DAILY JANICE Hydralazine HCl 10 mg 11/07/21 05:49 Hydralazine 20 Mg/1 Ml Inj IV Q6H PRN SBP > 170; DBP > 100 Hydromorphone HCl 1 mg 11/07/21 08:08 11/09/21 17:55 Hydromorphone 1 Mg/1 Ml Inj IV 1 mg Q3H PRN Administration Pain , Severe (7-10) Lactated Ringer's 1,000 mls @ 100 mls/hr 11/09/21 11:45 11/09/21 20:42 Lactated Ringers IV 100 mls/hr DIRECT JANICE Administration Epinephrine 8 mg/ Sodium 250 mls @ 3.75 mls/hr 11/10/21 06:00 11/10/21 11:47 Chloride IV 0 mcg/min TITR JANICE 0 mls/hr Titration Protocol 2 MCG/MIN NORepinephrine/NS 8 MG-250 ML 8 mg in 250 mls @ 56.25 mls/hr 11/10/21 06:00 11/10/21 11:30 Norepinephrine/Ns 8 Mg-250 Ml (Double Conc) IV 0 mcg/min TITRATE JANICE 0 mls/hr Titration Protocol 30 MCG/MIN Phenylephrine HCl 100 mg/ 100 mls @ 3 mls/hr 11/10/21 06:30 Sodium Chloride IV TITR JANICE Protocol 50 MCG/MIN Sodium Bicarbonate 150 meq/ 1,150 mls @ 100 mls/hr 11/10/21 07:00 11/10/21 09:25 Sterile Water IV 100 mls/hr DIRECT JANICE Administration Magnesium Sulfate 2 gm in 50 mls @ 25 mls/hr 11/10/21 10:30 Magnesium Sulfate 2gm/50ml IV 11/10/21 12:30 ONCE@1030 [facility] Insulin Human Lispro 0 unit 11/07/21 06:00 11/10/21 00:50 Insulin Lispro 100 Unit/Ml SUB-Q Not Given Q6HR [facility] Protocol Lisinopril 40 mg 11/07/21 22:00 11/09/21 23:10 Lisinopril 40 Mg Tab PO 40 mg QHS JANICE Administration Lorazepam 2 mg 11/07/21 05:49 11/10/21 02:20 Lorazepam 2 Mg/Ml Vial IV 2 mg Q1H PRN Administration CIWA-Ar 8-15 Morphine Sulfate 2 mg 11/07/21 05:39 11/08/21 06:02 Morphine 2 Mg/1 Ml Inj IV 2 mg Q4H PRN Administration Pain, Moderate (4-6) Niacin 500 mg 11/10/21 22:00 Niacin Er 500 Mg Tab PO HS JANICE Ondansetron HCl 4 mg 11/07/21 05:39 Ondansetron 4 Mg/2 Ml Inj IV Q8H PRN Nausea And Vomiting Oxybutynin Chloride 5 mg 11/07/21 08:00 11/10/21 11:44 Oxybutynin 5 Mg Tab PO Not Given TID JANICE Sodium Chloride 10 ml 11/07/21 10:00 11/09/21 23:26 Sodium Chloride 0.9% 10 Ml Flush Syringe IV 10 ml BID JANICE Administration Sodium Chloride 10 ml 11/07/21 05:39 Sodium Chloride 0.9% 10 Ml Flush Syringe IV PRN PRN LINE FLUSH Sodium Polystyrene Sulfonate 30 gm 11/10/21 10:30 Sodium Polystyrene 15 Gm/60 Ml Oral Liqd PO 11/10/21 12:30 ONCE@1030 JANICE <LUCAS CURRY - Last Filed: 11/11/21 07:24> Assessment and Plan Assessment and plan: I saw and evaluated the patient. I agree with the findings and the plan of care as documented in the Nurse Practitioner's~note, with the following corrections and additions. Hospitalist Physical - Constitutional Vitals: Temp Pulse Resp BP Pulse Ox 102 F H 110 H 28 H 134/75 100 11/11/21 04:00 11/11/21 06:00 11/11/21 06:00 11/11/21 06:00 11/11/21 06:00 Results - Labs CBC & Chem 7: 11/11/21 04:32 11/11/21 04:32 Labs: Laboratory Last Values WBC 8.8 K/mm3 (4.5-11.0) 11/11/21 04:32 RBC 3.95 M/mm3 (3.65-5.03) 11/11/21 04:32 Hgb 14.1 gm/dl (11.8-15.2) 11/11/21 04:32 Hct 39.8 % (35.5-45.6) 11/11/21 04:32 MCV 101 fl (84-94) H 11/11/21 04:32 MCH 36 pg (28-32) H 11/11/21 04:32 MCHC 35 % (32-34) H 11/11/21 04:32 RDW 14.4 % (13.2-15.2) 11/11/21 04:32 Plt Count 128 K/mm3 (140-440) L 11/11/21 04:32 Lymph % (Auto) 10.2 % (13.4-35.0) L 11/09/21 06:39 [place] % (Auto) 11.0 % (0.0-7.3) H 11/09/21 06:39 Eos % (Auto) 2.1 % (0.0-4.3) 11/09/21 06:39 Baso % (Auto) 0.5 % (0.0-1.8) 11/09/21 06:39 Lymph # (Auto) 0.5 K/mm3 (1.2-5.4) L 11/09/21 06:39 [place] # (Auto) 0.5 K/mm3 (0.0-0.8) 11/09/21 06:39 Eos # (Auto) 0.1 K/mm3 (0.0-0.4) 11/09/21 06:39 Baso # (Auto) 0.0 K/mm3 (0.0-0.1) 11/09/21 06:39 Add Manual Diff Complete 11/10/21 06:12 Total Counted 100 11/10/21 06:12 Seg Neutrophils % 76.2 % (40.0-70.0) H 11/09/21 06:39 Seg Neuts % (Manual) 75.0 % (40.0-70.0) H 11/10/21 06:12 Band Neutrophils % 0 % 11/10/21 06:12 Lymphocytes % (Manual) 18.0 % (13.4-35.0) 11/10/21 06:12 Reactive Lymphs % (Man) 0 % 11/10/21 06:12 Monocytes % (Manual) 6.0 % (0.0-7.3) 11/10/21 06:12 Eosinophils % (Manual) 0 % (0.0-4.3) 11/10/21 06:12 Basophils % (Manual) 0 % (0.0-1.8) 11/10/21 06:12 Metamyelocytes % 1.0 % 11/10/21 06:12 Myelocytes % 0 % 11/10/21 06:12 Promyelocytes % 0 % 11/10/21 06:12 Blast Cells % 0 % 11/10/21 06:12 Nucleated RBC % Not Reportable 11/10/21 06:12 Seg Neutrophils # 3.7 K/mm3 (1.8-7.7) 11/09/21 06:39 Seg Neutrophils # Man 7.1 K/mm3 (1.8-7.7) 11/10/21 06:12 Band Neutrophils # 0.0 K/mm3 11/10/21 06:12 Lymphocytes # (Manual) 1.7 K/mm3 (1.2-5.4) 11/10/21 06:12 Abs React Lymphs (Man) 0.0 K/mm3 11/10/21 06:12 Monocytes # (Manual) 0.6 K/mm3 (0.0-0.8) 11/10/21 06:12 Eosinophils # (Manual) 0.0 K/mm3 (0.0-0.4) 11/10/21 06:12 Basophils # (Manual) 0.0 K/mm3 (0.0-0.1) 11/10/21 06:12 Metamyelocytes # 0.1 K/mm3 11/10/21 06:12 Myelocytes # 0.0 K/mm3 11/10/21 06:12 Promyelocytes # 0.0 K/mm3 11/10/21 06:12 Blast Cells # 0.0 K/mm3 11/10/21 06:12 WBC Morphology Not Reportable 11/10/21 06:12 Hypersegmented Neuts Not Reportable 11/10/21 06:12 Hyposegmented Neuts Not Reportable 11/10/21 06:12 Hypogranular Neuts Not Reportable 11/10/21 06:12 Smudge Cells Not Reportable 11/10/21 06:12 Toxic Granulation Not Reportable 11/10/21 06:12 Toxic Vacuolation Not Reportable 11/10/21 06:12 Dohle Bodies Not Reportable 11/10/21 06:12 Pelger-Huet Anomaly Not Reportable 11/10/21 06:12 Dayday Rods Not Reportable 11/10/21 06:12 Platelet Estimate Consistent w auto 11/10/21 06:12 Clumped Platelets Not Reportable 11/10/21 06:12 Plt Clumps, EDTA Not Reportable 11/10/21 06:12 Large Platelets Few 11/10/21 06:12 Giant Platelets Not Reportable 11/10/21 06:12 Platelet Satelliting Not Reportable 11/10/21 06:12 Plt Morphology Comment Not Reportable 11/10/21 06:12 RBC Morphology Normal 11/10/21 06:12 Dimorphic RBCs Not Reportable 11/10/21 06:12 Polychromasia Not Reportable 11/10/21 06:12 Hypochromasia Not Reportable 11/10/21 06:12 Poikilocytosis Not Reportable 11/10/21 06:12 Anisocytosis Not Reportable 11/10/21 06:12 Microcytosis Not Reportable 11/10/21 06:12 Macrocytosis Not Reportable 11/10/21 06:12 Spherocytes Not Reportable 11/10/21 06:12 Pappenheimer Bodies Not Reportable 11/10/21 06:12 Sickle Cells Not Reportable 11/10/21 06:12 Target Cells Not Reportable 11/10/21 06:12 Tear Drop Cells Not Reportable 11/10/21 06:12 Ovalocytes Not Reportable 11/10/21 06:12 Helmet Cells Not Reportable 11/10/21 06:12 [place] Bodies Not Reportable 11/10/21 06:12 [place] Rings Not Reportable 11/10/21 06:12 [place] Cells Not Reportable 11/10/21 06:12 Bite Cells Not Reportable 11/10/21 06:12 Crenated Cell Not Reportable 11/10/21 06:12 Elliptocytes Not Reportable 11/10/21 06:12 Acanthocytes (Spur) Not Reportable 11/10/21 06:12 Rouleaux Not Reportable 11/10/21 06:12 Hemoglobin C Crystals Not Reportable 11/10/21 06:12 Schistocytes Not Reportable 11/10/21 06:12 Malaria parasites Not Reportable 11/10/21 06:12 [place] Bodies Not Reportable 11/10/21 06:12 Hem Pathologist Commnt No 11/10/21 06:12 PT 14.2 Sec. (12.2-14.9) 11/09/21 15:51 INR 0.99 (0.87-1.13) 11/09/21 15:51 APTT 28.6 Sec. (24.2-36.6) 11/09/21 15:51 ABG pH 7.419 pH Units (7.350-7.450) 11/11/21 04:40 ABG pCO2 36.4 mm Hg 11/11/21 04:40 ABG pO2 144.3 mm Hg (80.0-90.0) H 11/11/21 04:40 ABG HCO3 23.0 mmol/L (20.0-26.0) 11/11/21 04:40 ABG O2 Saturation 98.8 % (95.0-99.0) 11/11/21 04:40 ABG O2 Content 19.4 (0.0-44) 11/11/21 04:40 ABG Base Excess -1.0 mmol/L (-2.0-3.0) 11/11/21 04:40 ABG Hemoglobin 14.0 gm/dl (14.0-18.0) 11/11/21 04:40 ABG Carboxyhemoglobin 1.0 % (0.0-5.0) 11/11/21 04:40 ABG Methemoglobin 0.5 % (0.0-1.5) 11/11/21 04:40 Oxyhemoglobin 97.2 % (95.0-99.0) 11/11/21 04:40 FiO2 45 % 11/11/21 04:40 Sodium 142 mmol/L (137-145) 11/11/21 04:32 Potassium 4.3 mmol/L (3.6-5.0) 11/11/21 04:32 Chloride 102.6 mmol/L (98-107) 11/11/21 04:32 Carbon Dioxide 24 mmol/L (22-30) 11/11/21 04:32 Anion Gap 20 mmol/L 11/11/21 04:32 BUN 42 mg/dL (9-20) H 11/11/21 04:32 Creatinine 3.3 mg/dL (0.8-1.3) H 11/11/21 04:32 Estimated GFR 19 ml/min 11/11/21 04:32 BUN/Creatinine Ratio 13 % 11/11/21 04:32 Glucose 171 mg/dL (75-100) H 11/11/21 04:32 POC Glucose 146 mg/dL (70-105) H 11/10/21 22:00 Lactic Acid 2.10 mmol/L (0.7-2.0) H* 11/11/21 04:32 Calcium 8.2 mg/dL (8.4-10.2) L 11/11/21 04:32 Phosphorus 3.10 mg/dL (2.5-4.5) 11/11/21 04:32 Magnesium 2.20 mg/dL (1.7-2.3) 11/11/21 04:32 Total Bilirubin 0.20 mg/dL (0.1-1.2) 11/07/21 04:46 AST 15 units/L (5-40) 11/07/21 04:46 ALT 10 units/L (7-56) 11/07/21 04:46 Alkaline Phosphatase 68 units/L (35-129) 11/07/21 04:46 Total Protein 7.1 g/dL (6.3-8.2) 11/07/21 04:46 Albumin 4.2 g/dL (3.9-5) 11/07/21 04:46 Albumin/Globulin Ratio 1.4 % 11/07/21 04:46 Urine Color Yellow (Yellow) 11/07/21 06:24 Urine Turbidity Clear (Clear) 11/07/21 06:24 Urine pH 6.0 (5.0-7.0) 11/07/21 06:24 Ur Specific [place] 1.006 (1.003-1.030) 11/07/21 06:24 Urine Protein <15 mg/dl mg/dL (Negative) 11/07/21 06:24 Urine Glucose (UA) Neg mg/dL (Negative) 11/07/21 06:24 Urine Ketones Neg mg/dL (Negative) 11/07/21 06:24 Urine Blood Sm (Negative) 11/07/21 06:24 Urine Nitrite Neg (Negative) 11/07/21 06:24 Urine Bilirubin Neg (Negative) 11/07/21 06:24 Urine Urobilinogen < 2.0 mg/dL (<2.0) 11/07/21 06:24 Ur Leukocyte Esterase Neg (Negative) 11/07/21 06:24 Urine WBC (Auto) < 1.0 /HPF (0.0-6.0) 11/07/21 06:24 Urine RBC (Auto) < 1.0 /HPF (0.0-6.0) 11/07/21 06:24 Urine Opiates Screen Negative 11/07/21 06:24 Urine Methadone Screen Negative 11/07/21 06:24 Ur Barbiturates Screen Negative 11/07/21 06:24 Ur Phencyclidine Scrn Negative 11/07/21 06:24 Ur Amphetamines Screen Negative 11/07/21 06:24 U Benzodiazepines Scrn Negative 11/07/21 06:24 Urine Cocaine Screen Negative 11/07/21 06:24 U Marijuana (THC) Screen Negative 11/07/21 06:24 Drugs of Abuse Note Disclamer 11/07/21 06:24 Plasma/Serum Alcohol 0.17 % (0-0.07) H 11/07/21 04:46 Blood Type O POSITIVE 11/07/21 05:35 Antibody Screen Negative 11/07/21 05:35 Microbiology: Microbiology 11/10/21 Unknown Tracheal Aspirate Sputum Culture - Preliminary 11/10/21 09:25 Peripheral/Venous Blood Culture - Preliminary Culture in Progress 11/10/21 09:25 Peripheral/Venous Blood Culture - Preliminary Culture in Progress [place]/IV: Voiding Method Incontinent Active Medications - Current Medications Current Medications: Generic Name Dose Route Start Last Admin Trade Name Freq PRN Reason Stop Dose Admin Acetaminophen 650 mg 11/07/21 05:39 11/10/21 20:05 Acetaminophen 325 Mg Tab PO 650 mg Q4H PRN Administration Fever >101 Albuterol 2.5 mg 11/07/21 05:39 Albuterol 2.5 Mg/3 Ml Nebu IH Q3HRT PRN Shortness Of Breath Atorvastatin Calcium 40 mg 11/09/21 22:00 11/10/21 22:12 Atorvastatin 40 Mg Tab PO Not Given QHS JANICE Calcium Carbonate/Glycine 1,250 mg 11/10/21 10:00 11/10/21 22:13 Calcium Carbonate 1250 Mg Tab PO Not Given BID JANICE Carvedilol 12.5 mg 11/07/21 10:00 11/10/21 22:12 Carvedilol 12.5 Mg Tab PO Not Given BID JANICE Dextrose 0 ml 11/07/21 05:49 11/09/21 05:50 Dextrose 10% *Hypoglycemia IV 50 ml PRN PRN Administration Hypoglycemia Famotidine 20 mg 11/10/21 10:00 11/10/21 22:13 Famotidine 20 Mg/2 Ml Inj IV 20 mg BID JANICE Administration Fenofibrate 48 mg 11/07/21 10:00 11/10/21 10:00 Fenofibrate 48 Mg Tab PO Not Given DAILY JANICE Hydralazine HCl 10 mg 11/07/21 05:49 Hydralazine 20 Mg/1 Ml Inj IV Q6H PRN SBP > 170; DBP > 100 Hydromorphone HCl 1 mg 11/07/21 08:08 11/09/21 17:55 Hydromorphone 1 Mg/1 Ml Inj IV 1 mg Q3H PRN Administration Pain , Severe (7-10) Lactated Ringer's 1,000 mls @ 100 mls/hr 11/09/21 11:45 11/09/21 20:42 Lactated Ringers IV 100 mls/hr DIRECT JANICE Administration Epinephrine 8 mg/ Sodium 250 mls @ 3.75 mls/hr 11/10/21 06:00 11/10/21 11:47 Chloride IV 0 mcg/min TITR JANICE 0 mls/hr Titration Protocol 2 MCG/MIN NORepinephrine/NS 8 MG-250 ML 8 mg in 250 mls @ 56.25 mls/hr 11/10/21 06:00 11/10/21 11:30 Norepinephrine/Ns 8 Mg-250 Ml (Double Conc) IV 0 mcg/min TITRATE JANICE 0 mls/hr Titration Protocol 30 MCG/MIN Phenylephrine HCl 100 mg/ 100 mls @ 3 mls/hr 11/10/21 06:30 Sodium Chloride IV TITR JANICE Protocol 50 MCG/MIN Dextrose/Sodium Chloride 1,000 mls @ 50 mls/hr 11/10/21 18:00 11/10/21 18:07 D5/0.45ns IV 11/11/21 18:00 50 mls/hr DIRECT JANICE Administration Insulin Human Lispro 0 unit 11/07/21 06:00 11/11/21 06:25 Insulin Lispro 100 Unit/Ml SUB-Q 2 unit Q6HR JANICE Administration Protocol Lisinopril 40 mg 11/07/21 22:00 11/10/21 22:13 Lisinopril 40 Mg Tab PO Not Given QHS JANICE Lorazepam 2 mg 11/07/21 05:49 11/10/21 02:20 Lorazepam 2 Mg/Ml Vial IV 2 mg Q1H PRN Administration CIWA-Ar 8-15 Morphine Sulfate 2 mg 11/07/21 05:39 11/08/21 06:02 Morphine 2 Mg/1 Ml Inj IV 2 mg Q4H PRN Administration Pain, Moderate (4-6) Niacin 500 mg 11/10/21 22:00 11/10/21 22:12 Niacin Er 500 Mg Tab PO Not Given HS JANICE Ondansetron HCl 4 mg 11/07/21 05:39 Ondansetron 4 Mg/2 Ml Inj IV Q8H PRN Nausea And Vomiting Oxybutynin Chloride 5 mg 11/07/21 08:00 11/10/21 20:07 Oxybutynin 5 Mg Tab PO 5 mg TID JANICE Administration Sodium Chloride 10 ml 11/07/21 10:00 11/10/21 22:13 Sodium Chloride 0.9% 10 Ml Flush Syringe IV 10 ml BID JANICE Administration Sodium Chloride 10 ml 11/07/21 05:39 Sodium Chloride 0.9% 10 Ml Flush Syringe IV PRN PRN LINE FLUSH
[2021-11-10] MEDS: FAMOTIDINE 20 MG/2 ML INJ IV SCH ×2 (12:03→22:13)
--- NOTE | 2021-11-10 12:09 | XRay Report ---
XR abdomen 1V ap INDICATION: OGT placement. COMPARISON: None available. FINDINGS: The tip of the esophagogastric tube projects over the body of the stomach. Signer Name: Yuan Self MD Signed: 11/10/2021 12:04 PM Workstation Name: [id number]
--- NOTE | 2021-11-10 13:10 | Progress Note ---
Subjective Interval history: PROGRESS NOTE S: POD #1 ; events of the past 24 hours reviewed, patient sustained cardiac arrest the morning hours of 11/10/2021. Successfully intubated and converted to normal sinus rhythm . O: Leg is equal length with the opposite lower extremity; mild swelling proximal left hip. Dressing on proximal wound shows no drainage and is intact. Distal dressing also shows nice occlusive bandage without significant drainage. A: 1. S/P IM nail stabilization left hip fracture; postop day #1 2. Status post cardiac arrest/CODE BLUE with resuscitation; being monitored in cardiac intensive care. P: All recovery efforts for left hip fracture will have to be put on hold until he is cleared from cardiovascular standpoint Objective Vital signs: Vital Signs - 12hr 11/10/21 11/10/21 11/10/21 03:06 05:42 05:50 Pulse Rate 85 63 Pulse Rate [ Anterior Bilateral Throughout] Respiratory 13 24 Rate Respiratory Rate [Anterior Bilateral Throughout] Blood Pressure 59/32 O2 Sat by Pulse 95 94 98 Oximetry 11/10/21 11/10/21 11/10/21 06:00 06:10 06:20 Pulse Rate 65 75 81 Pulse Rate [ Anterior Bilateral Throughout] Respiratory 24 24 24 Rate Respiratory Rate [Anterior Bilateral Throughout] Blood Pressure 73/37 O2 Sat by Pulse 64 L 100 98 Oximetry 11/10/21 11/10/21 11/10/21 06:30 06:36 06:40 Pulse Rate 78 78 75 Pulse Rate [ Anterior Bilateral Throughout] Respiratory 23 28 H Rate Respiratory Rate [Anterior Bilateral Throughout] Blood Pressure 81/39 120/49 147/58 O2 Sat by Pulse 99 100 100 Oximetry 11/10/21 11/10/21 11/10/21 06:48 08:19 12:30 Pulse Rate 93 H 104 H Pulse Rate [ 77 Anterior Bilateral Throughout] Respiratory Rate Respiratory 28 H Rate [Anterior Bilateral Throughout] Blood Pressure 119/65 109/77 O2 Sat by Pulse 100 100 Oximetry - Labs CBC & BMP: 11/10/21 06:12 11/10/21 09:25 Labs: Abnormal lab results 11/09/21 11/10/21 11/10/21 Range/Units 18:10 05:14 06:11 MCV (84-94) fl MCH (28-32) pg MCHC (32-34) % Seg Neuts % (Manual) (40.0-70.0) % ABG pH (7.350-7.450) pH Units ABG pO2 (80.0-90.0) mm Hg ABG O2 Saturation (95.0-99.0) % ABG Base Excess (-2.0-3.0) mmol/L Potassium 6.2 H* D (3.6-5.0) mmol/L Creatinine 1.4 H (0.8-1.3) mg/dL Glucose 113 H (75-100) mg/dL POC Glucose 111 H 119 H (70-105) mg/dL Lactic Acid (0.7-2.0) mmol/L Calcium 8.0 L (8.4-10.2) mg/dL 11/10/21 11/10/21 11/10/21 Range/Units 06:12 06:12 06:12 MCV 102 H (84-94) fl MCH 36 H (28-32) pg MCHC 35 H (32-34) % Seg Neuts % (Manual) 75.0 H (40.0-70.0) % ABG pH 7.092 L* (7.350-7.450) pH Units ABG pO2 237.5 H (80.0-90.0) mm Hg ABG O2 Saturation 99.2 H (95.0-99.0) % ABG Base Excess -10.7 L (-2.0-3.0) mmol/L Potassium (3.6-5.0) mmol/L Creatinine (0.8-1.3) mg/dL Glucose (75-100) mg/dL POC Glucose (70-105) mg/dL Lactic Acid 5.40 H* (0.7-2.0) mmol/L Calcium (8.4-10.2) mg/dL 11/10/21 11/10/21 11/10/21 Range/Units 08:03 09:25 11:00 MCV (84-94) fl MCH (28-32) pg MCHC (32-34) % Seg Neuts % (Manual) (40.0-70.0) % ABG pH 7.346 L (7.350-7.450) pH Units ABG pO2 366.8 H (80.0-90.0) mm Hg ABG O2 Saturation 99.5 H (95.0-99.0) % ABG Base Excess -2.4 L (-2.0-3.0) mmol/L Potassium 5.4 H (3.6-5.0) mmol/L Creatinine (0.8-1.3) mg/dL Glucose (75-100) mg/dL POC Glucose 131 H (70-105) mg/dL Lactic Acid (0.7-2.0) mmol/L Calcium 7.9 L (8.4-10.2) mg/dL 11/10/21 Range/Units 12:24 MCV (84-94) fl MCH (28-32) pg MCHC (32-34) % Seg Neuts % (Manual) (40.0-70.0) % ABG pH (7.350-7.450) pH Units ABG pO2 (80.0-90.0) mm Hg ABG O2 Saturation (95.0-99.0) % ABG Base Excess (-2.0-3.0) mmol/L Potassium (3.6-5.0) mmol/L Creatinine (0.8-1.3) mg/dL Glucose (75-100) mg/dL POC Glucose 215 H (70-105) mg/dL Lactic Acid (0.7-2.0) mmol/L Calcium (8.4-10.2) mg/dL
--- NOTE | 2021-11-10 13:46 | Vascular Lab Report ---
DUPLEX DOPPLER LOWER EXTREMITY VEINS, BILATERAL INDICATION / CLINICAL INFORMATION: dvt. TECHNIQUE: Duplex doppler imaging was performed through the veins of both lower extremities using sandhya ous compression and other maneuvers. COMPARISON: None available. FINDINGS: RIGHT COMMON FEMORAL VEIN: Negative. RIGHT FEMORAL VEIN: Negative. RIGHT POPLITEAL VEIN: Negative. RIGHT CALF VEINS: Peroneal veins are not well visualized. No evidence of thrombus. LEFT COMMON FEMORAL VEIN: Negative. LEFT FEMORAL VEIN: Negative. LEFT POPLITEAL VEIN: Negative. LEFT CALF VEINS: Peroneal veins are not well visualized. No evidence of thrombus. ADDITIONAL FINDINGS: None. IMPRESSION: 1. No sonographic evidence for DVT in either lower extremity. Scribed by: Mojgan Parra RDMS, JOSET, LARA Scribed: 11/10/2021 11:02 AM I have reviewed the images, agree with this report, and edited this report as needed. Signer Name: Crow Wilburn MD Signed: 11/10/2021 1:42 PM Workstation Name: [id number]
[2021-11-10 14:16] LABS: Calcium 6.7 mg/dL (8.4-10.2)
[2021-11-10] MEDS: SODIUM POLYSTYRENE 15 GM/60 ML ORAL LIQD PO SCH ×2 (14:59→15:29)
--- NOTE | 2021-11-10 14:59 | Consultation ---
History of Present Illness Consult date: 11/10/21 Requesting physician: LUCAS CURRY History of present illness: SUMMARY This is a 66-year-old male with past medical history of alcohol abuse, HTN, CAD s/p CABG 12 years ago, Head and Neck CA s/p removal 2years ago, and recent parox ysmal Afib was on Eliquis at home admitted for left femoral neck fracture due to fall at home s/p IM nail stabilization by Ortho on 11/09. Patient is now s/p PEA arrested with ROSC requiring ventilatory support. Unresponsive and on the vent, riding the set rate; not on any sedation. Pupils are irregular and nonreactive, with no cough/gag reflexes. Rhythmic twitching of patient right side of the face noted, s/p 1mg IV Ativan with no improvement. Seen and examined. Vitals, labs, medications, chart and imaging reviewed. Discussed with respiratory and nursing care staff. Discussed with the primary service Past History Past Medical History: hypertension, other (Alcohol abuse) Past Surgical History: No surgical history Social history: alcohol abuse, other (Every day smoker) Family history: no significant family history Medications and Allergies Allergies Allergy/AdvReac Type Severity Reaction Status Date / Time No Known Allergies Allergy Verified 11/09/21 14:10 Home Medications Medication Instructions Recorded Confirmed Last Taken Type Clopidogrel [Plavix] 75 mg PO DAILY 08/15/19 11/09/21 08/14/19 History 75 mg Fenofibrate Nanocrystallized 48 mg PO DAILY 08/15/19 11/09/21 08/23/19 History [Fenofibrate] 48 mg Niacin [Niacin ER] 500 mg PO DAILY 08/15/19 11/09/21 08/14/19 History 500 mg Tolterodine [Detrol LA] 4 mg PO DAILY 08/15/19 11/09/21 08/22/19 History 4 mg Apixaban [Eliquis] 5 mg PO BID 11/09/21 11/09/21 Unknown History AtorvaSTATin [Lipitor] 40 mg PO QHS 11/09/21 11/09/21 Unknown History Canagliflozin [Invokana] 300 mg PO QDAY 11/09/21 11/09/21 Unknown History Pilocarpine HCl 10 mg PO TID 11/09/21 11/09/21 Unknown History Active Meds: Active Medications Acetaminophen (Acetaminophen 325 Mg Tab) 650 mg PO Q4H PRN PRN Reason: Fever >101 Albuterol (Albuterol 2.5 Mg/3 Ml Nebu) 2.5 mg IH Q3HRT PRN PRN Reason: Shortness Of Breath Apixaban (Apixaban 2.5 Mg Tab) 2.5 mg PO Q12HR JANICE; Protocol Stop: 12/15/21 09:59 Last Admin: 11/10/21 11:45 Dose: Not Given Atorvastatin Calcium (Atorvastatin 40 Mg Tab) 40 mg PO QHS JANICE Last Admin: 11/09/21 23:24 Dose: 40 mg Calcium Carbonate/Glycine (Calcium Carbonate 1250 Mg Tab) 1,250 mg PO BID JANICE Carvedilol (Carvedilol 12.5 Mg Tab) 12.5 mg PO BID [facility] Last Admin: 11/10/21 11:45 Dose: Not Given Dextrose (Dextrose 10% *Hypoglycemia) 0 ml IV PRN PRN PRN Reason: Hypoglycemia Last Admin: 11/09/21 05:50 Dose: 50 ml Famotidine (Famotidine 20 Mg/2 Ml Inj) 20 mg IV BID [facility] Last Admin: 11/10/21 12:03 Dose: 20 mg Fenofibrate (Fenofibrate 48 Mg Tab) 48 mg PO DAILY [facility] Last Admin: 11/09/21 15:45 Dose: Not Given Hydralazine HCl (Hydralazine 20 Mg/1 Ml Inj) 10 mg IV Q6H PRN PRN Reason: SBP > 170; DBP > 100 Hydromorphone HCl (Hydromorphone 1 Mg/1 Ml Inj) 1 mg IV Q3H PRN PRN Reason: Pain , Severe (7-10) Last Admin: 11/09/21 17:55 Dose: 1 mg Lactated Ringer's (Lactated Ringers) 1,000 mls @ 100 mls/hr IV DIRECT JANICE Last Admin: 11/09/21 20:42 Dose: 100 mls/hr Epinephrine 8 mg/ Sodium (Chloride) 250 mls @ 3.75 mls/hr IV TITR JANICE; Protocol Last Titration: 11/10/21 11:47 Dose: 0 mcg/min, 0 mls/hr NORepinephrine/NS 8 MG-250 ML (Norepinephrine/Ns 8 Mg-250 Ml (Double Conc)) 8 mg in 250 mls @ 56.25 mls/hr IV TITRATE JANICE; Protocol Last Titration: 11/10/21 11:30 Dose: 0 mcg/min, 0 mls/hr Phenylephrine HCl 100 mg/ (Sodium Chloride) 100 mls @ 3 mls/hr IV TITR JANICE; Protocol Sodium Bicarbonate 150 meq/ (Sterile Water) 1,150 mls @ 100 mls/hr IV DIRECT JANICE Last Admin: 11/10/21 09:25 Dose: 100 mls/hr Insulin Human Lispro (Insulin Lispro 100 Unit/Ml) 0 unit SUB-Q Q6HR JANICE; Protocol Last Admin: 11/10/21 00:50 Dose: Not Given Lisinopril (Lisinopril 40 Mg Tab) 40 mg PO QHS [facility] Last Admin: 11/09/21 23:10 Dose: 40 mg Lorazepam (Lorazepam 2 Mg/Ml Vial) 2 mg IV Q1H PRN PRN Reason: CIWA-Ar 8-15 Last Admin: 11/10/21 02:20 Dose: 2 mg Morphine Sulfate (Morphine 2 Mg/1 Ml Inj) 2 mg IV Q4H PRN PRN Reason: Pain, Moderate (4-6) Last Admin: 11/08/21 06:02 Dose: 2 mg Niacin (Niacin Er 500 Mg Tab) 500 mg PO HS JANICE Ondansetron HCl (Ondansetron 4 Mg/2 Ml Inj) 4 mg IV Q8H PRN PRN Reason: Nausea And Vomiting Oxybutynin Chloride (Oxybutynin 5 Mg Tab) 5 mg PO TID [facility] Last Admin: 11/10/21 11:44 Dose: Not Given Sodium Chloride (Sodium Chloride 0.9% 10 Ml Flush Syringe) 10 ml IV BID [facility] Last Admin: 11/09/21 23:26 Dose: 10 ml Sodium Chloride (Sodium Chloride 0.9% 10 Ml Flush Syringe) 10 ml IV PRN PRN PRN Reason: LINE FLUSH Review of Systems ROS unobtainable: due to endotracheal tube, due to mental status Physical Examination Vital signs: Vital Signs Temp Pulse Resp BP Pulse Ox 98.6 F 78 18 175/95 99 11/07/21 04:28 11/07/21 04:28 11/07/21 04:28 11/07/21 04:28 11/07/21 04:28 General appearance: other (orally intuabted on MVS, riding set rate. No cough or gag reflex) Eyes: non-icteric, other (irregular non reactive) ENT: oropharynx moist Neck: no lymphadenopathy, no JVD Effort: normal Ascultation: Bilateral: diminished breath sounds Cardiovascular: regular rate and rhythm, other (S1,S2) Gastrointestinal: normoactive bowel sounds, soft, non-tender Integumentary: normal, other (Left lower extemity some swelling) Extremities: no cyanosis, pulses normal unable to assess other (unable to assess) Results - Laboratory Findings CBC and BMP: 11/11/21 04:32 11/11/21 04:32 ABG ABG pH 7.346 pH Units (7.350-7.450) L 11/10/21 11:00 ABG pCO2 43.7 mm Hg 11/10/21 11:00 ABG pO2 366.8 mm Hg (80.0-90.0) H 11/10/21 11:00 ABG O2 Saturation 99.5 % (95.0-99.0) H 11/10/21 11:00 PT/INR, D-dimer PT 14.2 Sec. (12.2-14.9) 11/09/21 15:51 INR 0.99 (0.87-1.13) 11/09/21 15:51 Abnormal lab findings: Abnormal Labs 11/07/21 11/07/21 11/07/21 04:46 04:46 04:46 Hgb 16.8 H Hct 50.1 H MCV 101 H MCH 34 H MCHC Plt Count Lymph % (Auto) 10.9 L [place] % (Auto) Lymph # (Auto) 0.9 L Seg Neutrophils % 81.9 H Seg Neuts % (Manual) ABG pH ABG pO2 ABG O2 Saturation ABG Base Excess Potassium BUN Creatinine Glucose 116 H POC Glucose Lactic Acid Calcium Plasma/Serum Alcohol 0.17 H 11/08/21 11/08/21 11/08/21 04:58 04:58 16:31 Hgb Hct 45.7 H MCV 102 H MCH 34 H MCHC Plt Count 124 L Lymph % (Auto) [place] % (Auto) 11.4 H Lymph # (Auto) 0.9 L Seg Neutrophils % Seg Neuts % (Manual) ABG pH ABG pO2 ABG O2 Saturation ABG Base Excess Potassium BUN Creatinine Glucose POC Glucose 126 H Lactic Acid Calcium 8.3 L Plasma/Serum Alcohol 11/08/21 11/09/21 11/09/21 23:19 06:39 06:39 Hgb Hct MCV 102 H MCH 34 H MCHC Plt Count 111 L Lymph % (Auto) 10.2 L [place] % (Auto) 11.0 H Lymph # (Auto) 0.5 L Seg Neutrophils % 76.2 H Seg Neuts % (Manual) ABG pH ABG pO2 ABG O2 Saturation ABG Base Excess Potassium BUN Creatinine Glucose POC Glucose 110 H Lactic Acid Calcium 8.0 L Plasma/Serum Alcohol 11/09/21 11/10/21 11/10/21 18:10 05:14 06:11 Hgb Hct MCV MCH MCHC Plt Count Lymph % (Auto) [place] % (Auto) Lymph # (Auto) Seg Neutrophils % Seg Neuts % (Manual) ABG pH ABG pO2 ABG O2 Saturation ABG Base Excess Potassium 6.2 H* D BUN Creatinine 1.4 H Glucose 113 H POC Glucose 111 H 119 H Lactic Acid Calcium 8.0 L Plasma/Serum Alcohol 11/10/21 11/10/21 11/10/21 06:12 06:12 06:12 Hgb Hct MCV 102 H MCH 36 H MCHC 35 H Plt Count Lymph % (Auto) [place] % (Auto) Lymph # (Auto) Seg Neutrophils % Seg Neuts % (Manual) 75.0 H ABG pH 7.092 L* ABG pO2 237.5 H ABG O2 Saturation 99.2 H ABG Base Excess -10.7 L Potassium BUN Creatinine Glucose POC Glucose Lactic Acid 5.40 H* Calcium Plasma/Serum Alcohol 11/10/21 11/10/21 11/10/21 08:03 09:25 11:00 Hgb Hct MCV MCH MCHC Plt Count Lymph % (Auto) [place] % (Auto) Lymph # (Auto) Seg Neutrophils % Seg Neuts % (Manual) ABG pH 7.346 L ABG pO2 366.8 H ABG O2 Saturation 99.5 H ABG Base Excess -2.4 L Potassium 5.4 H BUN Creatinine Glucose POC Glucose 131 H Lactic Acid Calcium 7.9 L Plasma/Serum Alcohol 11/10/21 11/10/21 11/10/21 12:19 12:19 12:24 Hgb Hct MCV MCH MCHC Plt Count Lymph % (Auto) [place] % (Auto) Lymph # (Auto) Seg Neutrophils % Seg Neuts % (Manual) ABG pH ABG pO2 ABG O2 Saturation ABG Base Excess Potassium 5.6 H BUN 26 H Creatinine 1.6 H Glucose 232 H POC Glucose 215 H Lactic Acid 3.20 H* Calcium 6.7 L D Plasma/Serum Alcohol - Diagnostic Findings Chest x-ray: image reviewed Assessment and Plan s/p PEA Arrest with ROSC Acute Hypoxemic Respiratory Failure -Intubated during code on 11/10 H/o CAD s/p CABG- 12 years ago Acute Metabolic Encephalopathy Myoclonic Jerks H/o Alcohol Abuse/ Alcohol Intoxication Acute Kidney Injury(LIANG) most likely ATN Hyperkalemia Closed Left Intertrochanteric Fracture S/p IM nail stabilization -Fall at home, imaging revealed left femoral neck fracture The patient has myoclonic jerks which is a poor prognostic factor post cardiac arrest. A CT head is being ordered and a CTA to r/o pulmonary embolism. Will hydrate adequately to prevent any worsening of renal function EEG pending They are both leaning towards comfort measures if the neuro-imaging sows severe anoxia. -continue to titrate supplemental oxygen to keep SPO2 88-90% -VAP bundle addressed, aspiration precautions, HOB >40 -CXR, ABG in am -trend temperature curve, trend WCC -continue bronchodilators with pulmonary hygiene per RT -Accuchecks with glycemic control per SSI (While critically ill target blood glucose of 140-180 mg/dL; avoid hypoglycemia) -Stress prophylaxis -VTE prophylaxis- SCDs, until after CT head to r/o any intra-cranial pathology -Get transthoracic echocardiogram to evaluate EF -Supportive transfusions, to keep HgB >7g/dL -Avoid nephrotoxins and dose all medications for GFR and CrCL -mobility, off loading and frequent turning to prevent pressure ulcer -Monitor hemodynamics closely - continue other care per attending / other consultants CONDITION: CRITICAL PROGNOSIS: GUARDED-GRAVE CODE STATUS: FULL CODE The high probability of a clinically significant, sudden or life-threatening deterioration of the [respiratory, cardiovascular, neurology, renal] system(s) required my full and direct attention, intervention and personal management. The aggregate critical care time was [35] minutes without overlap. Time includes spent on; [x] Data Review and interpretation [x] Patient assessment and monitoring of vital signs [x] Documentation [x] Medication orders and management
[2021-11-10] MEDS ORDERED: SODIUM CHLORIDE 0.9% 1000 ML 1,000 ML IV ONE (16:00)
[2021-11-10] MEDS ORDERED: SODIUM CHLORIDE 0.9% 1000 ML 1,000 ML IV SCH (17:00)
[2021-11-10] MEDS ORDERED: D5W/0.45% NACL 1,000 ML IV SCH (18:00)
--- NOTE | 2021-11-10 18:08 | Cat Scan Report ---
CTA CHEST WITH IV CONTRAST INDICATION: s/p cardiac arrest. TECHNIQUE: Axial CT images were obtained through the chest after injection of 100 cc Omnipaque 350 IV contrast. 3 plane MIP reconstructions were produced. All CT scans at this location are performed using CT dose reduction for ALARA by means of automated exposure control. COMPARISON: One view of the chest performed today. CTA chest performed on 08/20/2012. FINDINGS: PULMONARY ARTERIES: No pulmonary emboli. AORTA AND ARTERIES: No acute findings. The aorta is normal in caliber with moderate atherosclerosis s een along its course. There is mild great vessel atherosclerosis and moderate coronary atherosclerosi s. HEART: Dense calcification versus postoperative changes are seen along the mitral valve. No other sig nificant abnormality. LYMPH NODES:No significant adenopathy. TRACHEA AND BRONCHI: Expected positioning of an ET tube. No significant abnormality. LUNGS: There is a small left pneumothorax, most notable along the left lung base. There are trace ple ural effusions. Nonspecific mild groundglass opacities are seen dependently along the lower lobes, po ssibly representing atelectasis or sequela of aspiration. The lungs are otherwise clear. ADDITIONAL FINDINGS: None. UPPER ABDOMEN: No acute findings. An NG tube terminates along the gastric body. BONES: Multiple acute left rib fractures are seen involving the second through ninth ribs anteriorly. No other acute findings. IMPRESSION: 1. No CT evidence for pulmonary embolism. 2. Small left pneumothorax. 3. Multiple acute left rib fractures. 4. Possible sequela of aspiration versus atelectasis along the lower lobes with trace pleural effusio n. 5. Additional findings as above. IMPORTANT FINDING: Time of Communication (UNDERCOAT SPRAYER/CDT): 17:03 Licensed Practitioner Receiving Report: FABIOLA Marrero nurse Signer Name: Crow Wilburn MD Signed: 11/10/2021 6:03 PM Workstation Name: [email or web address]
--- NOTE | 2021-11-10 18:15 | Cat Scan Report ---
CT head/brain wo con INDICATION / CLINICAL INFORMATION: 66 years Male; s/p cardiac arrest. TECHNIQUE: Routine CT head without contrast. All CT scans at this location are performed using CT dos e reduction for ALARA by means of automated exposure control. COMPARISON: None. FINDINGS: BRAIN / INTRACRANIAL CONTENTS: The motion degrades the image quality. However, there is decreased att enuation projected within the basal ganglia which is nonspecific though fairly symmetric and may be s een with hypoxia and correlation would be needed given the history. Otherwise, there is concern for s ome loss of the bryan-white matter differentiation this may be related to the degree of motion and con tinued follow-up would be recommended at. Additionally, there may also be mild mass effect upon the l ateral ventricles which is somewhat small caliber given the age. There are cerebral sulci with CSF at tenuation near the vertex. There is no clear CT evidence of acute intracranial hemorrhage. ORBITS: No significant abnormality of visualized orbits. SINUSES / MASTOIDS: There is scattered opacification small air-fluid levels within the paranasal sinu ses related to the intubation. CRANIOCERVICAL JUNCTION: No significant abnormality. ADDITIONAL FINDINGS: None. IMPRESSION: 1. The study is limited by motion. However, there is symmetric decreased attenuation involving the [place] ganglia which may be seen with hypoxia and correlation be needed given the history. There is also suggestion of early a developing cerebral edema that this may be exacerbated by the degree of motion as described. There is no clear CT evidence of acute intracranial hemorrhage. Signer Name: Mani Fitzgerald MD Signed: 11/10/2021 6:11 PM Workstation Name: [id number]
[2021-11-10 21:00] LABS: Calcium 7.7 mg/dL (8.4-10.2)
[2021-11-10] MEDS ORDERED: NIACIN ER 500 MG TAB PO SCH (22:00)
[2021-11-10] MEDS: LISINOPRIL 40 MG TAB PO SCH (22:13)
--- NOTE | 2021-11-11 04:27 | XRay Report ---
CHEST 1 VIEW 11/11/2021 3:15 AM INDICATION / CLINICAL INFORMATION: Respiratory Failure/ Intubated. COMPARISON: CTA chest previous day. FINDINGS: SUPPORT DEVICES: None. HEART / MEDIASTINUM: No significant abnormality. LUNGS / PLEURA: Persistent left-sided pneumothorax. Mild increasing opacity left base. No significant pleural fluid. ADDITIONAL FINDINGS: No significant additional findings. IMPRESSION: 1. Persistent left-sided pneumothorax. 2. Mild increasing opacity left base possibly due to aspiration. Signer Name: Jovanny Carey MD Signed: 11/11/2021 4:22 AM Workstation Name: [id number]
[2021-11-11 04:53] LABS: ABG Methemoglobin 0.5 % (0.0-1.5); ABG Oxygen Saturation 98.8 % (95.0-99.0); ABG PCO2 36.4 mm Hg; ABG PH 7.419 pH Units (7.350-7.450); ABG PO2 144.3 mm Hg (80.0-90.0)
[2021-11-11 05:04] LABS: Hematocrit 39.8 % (35.5-45.6); Hemoglobin 14.1 gm/dl (11.8-15.2); Mean Corpuscular HGB Conc 35 % (32-34); Mean Corpuscular Volume 101 fl (84-94); Platelet Count 128 K/mm3 (140-440); Red Blood Count 3.95 M/mm3 (3.65-5.03); Red Cell Distribution Width 14.4 % (13.2-15.2)
[2021-11-11 05:19] LABS: Calcium 8.2 mg/dL (8.4-10.2)
[2021-11-11] MEDS: INSULIN LISPRO 100 UNIT/ML SUB-Q SCH ×3 (06:25→14:18)
--- NOTE | 2021-11-11 08:47 | Consultation ---
History of Present Illness - Reason for Consult Consult date: 11/11/21 fever Requesting physician: RHONDA RESENDIZ - History of Present Illness The patient is a 66-year-old male with alcohol abuse, hypertension, CAD status post CABG, head and neck cancer, paroxysmal atrial fibrillation on anticoagulation was admitted on 11/07/2021 following a fall and left hip pain, found to have left femoral neck fracture, was seen by orthopedics and on 11/09/2021 underwent intramedullary nail stabilization. On 11/10/2021 patient was found to be pulseless and unresponsive, [facility] was called and underwent ACLS protocol, had return of spontaneous circulation. Then he started having fevers up to 103 F, infectious diseases was consulted for additional evaluation. He h as been weaned off pressors. Initial chest x-ray did not reveal pneumonia. DVT scan was negative. CT had suggested early developing cerebral edema. CTA chest was negative for pulmonary embolism, showed a small left pneumothorax and multiple acute left rib fractures, possible sequelae of aspiration. Chest x-ray today reveals persistent left-sided pneumothorax, mild possible aspiration pneumonia. Review of Systems: Limited due to vent Past History Past Medical History: hypertension, other (Alcohol abuse) Past Surgical History: No surgical history Social history: alcohol abuse, other (Every day smoker) Family history: no significant family history (cannot be obtained, patient on the vent.) Medications and Allergies Allergies Allergy/AdvReac Type Severity Reaction Status Date / Time No Known Allergies Allergy Verified 11/09/21 14:10 Home Medications Medication Instructions Recorded Confirmed Last Taken Type Clopidogrel [Plavix] 75 mg PO DAILY 08/15/19 11/09/21 08/14/19 History 75 mg Fenofibrate Nanocrystallized 48 mg PO DAILY 08/15/19 11/09/21 08/23/19 History [Fenofibrate] 48 mg Niacin [Niacin ER] 500 mg PO DAILY 08/15/19 11/09/21 08/14/19 History 500 mg Tolterodine [Detrol LA] 4 mg PO DAILY 08/15/19 11/09/21 08/22/19 History 4 mg Apixaban [Eliquis] 5 mg PO BID 11/09/21 11/09/21 Unknown History AtorvaSTATin [Lipitor] 40 mg PO QHS 11/09/21 11/09/21 Unknown History Canagliflozin [Invokana] 300 mg PO QDAY 11/09/21 11/09/21 Unknown History Pilocarpine HCl 10 mg PO TID 11/09/21 11/09/21 Unknown History Active Meds: Active Medications Acetaminophen (Acetaminophen 325 Mg Tab) 650 mg PO Q4H PRN PRN Reason: Fever >101 Last Admin: 11/10/21 20:05 Dose: 650 mg Albuterol (Albuterol 2.5 Mg/3 Ml Nebu) 2.5 mg IH Q3HRT PRN PRN Reason: Shortness Of Breath Atorvastatin Calcium (Atorvastatin 40 Mg Tab) 40 mg PO QHS [facility] Last Admin: 11/10/21 22:12 Dose: Not Given Calcium Carbonate/Glycine (Calcium Carbonate 1250 Mg Tab) 1,250 mg PO BID [facility] Last Admin: 11/10/21 22:13 Dose: Not Given Carvedilol (Carvedilol 12.5 Mg Tab) 12.5 mg PO BID [facility] Last Admin: 11/10/21 22:12 Dose: Not Given Dextrose (Dextrose 10% *Hypoglycemia) 0 ml IV PRN PRN PRN Reason: Hypoglycemia Last Admin: 11/09/21 05:50 Dose: 50 ml Famotidine (Famotidine 20 Mg/2 Ml Inj) 20 mg IV BID [facility] Last Admin: 11/10/21 22:13 Dose: 20 mg Fenofibrate (Fenofibrate 48 Mg Tab) 48 mg PO DAILY [facility] Last Admin: 11/10/21 10:00 Dose: Not Given Hydralazine HCl (Hydralazine 20 Mg/1 Ml Inj) 10 mg IV Q6H PRN PRN Reason: SBP > 170; DBP > 100 Hydromorphone HCl (Hydromorphone 1 Mg/1 Ml Inj) 1 mg IV Q3H PRN PRN Reason: Pain , Severe (7-10) Last Admin: 11/09/21 17:55 Dose: 1 mg Lactated Ringer's (Lactated Ringers) 1,000 mls @ 100 mls/hr IV DIRECT [facility] Last Admin: 11/09/21 20:42 Dose: 100 mls/hr Epinephrine 8 mg/ Sodium (Chloride) 250 mls @ 3.75 mls/hr IV TITR [facility]; Protocol Last Titration: 11/10/21 11:47 Dose: 0 mcg/min, 0 mls/hr NORepinephrine/NS 8 MG-250 ML (Norepinephrine/Ns 8 Mg-250 Ml (Double Conc)) 8 mg in 250 mls @ 56.25 mls/hr IV TITRATE [facility]; Protocol Last Titration: 11/10/21 11:30 Dose: 0 mcg/min, 0 mls/hr Phenylephrine HCl 100 mg/ (Sodium Chloride) 100 mls @ 3 mls/hr IV TITR [facility]; Protocol Dextrose/Sodium Chloride (D5/0.45ns) 1,000 mls @ 50 mls/hr IV DIRECT [facility] Stop: 11/11/21 18:00 Last Admin: 11/10/21 18:07 Dose: 50 mls/hr Insulin Human Lispro (Insulin Lispro 100 Unit/Ml) 0 unit SUB-Q Q6HR [facility]; Protocol Last Admin: 11/11/21 06:25 Dose: 2 unit Lisinopril (Lisinopril 40 Mg Tab) 40 mg PO QHS [facility] Last Admin: 11/10/21 22:13 Dose: Not Given Lorazepam (Lorazepam 2 Mg/Ml Vial) 2 mg IV Q1H PRN PRN Reason: CIWA-Ar 8-15 Last Admin: 11/10/21 02:20 Dose: 2 mg Morphine Sulfate (Morphine 2 Mg/1 Ml Inj) 2 mg IV Q4H PRN PRN Reason: Pain, Moderate (4-6) Last Admin: 11/08/21 06:02 Dose: 2 mg Niacin (Niacin Er 500 Mg Tab) 500 mg PO HS [facility] Last Admin: 11/10/21 22:12 Dose: Not Given Ondansetron HCl (Ondansetron 4 Mg/2 Ml Inj) 4 mg IV Q8H PRN PRN Reason: Nausea And Vomiting Oxybutynin Chloride (Oxybutynin 5 Mg Tab) 5 mg PO TID [facility] Last Admin: 11/10/21 20:07 Dose: 5 mg Sodium Chloride (Sodium Chloride 0.9% 10 Ml Flush Syringe) 10 ml IV BID [facility] Last Admin: 11/10/21 22:13 Dose: 10 ml Sodium Chloride (Sodium Chloride 0.9% 10 Ml Flush Syringe) 10 ml IV PRN PRN PRN Reason: LINE FLUSH Physical Examination - Physical Exam Narrative exam: Physical Exam: Constitutional: unresponsive, intubated, on the vent Head, Ears, Nose: Normocephalic, atraumatic. External ears, nose normal Eyes: Conjunctivae/corneas clear. No icterus. No ptosis. Neck: intubated Oral: intubated Cardiovascular: S1, S2 + Respiratory: AE fair bilaterally and equal GI: Soft, bowel sounds + Musculoskeletal: No pedal edema, no cyanosis. L hip dressing + Skin: No rash or abscess Hem/Lymphatic: No palpable cervical or supraclavicular nodes. No lymphangitis Psych: no agitation Neurological: unresponsive, intubated, on the vent, exam limited - Constitutional Vitals: Vital Signs Temp Pulse Resp BP Pulse Ox 98.2 F 110 H 28 H 134/75 100 11/11/21 08:00 11/11/21 06:00 11/11/21 06:00 11/11/21 06:00 11/11/21 06:00 Temperature -Last 24 Hours Temperature 98.2 F Temperature 102 F Temperature 103.4 F Temperature 101.6 F Temperature 99.3 F Temperature 99.5 F Results - Labs CBC & Chem 7: 11/11/21 04:32 11/11/21 04:32 Labs: Abnormal lab results 11/10/21 11/10/21 11/10/21 Range/Units 09:25 11:00 12:19 MCV (84-94) fl MCH (28-32) pg MCHC (32-34) % Plt Count (140-440) K/mm3 ABG pH 7.346 L (7.350-7.450) pH Units ABG pO2 366.8 H (80.0-90.0) mm Hg ABG O2 Saturation 99.5 H (95.0-99.0) % ABG Base Excess -2.4 L (-2.0-3.0) mmol/L Potassium 5.4 H 5.6 H (3.6-5.0) mmol/L BUN 26 H (9-20) mg/dL Creatinine 1.6 H (0.8-1.3) mg/dL Glucose 232 H (75-100) mg/dL POC Glucose (70-105) mg/dL Lactic Acid (0.7-2.0) mmol/L Calcium 7.9 L 6.7 L D (8.4-10.2) mg/dL 11/10/21 11/10/21 11/10/21 Range/Units 12:19 12:24 18:37 MCV (84-94) fl MCH (28-32) pg MCHC (32-34) % Plt Count (140-440) K/mm3 ABG pH (7.350-7.450) pH Units ABG pO2 (80.0-90.0) mm Hg ABG O2 Saturation (95.0-99.0) % ABG Base Excess (-2.0-3.0) mmol/L Potassium (3.6-5.0) mmol/L BUN (9-20) mg/dL Creatinine (0.8-1.3) mg/dL Glucose (75-100) mg/dL POC Glucose 215 H 130 H (70-105) mg/dL Lactic Acid 3.20 H* (0.7-2.0) mmol/L Calcium (8.4-10.2) mg/dL 11/10/21 11/10/21 11/11/21 Range/Units 19:45 22:00 04:32 MCV 101 H (84-94) fl MCH 36 H (28-32) pg MCHC 35 H (32-34) % Plt Count 128 L (140-440) K/mm3 ABG pH (7.350-7.450) pH Units ABG pO2 (80.0-90.0) mm Hg ABG O2 Saturation (95.0-99.0) % ABG Base Excess (-2.0-3.0) mmol/L Potassium (3.6-5.0) mmol/L BUN 34 H (9-20) mg/dL Creatinine 2.5 H D (0.8-1.3) mg/dL Glucose 137 H (75-100) mg/dL POC Glucose 146 H (70-105) mg/dL Lactic Acid (0.7-2.0) mmol/L Calcium 7.7 L (8.4-10.2) mg/dL 11/11/21 11/11/21 11/11/21 Range/Units 04:32 04:32 04:40 MCV (84-94) fl MCH (28-32) pg MCHC (32-34) % Plt Count (140-440) K/mm3 ABG pH (7.350-7.450) pH Units ABG pO2 144.3 H (80.0-90.0) mm Hg ABG O2 Saturation (95.0-99.0) % ABG Base Excess (-2.0-3.0) mmol/L Potassium (3.6-5.0) mmol/L BUN 42 H (9-20) mg/dL Creatinine 3.3 H (0.8-1.3) mg/dL Glucose 171 H (75-100) mg/dL POC Glucose (70-105) mg/dL Lactic Acid 2.10 H* (0.7-2.0) mmol/L Calcium 8.2 L (8.4-10.2) mg/dL - Imaging and Cardiology Chest x-ray: report reviewed, image reviewed (L pneumothorax, dont' see much of an infiltrate) Assessment and Plan Cultures: 11/10/2021 blood culture: In process 11/10/2021 tracheal aspirate culture: In process A/P: 66-year-old male with alcohol abuse, hypertension, CAD status post CABG, head and neck cancer, paroxysmal atrial fibrillation on anticoagulation was admitted on 11/07/2021 following a fall and left hip pain: #Shock, ?septic: following cardiac arrest. Off pressors now. #Status post cardiac arrest status post CPR/ACLS on 11/10/2021 with ROSC #Aspiration pneumonia, L pneumothorax #Left femoral neck fracture, was seen by orthopedics and on 11/09/2021 underwent intramedullary nail stabilization #Acute kidney injury: Renally adjust antibiotics #Acute encephalopathy: Concern for hypoxic encephalopathy. CT with early cerebral edema. Recs: Empiric IV cefepime, vancomycin, renally adjusted Follow-up blood and tracheal aspirate cultures Monitor fever, WBC count Check CMP in a.m. ?central fevers Erasmo Everett MD, FACP, [facility] O: [phone] F: [phone] C: [phone]
[2021-11-11] MEDS ORDERED: VANCOMYCIN PHARMACY TO DOSE IV SCH (09:00)
--- NOTE | 2021-11-11 09:20 | Consultation ---
History of Present Illness - Reason for Consult Consult date: 11/11/21 acute renal failure - History of Present Illness History obtained from medical records as patient is intubated Patient is a 66-year-old male with CAD s/p CABG 12 years ago, HTN, alcohol abuse, Head and Neck CA s/p removal 2years ago, and recent paroxysmal Afib on chronic anticoagulation admitted for surgical management of left femoral neck fracture following fall at home He is s/p IM nail stabilization by ortho on 11/09. Code blue called on November 10. Patient was in PEA arrest Presently, he is on mechanical ventilation, unresponsive w/o sedation Nephrology consultation requested due to worsening renal function Past History Past Medical History: hypertension, other (Alcohol abuse) Past Surgical History: No surgical history Social history: alcohol abuse, other (Every day smoker) Family history: no significant family history Medications and Allergies Allergies Allergy/AdvReac Type Severity Reaction Status Date / Time No Known Allergies Allergy Verified 11/09/21 14:10 Home Medications Medication Instructions Recorded Confirmed Last Taken Type Clopidogrel [Plavix] 75 mg PO DAILY 08/15/19 11/09/21 08/14/19 History 75 mg Fenofibrate Nanocrystallized 48 mg PO DAILY 08/15/19 11/09/21 08/23/19 History [Fenofibrate] 48 mg Niacin [Niacin ER] 500 mg PO DAILY 08/15/19 11/09/21 08/14/19 History 500 mg Tolterodine [Detrol LA] 4 mg PO DAILY 08/15/19 11/09/21 08/22/19 History 4 mg Apixaban [Eliquis] 5 mg PO BID 11/09/21 11/09/21 Unknown History AtorvaSTATin [Lipitor] 40 mg PO QHS 11/09/21 11/09/21 Unknown History Canagliflozin [Invokana] 300 mg PO QDAY 11/09/21 11/09/21 Unknown History Pilocarpine HCl 10 mg PO TID 11/09/21 11/09/21 Unknown History Active Meds: Active Medications Acetaminophen (Acetaminophen 325 Mg Tab) 650 mg PO Q4H PRN PRN Reason: Fever >101 Last Admin: 11/10/21 20:05 Dose: 650 mg Albuterol (Albuterol 2.5 Mg/3 Ml Nebu) 2.5 mg IH Q3HRT PRN PRN Reason: Shortness Of Breath Atorvastatin Calcium (Atorvastatin 40 Mg Tab) 40 mg PO QHS [facility] Last Admin: 11/10/21 22:12 Dose: Not Given Calcium Carbonate/Glycine (Calcium Carbonate 1250 Mg Tab) 1,250 mg PO BID [facility] Last Admin: 11/10/21 22:13 Dose: Not Given Carvedilol (Carvedilol 12.5 Mg Tab) 12.5 mg PO BID [facility] Last Admin: 11/10/21 22:12 Dose: Not Given Dextrose (Dextrose 10% *Hypoglycemia) 0 ml IV PRN PRN PRN Reason: Hypoglycemia Last Admin: 11/09/21 05:50 Dose: 50 ml Famotidine (Famotidine 20 Mg/2 Ml Inj) 20 mg IV BID [facility] Last Admin: 11/10/21 22:13 Dose: 20 mg Fenofibrate (Fenofibrate 48 Mg Tab) 48 mg PO DAILY [facility] Last Admin: 11/10/21 10:00 Dose: Not Given Hydralazine HCl (Hydralazine 20 Mg/1 Ml Inj) 10 mg IV Q6H PRN PRN Reason: SBP > 170; DBP > 100 Hydromorphone HCl (Hydromorphone 1 Mg/1 Ml Inj) 1 mg IV Q3H PRN PRN Reason: Pain , Severe (7-10) Last Admin: 11/09/21 17:55 Dose: 1 mg Lactated Ringer's (Lactated Ringers) 1,000 mls @ 100 mls/hr IV DIRECT [facility] Last Admin: 11/09/21 20:42 Dose: 100 mls/hr Epinephrine 8 mg/ Sodium (Chloride) 250 mls @ 3.75 mls/hr IV TITR [facility]; Protocol Last Titration: 11/10/21 11:47 Dose: 0 mcg/min, 0 mls/hr NORepinephrine/NS 8 MG-250 ML (Norepinephrine/Ns 8 Mg-250 Ml (Double Conc)) 8 mg in 250 mls @ 56.25 mls/hr IV TITRATE [facility]; Protocol Last Titration: 11/10/21 11:30 Dose: 0 mcg/min, 0 mls/hr Phenylephrine HCl 100 mg/ (Sodium Chloride) 100 mls @ 3 mls/hr IV TITR [facility]; Protocol Dextrose/Sodium Chloride (D5/0.45ns) 1,000 mls @ 50 mls/hr IV DIRECT [facility] Stop: 11/11/21 18:00 Last Admin: 11/10/21 18:07 Dose: 50 mls/hr Cefepime HCl (Cefepime/Ns 1 Gm/100 Ml) 1 gm in 100 mls @ 200 mls/hr IV Q12H [facility]; Protocol Vancomycin HCl 1,250 mg/ (Sodium Chloride) 275 mls @ 333 mls/hr IV ONCE@0930 [facility]; Protocol Stop: 11/11/21 12:30 Insulin Human Lispro (Insulin Lispro 100 Unit/Ml) 0 unit SUB-Q Q6HR [facility]; Protocol Last Admin: 11/11/21 06:25 Dose: 2 unit Lisinopril (Lisinopril 40 Mg Tab) 40 mg PO QHS [facility] Last Admin: 11/10/21 22:13 Dose: Not Given Lorazepam (Lorazepam 2 Mg/Ml Vial) 2 mg IV Q1H PRN PRN Reason: CIWA-Ar 8-15 Last Admin: 11/10/21 02:20 Dose: 2 mg Morphine Sulfate (Morphine 2 Mg/1 Ml Inj) 2 mg IV Q4H PRN PRN Reason: Pain, Moderate (4-6) Last Admin: 11/08/21 06:02 Dose: 2 mg Niacin (Niacin Er 500 Mg Tab) 500 mg PO HS [facility] Last Admin: 11/10/21 22:12 Dose: Not Given Ondansetron HCl (Ondansetron 4 Mg/2 Ml Inj) 4 mg IV Q8H PRN PRN Reason: Nausea And Vomiting Oxybutynin Chloride (Oxybutynin 5 Mg Tab) 5 mg PO TID [facility] Last Admin: 11/10/21 20:07 Dose: 5 mg Sodium Chloride (Sodium Chloride 0.9% 10 Ml Flush Syringe) 10 ml IV BID [facility] Last Admin: 11/10/21 22:13 Dose: 10 ml Sodium Chloride (Sodium Chloride 0.9% 10 Ml Flush Syringe) 10 ml IV PRN PRN PRN Reason: LINE FLUSH Review of Systems ROS unobtainable: due to endotracheal tube Exam - Vital Signs Vital signs: Vital Signs Temp Pulse Resp BP Pulse Ox 98.6 F 78 18 175/95 99 11/07/21 04:28 11/07/21 04:28 11/07/21 04:28 11/07/21 04:28 11/07/21 04:28 - Physical Exam Narrative exam: ACVC TV 500, Rate 28, FiO2 40, PEEP 8; Tmax 103.4 - General Appearance General appearance: well-developed, well-nourished, intubated EENT: ATNC, other (ETT in place) Respiratory: Clear to Ascultation Heart: regular, S1S2 Gastrointestinal: Present: hypoactive bowel sounds. Absent: distended Integumentary: no rash, warm and dry Musculoskeletal: Present: other (no edema) Results - Lab Results 11/11/21 04:32 11/11/21 04:32 Most recent lab results ABG pH 7.419 pH Units (7.350-7.450) 11/11/21 04:40 ABG pCO2 36.4 mm Hg 11/11/21 04:40 ABG pO2 144.3 mm Hg (80.0-90.0) H 11/11/21 04:40 ABG HCO3 23.0 mmol/L (20.0-26.0) 11/11/21 04:40 ABG O2 Saturation 98.8 % (95.0-99.0) 11/11/21 04:40 Calcium 8.2 mg/dL (8.4-10.2) L 11/11/21 04:32 Phosphorus 3.10 mg/dL (2.5-4.5) 11/11/21 04:32 Magnesium 2.20 mg/dL (1.7-2.3) 11/11/21 04:32 Assessment and Plan Impression: * Acute kidney injury secondary to ischemic ATN * Cardiac arrest * Acute hypoxic respiratory failure * Closed left intertrochanteric fracture s/p IM nail stabilization * Atrial fibrillation * Hx of CAD s/p CABG Plan: * No acute indication for renal replacement therapy at this time. Renal pro gnosis is guarded as patient with ischemic ATN following cardiac arrest. * IVF for hydration * Vent management per pulm/critical care * Pressors prn to maintain MAP >65 - currently off pressors * Abx per primary team * Medical management of electrolytes * Dose medications for renal function * Strict I/O * Avoid potential nephrotoxins
[2021-11-11] MEDS ORDERED: VANCOMYCIN 1,250 MG in SODIUM CHLORIDE 0.9% 250ML 250 ML IV SCH (09:30)
[2021-11-11] MEDS: FENOFIBRATE 48 MG TAB PO SCH (09:38)
[2021-11-11] MEDS: OXYBUTYNIN 5 MG TAB PO SCH (09:39)
[2021-11-11] MEDS: CALCIUM CARBONATE 1250 MG TAB PO SCH (09:39)
[2021-11-11] MEDS: carvediloL 12.5 MG TAB PO SCH (09:41)
[2021-11-11] MEDS ORDERED: FAMOTIDINE 20 MG/2 ML INJ IV SCH (10:00)
[2021-11-11] MEDS ORDERED: CEFEPIME/NS 1 GM/100 ML 1 GM/100 ML BAG IV SCH (10:00)
--- NOTE | 2021-11-11 10:15 | Progress Note ---
<RHONDA RESENDIZ - Last Filed: 11/11/21 18:44> Assessment and Plan Assessment and plan: This is a 66-year-old male with past medical history of alcohol abuse, HTN, CAD s/p CABG 12 years ago, Head and Neck CA s/p removal 2years ago, and recent paroxysmaln Afib was on Eliquis at home admitted for left femoral neck fracture due to fall at home s/p IM nail stabilization by Ortho on 11/09. Patient is now s/p PEA arrested with ROSC requiring ventilatory support. ICU Course to Date: 11/10: Unresponsive and on the vent, not on any sedations. Pupils are irregular and nonreactive, with no cough/gag reflexes. Rhythmic twitching of patient right side of the face noted, s/p 1mg IV Ativan with no improvement. Will check an EEG and Neurology consulted. Patient is on 80% Fio2, peep of 8 this am, SPO2 at 100%,orders placed for repeat ABG. Titrate Fio2 as tolerated for SPO2 above 95%. Will also check 2D echo and bilateral lower extremities to r/o DVT. Patient is also on low dose Lephoved gtt, continue to titrate for MAP above 65. Hyperkalemia also noted from this am, treated per protocol, repeat lab ordered 4hrs post treatment. Renal function also worsen post coded, continue IVF rehydration, consider Nephrology consult if worsen. Continue to monitor renal function and electrolytes. trend BMP and lactic acid. 11/11: Remains on the vent and unresponsive. CTA neg PE and BLE doppler with no evidence of DVT. CT head also noted, Teleneuro consulted and Neuro Surgery also consulted for further recommendations. MRI brain ordered. Febrile overnight, wbcs remains normal, ID was also consulted. Renal function worsen, continue IV hydration, Nephrology is also following. Attending discussed CT head result and current POC with patient's son and daughter at the bedside. All questions and concerns were voiced at this time. Assessment and Plan #s/p PEA Arrest with ROSC #H/o CAD s/p CABG- 12 years ago - Code blue on 11/10- PEA arrested with ROSC - SR to ST on the monitor this am - 12 lead EKG noted, [place] appreciated- probably due to high K - Off pressors this am - Continue rehydration with cont. IVF - Continue blood pressure monitor per protocol - Titrate pressors for MAP above 65 - 2D Echo pending - Bilateral doppler neg. DVT #Acute Hypoxemic Respiratory Failure - Intubated during code on 11/10 - Vent setting: PRVC-40%,8,28,500 - This AM ABG noted - CCM consulted, appreciate recommendations - CTA chest- negative PE - VAP bundle addressed - Aspiration precaution HOB above 30 - Daily ABG and CXR - Continue SPO2 monitoring for SPO2 goal above 92% #Acute Metabolic Encephalopathy #Myoclonic Jerks #H/o Alcohol Abuse/ Alcohol Intoxication - Fall at home while drinking. Presented intoxicated - Was on CIWA protocol on the floor - S/p PEA arrest- unresponsive, not on any sedation - Rhythmic twitching of right side of the face noted- Unresponsive to IV Ativan - EEG pending - CT head/brain noted - Neurology consulted pending - Teleneuro and NeuroSurgery consulted for further recommendation - MRI Brain ordered - PRN Ativan for seizures like activities #Fevers #LLL Pneumonia #Possible Aspiration - Now with high fevers, TMAX 103.4 - This am CXR with increase opacity at the left base probably due to aspiration - Blood cultures and Sputum culture with NGTD - WBCs wnl - ID consulted - Continue to F/U on culture date - Daily CBC monitor #Acute Kidney Injury(LIANG) most likely ATN #Hyperkalemia - due to hypoperfusion/hypotension - Scr. jumped to 1.4 this am - high K treated per protocol - Repeat BMP 4hrs post treatment - Continue rehydration with cont. IVF - Strict intake and output - Avoid nephrotoxic medications; Renally dose medications - Monitor and replace electrolytes as needed - Consider Nephrology consult if worsen #Left Pneumothorax probably 2/2 #Multiple Left Ribs fractures - Noted from recent imagings - Patient is stable, on low vent setting - Will continue to monitor for now #Closed Left Intertrochanteric Fracture #S/p IM nail stabilization - Fall at home, imaging revealed left femoral neck fracture - Orthopedic surgery consulted; appreciate recs - 11/09 s/p IM nail stabilization of the left femoral neck fracture by Ortho - Left hip dressing noted with no complications - Incision management per Ortho - Heparin SubQ added for VTE proph #GI/DVT prophylaxis - PPI- Pepcid - Heparin SubQ - SCDs to bilateral lower extremities while in bed The high probability of a clinically significant, sudden or life threatening deterioration of the [multiple] system(s) required my full and direct attention, intervention and personal management. The aggregate critical care time was [60] minutes. This time is in addition to time spent performing reported procedures but includes the following: [x] Data Review and interpretation [x] Patient assessment and monitoring of vital signs [x] Documentation [x] Medication orders and management Disposition Plan: ICU Total Time Spent with Patient (Minutes): 60 History Interval history: Patient seen and examined at the bedside. Intubated, remains unresponsive, not on any sedation. Pupils are irregular and nonreactive, with no gag/cough. Febrile overnight, TMAX 103.4. Off pressors this am. Hospitalist Physical - Constitutional Vitals: Temp Pulse Resp BP Pulse Ox 98.2 F 98 H 27 H 137/72 97 11/11/21 08:00 11/11/21 10:00 11/11/21 10:00 11/11/21 10:00 11/11/21 10:00 General appearance: Present: no acute distress, well-nourished, obese, other (Intubated and unresponsive) - EENT Eyes: Present: irregular pupil - Respiratory Respiratory effort: normal Respiratory: bilateral: rhonchi - Cardiovascular Rhythm: regular Heart Sounds: Present: S1 & S2 - Extremities Extremities: no ischemia, pulses intact, pulses symmetrical Extremity abnormal: edema - Peripheral Assessment Generalized Edema Type: Non-pitting Edema Degree: 2+ Capillary Refill: < 3 seconds Skin Temperature: Warm Peripheral Pulses: within normal limits - Abdominal General gastrointestinal: soft, non-distended, hypoactive bowel sounds - Integumentary Integumentary: Present: warm, dry - Psychiatric Psychiatric: other (Intubated and unresponsive) - Neurologic Neurologic: other (Intubated and unresponsive) - Allied Health Allied health notes reviewed: nursing Results - Labs CBC & Chem 7: 11/11/21 04:32 11/11/21 04:32 Labs: Laboratory Last Values WBC 8.8 K/mm3 (4.5-11.0) 11/11/21 04:32 RBC 3.95 M/mm3 (3.65-5.03) 11/11/21 04:32 Hgb 14.1 gm/dl (11.8-15.2) 11/11/21 04:32 Hct 39.8 % (35.5-45.6) 11/11/21 04:32 MCV 101 fl (84-94) H 11/11/21 04:32 MCH 36 pg (28-32) H 11/11/21 04:32 MCHC 35 % (32-34) H 11/11/21 04:32 RDW 14.4 % (13.2-15.2) 11/11/21 04:32 Plt Count 128 K/mm3 (140-440) L 11/11/21 04:32 Lymph % (Auto) 10.2 % (13.4-35.0) L 11/09/21 06:39 [place] % (Auto) 11.0 % (0.0-7.3) H 11/09/21 06:39 Eos % (Auto) 2.1 % (0.0-4.3) 11/09/21 06:39 Baso % (Auto) 0.5 % (0.0-1.8) 11/09/21 06:39 Lymph # (Auto) 0.5 K/mm3 (1.2-5.4) L 11/09/21 06:39 [place] # (Auto) 0.5 K/mm3 (0.0-0.8) 11/09/21 06:39 Eos # (Auto) 0.1 K/mm3 (0.0-0.4) 11/09/21 06:39 Baso # (Auto) 0.0 K/mm3 (0.0-0.1) 11/09/21 06:39 Add Manual Diff Complete 11/10/21 06:12 Total Counted 100 11/10/21 06:12 Seg Neutrophils % 76.2 % (40.0-70.0) H 11/09/21 06:39 Seg Neuts % (Manual) 75.0 % (40.0-70.0) H 11/10/21 06:12 Band Neutrophils % 0 % 11/10/21 06:12 Lymphocytes % (Manual) 18.0 % (13.4-35.0) 11/10/21 06:12 Reactive Lymphs % (Man) 0 % 11/10/21 06:12 Monocytes % (Manual) 6.0 % (0.0-7.3) 11/10/21 06:12 Eosinophils % (Manual) 0 % (0.0-4.3) 11/10/21 06:12 Basophils % (Manual) 0 % (0.0-1.8) 11/10/21 06:12 Metamyelocytes % 1.0 % 11/10/21 06:12 Myelocytes % 0 % 11/10/21 06:12 Promyelocytes % 0 % 11/10/21 06:12 Blast Cells % 0 % 11/10/21 06:12 Nucleated RBC % Not Reportable 11/10/21 06:12 Seg Neutrophils # 3.7 K/mm3 (1.8-7.7) 11/09/21 06:39 Seg Neutrophils # Man 7.1 K/mm3 (1.8-7.7) 11/10/21 06:12 Band Neutrophils # 0.0 K/mm3 11/10/21 06:12 Lymphocytes # (Manual) 1.7 K/mm3 (1.2-5.4) 11/10/21 06:12 Abs React Lymphs (Man) 0.0 K/mm3 11/10/21 06:12 Monocytes # (Manual) 0.6 K/mm3 (0.0-0.8) 11/10/21 06:12 Eosinophils # (Manual) 0.0 K/mm3 (0.0-0.4) 11/10/21 06:12 Basophils # (Manual) 0.0 K/mm3 (0.0-0.1) 11/10/21 06:12 Metamyelocytes # 0.1 K/mm3 11/10/21 06:12 Myelocytes # 0.0 K/mm3 11/10/21 06:12 Promyelocytes # 0.0 K/mm3 11/10/21 06:12 Blast Cells # 0.0 K/mm3 11/10/21 06:12 WBC Morphology Not Reportable 11/10/21 06:12 Hypersegmented Neuts Not Reportable 11/10/21 06:12 Hyposegmented Neuts Not Reportable 11/10/21 06:12 Hypogranular Neuts Not Reportable 11/10/21 06:12 Smudge Cells Not Reportable 11/10/21 06:12 Toxic Granulation Not Reportable 11/10/21 06:12 Toxic Vacuolation Not Reportable 11/10/21 06:12 Dohle Bodies Not Reportable 11/10/21 06:12 Pelger-Huet Anomaly Not Reportable 11/10/21 06:12 Dayday Rods Not Reportable 11/10/21 06:12 Platelet Estimate Consistent w auto 11/10/21 06:12 Clumped Platelets Not Reportable 11/10/21 06:12 Plt Clumps, EDTA Not Reportable 11/10/21 06:12 Large Platelets Few 11/10/21 06:12 Giant Platelets Not Reportable 11/10/21 06:12 Platelet Satelliting Not Reportable 11/10/21 06:12 Plt Morphology Comment Not Reportable 11/10/21 06:12 RBC Morphology Normal 11/10/21 06:12 Dimorphic RBCs Not Reportable 11/10/21 06:12 Polychromasia Not Reportable 11/10/21 06:12 Hypochromasia Not Reportable 11/10/21 06:12 Poikilocytosis Not Reportable 11/10/21 06:12 Anisocytosis Not Reportable 11/10/21 06:12 Microcytosis Not Reportable 11/10/21 06:12 Macrocytosis Not Reportable 11/10/21 06:12 Spherocytes Not Reportable 11/10/21 06:12 Pappenheimer Bodies Not Reportable 11/10/21 06:12 Sickle Cells Not Reportable 11/10/21 06:12 Target Cells Not Reportable 11/10/21 06:12 Tear Drop Cells Not Reportable 11/10/21 06:12 Ovalocytes Not Reportable 11/10/21 06:12 Helmet Cells Not Reportable 11/10/21 06:12 [place] Bodies Not Reportable 11/10/21 06:12 [place] Rings Not Reportable 11/10/21 06:12 [place] Cells Not Reportable 11/10/21 06:12 Bite Cells Not Reportable 11/10/21 06:12 Crenated Cell Not Reportable 11/10/21 06:12 Elliptocytes Not Reportable 11/10/21 06:12 Acanthocytes (Spur) Not Reportable 11/10/21 06:12 Rouleaux Not Reportable 11/10/21 06:12 Hemoglobin C Crystals Not Reportable 11/10/21 06:12 Schistocytes Not Reportable 11/10/21 06:12 Malaria parasites Not Reportable 11/10/21 06:12 Logan Bodies Not Reportable 11/10/21 06:12 Hem Pathologist Commnt No 11/10/21 06:12 PT 14.2 Sec. (12.2-14.9) 11/09/21 15:51 INR 0.99 (0.87-1.13) 11/09/21 15:51 APTT 28.6 Sec. (24.2-36.6) 11/09/21 15:51 ABG pH 7.419 pH Units (7.350-7.450) 11/11/21 04:40 ABG pCO2 36.4 mm Hg 11/11/21 04:40 ABG pO2 144.3 mm Hg (80.0-90.0) H 11/11/21 04:40 ABG HCO3 23.0 mmol/L (20.0-26.0) 11/11/21 04:40 ABG O2 Saturation 98.8 % (95.0-99.0) 11/11/21 04:40 ABG O2 Content 19.4 (0.0-44) 11/11/21 04:40 ABG Base Excess -1.0 mmol/L (-2.0-3.0) 11/11/21 04:40 ABG Hemoglobin 14.0 gm/dl (14.0-18.0) 11/11/21 04:40 ABG Carboxyhemoglobin 1.0 % (0.0-5.0) 11/11/21 04:40 ABG Methemoglobin 0.5 % (0.0-1.5) 11/11/21 04:40 Oxyhemoglobin 97.2 % (95.0-99.0) 11/11/21 04:40 FiO2 45 % 11/11/21 04:40 Sodium 142 mmol/L (137-145) 11/11/21 04:32 Potassium 4.3 mmol/L (3.6-5.0) 11/11/21 04:32 Chloride 102.6 mmol/L (98-107) 11/11/21 04:32 Carbon Dioxide 24 mmol/L (22-30) 11/11/21 04:32 Anion Gap 20 mmol/L 11/11/21 04:32 BUN 42 mg/dL (9-20) H 11/11/21 04:32 Creatinine 3.3 mg/dL (0.8-1.3) H 11/11/21 04:32 Estimated GFR 19 ml/min 11/11/21 04:32 BUN/Creatinine Ratio 13 % 11/11/21 04:32 Glucose 171 mg/dL (75-100) H 11/11/21 04:32 POC Glucose 146 mg/dL (70-105) H 11/10/21 22:00 Lactic Acid 2.10 mmol/L (0.7-2.0) H* 11/11/21 04:32 Calcium 8.2 mg/dL (8.4-10.2) L 11/11/21 04:32 Phosphorus 3.10 mg/dL (2.5-4.5) 11/11/21 04:32 Magnesium 2.20 mg/dL (1.7-2.3) 11/11/21 04:32 Total Bilirubin 0.20 mg/dL (0.1-1.2) 11/07/21 04:46 AST 15 units/L (5-40) 11/07/21 04:46 ALT 10 units/L (7-56) 11/07/21 04:46 Alkaline Phosphatase 68 units/L (35-129) 11/07/21 04:46 Total Protein 7.1 g/dL (6.3-8.2) 11/07/21 04:46 Albumin 4.2 g/dL (3.9-5) 11/07/21 04:46 Albumin/Globulin Ratio 1.4 % 11/07/21 04:46 Urine Color Yellow (Yellow) 11/07/21 06:24 Urine Turbidity Clear (Clear) 11/07/21 06:24 Urine pH 6.0 (5.0-7.0) 11/07/21 06:24 Ur Specific [place] 1.006 (1.003-1.030) 11/07/21 06:24 Urine Protein <15 mg/dl mg/dL (Negative) 11/07/21 06:24 Urine Glucose (UA) Neg mg/dL (Negative) 11/07/21 06:24 Urine Ketones Neg mg/dL (Negative) 11/07/21 06:24 Urine Blood Sm (Negative) 11/07/21 06:24 Urine Nitrite Neg (Negative) 11/07/21 06:24 Urine Bilirubin Neg (Negative) 11/07/21 06:24 Urine Urobilinogen < 2.0 mg/dL (<2.0) 11/07/21 06:24 Ur Leukocyte Esterase Neg (Negative) 11/07/21 06:24 Urine WBC (Auto) < 1.0 /HPF (0.0-6.0) 11/07/21 06:24 Urine RBC (Auto) < 1.0 /HPF (0.0-6.0) 11/07/21 06:24 Urine Opiates Screen Negative 11/07/21 06:24 Urine Methadone Screen Negative 11/07/21 06:24 Ur Barbiturates Screen Negative 11/07/21 06:24 Ur Phencyclidine Scrn Negative 11/07/21 06:24 Ur Amphetamines Screen Negative 11/07/21 06:24 U Benzodiazepines Scrn Negative 11/07/21 06:24 Urine Cocaine Screen Negative 11/07/21 06:24 U Marijuana (THC) Screen Negative 11/07/21 06:24 Drugs of Abuse Note Disclamer 11/07/21 06:24 Plasma/Serum Alcohol 0.17 % (0-0.07) H 11/07/21 04:46 Blood Type O POSITIVE 11/07/21 05:35 Antibody Screen Negative 11/07/21 05:35 Microbiology: Microbiology 11/10/21 09:25 Peripheral/Venous Blood Culture - Preliminary NO GROWTH AFTER 24 HOURS 11/10/21 09:25 Peripheral/Venous Blood Culture - Preliminary NO GROWTH AFTER 24 HOURS 11/10/21 Unknown Tracheal Aspirate Sputum Culture - Preliminary North/IV: Voiding Method Incontinent Active Medications - Current Medications Current Medications: Generic Name Dose Route Start Last Admin Trade Name Freq PRN Reason Stop Dose Admin Acetaminophen 650 mg 11/07/21 05:39 11/10/21 20:05 Acetaminophen 325 Mg Tab PO 650 mg Q4H PRN Administration Fever >101 Albuterol 2.5 mg 11/07/21 05:39 Albuterol 2.5 Mg/3 Ml Nebu IH Q3HRT PRN Shortness Of Breath Atorvastatin Calcium 40 mg 11/09/21 22:00 11/10/21 22:12 Atorvastatin 40 Mg Tab PO Not Given QHS JANICE Calcium Carbonate/Glycine 1,250 mg 11/10/21 10:00 11/11/21 09:39 Calcium Carbonate 1250 Mg Tab PO 1,250 mg BID JANICE Administration Carvedilol 12.5 mg 11/07/21 10:00 11/11/21 09:41 Carvedilol 12.5 Mg Tab PO Not Given BID JANICE Dextrose 0 ml 11/07/21 05:49 11/09/21 05:50 Dextrose 10% *Hypoglycemia IV 50 ml PRN PRN Administration Hypoglycemia Famotidine 10 mg 11/11/21 10:00 11/11/21 09:38 Famotidine 20 Mg/2 Ml Inj IV 10 mg BID JANICE Administration Fenofibrate 48 mg 11/07/21 10:00 11/11/21 09:38 Fenofibrate 48 Mg Tab PO 48 mg DAILY JANICE Administration Heparin Sodium (Porcine) 5,000 unit 11/11/21 22:00 Heparin 5,000 Unit/1 Ml Vial SUB-Q Q12HR JANICE Hydralazine HCl 10 mg 11/07/21 05:49 Hydralazine 20 Mg/1 Ml Inj IV Q6H PRN SBP > 170; DBP > 100 Hydromorphone HCl 1 mg 11/07/21 08:08 11/09/21 17:55 Hydromorphone 1 Mg/1 Ml Inj IV 1 mg Q3H PRN Administration Pain , Severe (7-10) Lactated Ringer's 1,000 mls @ 100 mls/hr 11/09/21 11:45 11/09/21 20:42 Lactated Ringers IV 100 mls/hr DIRECT JANICE Administration Epinephrine 8 mg/ Sodium 250 mls @ 3.75 mls/hr 11/10/21 06:00 11/10/21 11:47 Chloride IV 0 mcg/min TITR JANICE 0 mls/hr Titration Protocol 2 MCG/MIN NORepinephrine/NS 8 MG-250 ML 8 mg in 250 mls @ 56.25 mls/hr 11/10/21 06:00 11/10/21 11:30 Norepinephrine/Ns 8 Mg-250 Ml (Double Conc) IV 0 mcg/min TITRATE JANICE 0 mls/hr Titration Protocol 30 MCG/MIN Phenylephrine HCl 100 mg/ 100 mls @ 3 mls/hr 11/10/21 06:30 Sodium Chloride IV TITR JANICE Protocol 50 MCG/MIN Dextrose/Sodium Chloride 1,000 mls @ 50 mls/hr 11/10/21 18:00 11/10/21 18:07 D5/0.45ns IV 11/11/21 18:00 50 mls/hr DIRECT JANICE Administration Cefepime HCl 1 gm in 100 mls @ 200 mls/hr 11/11/21 10:00 11/11/21 09:41 Cefepime/Ns 1 Gm/100 Ml IV 200 mls/hr Q12H JANICE Administration Protocol Vancomycin HCl 1,250 mg/ 275 mls @ 333 mls/hr 11/11/21 09:30 11/11/21 09:35 Sodium Chloride IV 11/11/21 12:30 333 mls/hr ONCE@0930 JANICE Administration Protocol Insulin Human Lispro 0 unit 11/07/21 06:00 11/11/21 06:25 Insulin Lispro 100 Unit/Ml SUB-Q 2 unit Q6HR [facility] Administration Protocol Lisinopril 40 mg 11/07/21 22:00 11/10/21 22:13 Lisinopril 40 Mg Tab PO Not Given QHS JANICE Lorazepam 2 mg 11/07/21 05:49 11/10/21 02:20 Lorazepam 2 Mg/Ml Vial IV 2 mg Q1H PRN Administration [facility] 8-15 Morphine Sulfate 2 mg 11/07/21 05:39 11/08/21 06:02 Morphine 2 Mg/1 Ml Inj IV 2 mg Q4H PRN Administration Pain, Moderate (4-6) Ondansetron HCl 4 mg 11/07/21 05:39 Ondansetron 4 Mg/2 Ml Inj IV Q8H PRN Nausea And Vomiting Oxybutynin Chloride 5 mg 11/07/21 08:00 11/11/21 09:39 Oxybutynin 5 Mg Tab PO 5 mg TID JANICE Administration Sodium Chloride 10 ml 11/07/21 10:00 11/11/21 09:41 Sodium Chloride 0.9% 10 Ml Flush Syringe IV 10 ml BID JANICE Administration Sodium Chloride 10 ml 11/07/21 05:39 Sodium Chloride 0.9% 10 Ml Flush Syringe IV PRN PRN LINE FLUSH <LUCAS CURRY - Last Filed: 11/12/21 07:16> Assessment and Plan Assessment and plan: I saw and evaluated the patient. I agree with the findings and the plan of care as documented in the Nurse Practitioner's~note, with the following corrections and additions. Hospitalist Physical - Constitutional Vitals: Temp Pulse Resp BP Pulse Ox 98.2 F 59 L 0 L 109/75 76 L 11/11/21 12:00 11/11/21 15:01 11/11/21 16:00 11/11/21 16:00 11/11/21 15:01 Results - Labs CBC & Chem 7: 11/11/21 04:32 11/11/21 04:32 Labs: Laboratory Last Values WBC 8.8 K/mm3 (4.5-11.0) 11/11/21 04:32 RBC 3.95 M/mm3 (3.65-5.03) 11/11/21 04:32 Hgb 14.1 gm/dl (11.8-15.2) 11/11/21 04:32 Hct 39.8 % (35.5-45.6) 11/11/21 04:32 MCV 101 fl (84-94) H 11/11/21 04:32 MCH 36 pg (28-32) H 11/11/21 04:32 MCHC 35 % (32-34) H 11/11/21 04:32 RDW 14.4 % (13.2-15.2) 11/11/21 04:32 Plt Count 128 K/mm3 (140-440) L 11/11/21 04:32 Lymph % (Auto) 10.2 % (13.4-35.0) L 11/09/21 06:39 [place] % (Auto) 11.0 % (0.0-7.3) H 11/09/21 06:39 Eos % (Auto) 2.1 % (0.0-4.3) 11/09/21 06:39 Baso % (Auto) 0.5 % (0.0-1.8) 11/09/21 06:39 Lymph # (Auto) 0.5 K/mm3 (1.2-5.4) L 11/09/21 06:39 [place] # (Auto) 0.5 K/mm3 (0.0-0.8) 11/09/21 06:39 Eos # (Auto) 0.1 K/mm3 (0.0-0.4) 11/09/21 06:39 Baso # (Auto) 0.0 K/mm3 (0.0-0.1) 11/09/21 06:39 Add Manual Diff Complete 11/10/21 06:12 Total Counted 100 11/10/21 06:12 Seg Neutrophils % 76.2 % (40.0-70.0) H 11/09/21 06:39 Seg Neuts % (Manual) 75.0 % (40.0-70.0) H 11/10/21 06:12 Band Neutrophils % 0 % 11/10/21 06:12 Lymphocytes % (Manual) 18.0 % (13.4-35.0) 11/10/21 06:12 Reactive Lymphs % (Man) 0 % 11/10/21 06:12 Monocytes % (Manual) 6.0 % (0.0-7.3) 11/10/21 06:12 Eosinophils % (Manual) 0 % (0.0-4.3) 11/10/21 06:12 Basophils % (Manual) 0 % (0.0-1.8) 11/10/21 06:12 Metamyelocytes % 1.0 % 11/10/21 06:12 Myelocytes % 0 % 11/10/21 06:12 Promyelocytes % 0 % 11/10/21 06:12 Blast Cells % 0 % 11/10/21 06:12 Nucleated RBC % Not Reportable 11/10/21 06:12 Seg Neutrophils # 3.7 K/mm3 (1.8-7.7) 11/09/21 06:39 Seg Neutrophils # Man 7.1 K/mm3 (1.8-7.7) 11/10/21 06:12 Band Neutrophils # 0.0 K/mm3 11/10/21 06:12 Lymphocytes # (Manual) 1.7 K/mm3 (1.2-5.4) 11/10/21 06:12 Abs React Lymphs (Man) 0.0 K/mm3 11/10/21 06:12 Monocytes # (Manual) 0.6 K/mm3 (0.0-0.8) 11/10/21 06:12 Eosinophils # (Manual) 0.0 K/mm3 (0.0-0.4) 11/10/21 06:12 Basophils # (Manual) 0.0 K/mm3 (0.0-0.1) 11/10/21 06:12 Metamyelocytes # 0.1 K/mm3 11/10/21 06:12 Myelocytes # 0.0 K/mm3 11/10/21 06:12 Promyelocytes # 0.0 K/mm3 11/10/21 06:12 Blast Cells # 0.0 K/mm3 11/10/21 06:12 WBC Morphology Not Reportable 11/10/21 06:12 Hypersegmented Neuts Not Reportable 11/10/21 06:12 Hyposegmented Neuts Not Reportable 11/10/21 06:12 Hypogranular Neuts Not Reportable 11/10/21 06:12 Smudge Cells Not Reportable 11/10/21 06:12 Toxic Granulation Not Reportable 11/10/21 06:12 Toxic Vacuolation Not Reportable 11/10/21 06:12 Dohle Bodies Not Reportable 11/10/21 06:12 Pelger-Huet Anomaly Not Reportable 11/10/21 06:12 Dayday Rods Not Reportable 11/10/21 06:12 Platelet Estimate Consistent w auto 11/10/21 06:12 Clumped Platelets Not Reportable 11/10/21 06:12 Plt Clumps, EDTA Not Reportable 11/10/21 06:12 Large Platelets Few 11/10/21 06:12 Giant Platelets Not Reportable 11/10/21 06:12 Platelet Satelliting Not Reportable 11/10/21 06:12 Plt Morphology Comment Not Reportable 11/10/21 06:12 RBC Morphology Normal 11/10/21 06:12 Dimorphic RBCs Not Reportable 11/10/21 06:12 Polychromasia Not Reportable 11/10/21 06:12 Hypochromasia Not Reportable 11/10/21 06:12 Poikilocytosis Not Reportable 11/10/21 06:12 Anisocytosis Not Reportable 11/10/21 06:12 Microcytosis Not Reportable 11/10/21 06:12 Macrocytosis Not Reportable 11/10/21 06:12 Spherocytes Not Reportable 11/10/21 06:12 Pappenheimer Bodies Not Reportable 11/10/21 06:12 Sickle Cells Not Reportable 11/10/21 06:12 Target Cells Not Reportable 11/10/21 06:12 Tear Drop Cells Not Reportable 11/10/21 06:12 Ovalocytes Not Reportable 11/10/21 06:12 Helmet Cells Not Reportable 11/10/21 06:12 [place] Bodies Not Reportable 11/10/21 06:12 [place] Rings Not Reportable 11/10/21 06:12 [place] Cells Not Reportable 11/10/21 06:12 Bite Cells Not Reportable 11/10/21 06:12 Crenated Cell Not Reportable 11/10/21 06:12 Elliptocytes Not Reportable 11/10/21 06:12 Acanthocytes (Spur) Not Reportable 11/10/21 06:12 Rouleaux Not Reportable 11/10/21 06:12 Hemoglobin C Crystals Not Reportable 11/10/21 06:12 Schistocytes Not Reportable 11/10/21 06:12 Malaria parasites Not Reportable 11/10/21 06:12 [place] Bodies Not Reportable 11/10/21 06:12 Hem Pathologist Commnt No 11/10/21 06:12 PT 14.2 Sec. (12.2-14.9) 11/09/21 15:51 INR 0.99 (0.87-1.13) 11/09/21 15:51 APTT 28.6 Sec. (24.2-36.6) 11/09/21 15:51 ABG pH 7.419 pH Units (7.350-7.450) 11/11/21 04:40 ABG pCO2 36.4 mm Hg 11/11/21 04:40 ABG pO2 144.3 mm Hg (80.0-90.0) H 11/11/21 04:40 ABG HCO3 23.0 mmol/L (20.0-26.0) 11/11/21 04:40 ABG O2 Saturation 98.8 % (95.0-99.0) 11/11/21 04:40 ABG O2 Content 19.4 (0.0-44) 11/11/21 04:40 ABG Base Excess -1.0 mmol/L (-2.0-3.0) 11/11/21 04:40 ABG Hemoglobin 14.0 gm/dl (14.0-18.0) 11/11/21 04:40 ABG Carboxyhemoglobin 1.0 % (0.0-5.0) 11/11/21 04:40 ABG Methemoglobin 0.5 % (0.0-1.5) 11/11/21 04:40 Oxyhemoglobin 97.2 % (95.0-99.0) 11/11/21 04:40 FiO2 45 % 11/11/21 04:40 Sodium 142 mmol/L (137-145) 11/11/21 04:32 Potassium 4.3 mmol/L (3.6-5.0) 11/11/21 04:32 Chloride 102.6 mmol/L (98-107) 11/11/21 04:32 Carbon Dioxide 24 mmol/L (22-30) 11/11/21 04:32 Anion Gap 20 mmol/L 11/11/21 04:32 BUN 42 mg/dL (9-20) H 11/11/21 04:32 Creatinine 3.3 mg/dL (0.8-1.3) H 11/11/21 04:32 Estimated GFR 19 ml/min 11/11/21 04:32 BUN/Creatinine Ratio 13 % 11/11/21 04:32 Glucose 171 mg/dL (75-100) H 11/11/21 04:32 POC Glucose 118 mg/dL (70-105) H 11/11/21 12:58 Lactic Acid 2.10 mmol/L (0.7-2.0) H* 11/11/21 04:32 Calcium 8.2 mg/dL (8.4-10.2) L 11/11/21 04:32 Phosphorus 3.10 mg/dL (2.5-4.5) 11/11/21 04:32 Magnesium 2.20 mg/dL (1.7-2.3) 11/11/21 04:32 Total Bilirubin 0.20 mg/dL (0.1-1.2) 11/07/21 04:46 AST 15 units/L (5-40) 11/07/21 04:46 ALT 10 units/L (7-56) 11/07/21 04:46 Alkaline Phosphatase 68 units/L (35-129) 11/07/21 04:46 Total Protein 7.1 g/dL (6.3-8.2) 11/07/21 04:46 Albumin 4.2 g/dL (3.9-5) 11/07/21 04:46 Albumin/Globulin Ratio 1.4 % 11/07/21 04:46 Urine Color Yellow (Yellow) 11/07/21 06:24 Urine Turbidity Clear (Clear) 11/07/21 06:24 Urine pH 6.0 (5.0-7.0) 11/07/21 06:24 Ur Specific [place] 1.006 (1.003-1.030) 11/07/21 06:24 Urine Protein <15 mg/dl mg/dL (Negative) 11/07/21 06:24 Urine Glucose (UA) Neg mg/dL (Negative) 11/07/21 06:24 Urine Ketones Neg mg/dL (Negative) 11/07/21 06:24 Urine Blood Sm (Negative) 11/07/21 06:24 Urine Nitrite Neg (Negative) 11/07/21 06:24 Urine Bilirubin Neg (Negative) 11/07/21 06:24 Urine Urobilinogen < 2.0 mg/dL (<2.0) 11/07/21 06:24 Ur Leukocyte Esterase Neg (Negative) 11/07/21 06:24 Urine WBC (Auto) < 1.0 /HPF (0.0-6.0) 11/07/21 06:24 Urine RBC (Auto) < 1.0 /HPF (0.0-6.0) 11/07/21 06:24 Urine Opiates Screen Negative 11/07/21 06:24 Urine Methadone Screen Negative 11/07/21 06:24 Ur Barbiturates Screen Negative 11/07/21 06:24 Ur Phencyclidine Scrn Negative 11/07/21 06:24 Ur Amphetamines Screen Negative 11/07/21 06:24 U Benzodiazepines Scrn Negative 11/07/21 06:24 Urine Cocaine Screen Negative 11/07/21 06:24 U Marijuana (THC) Screen Negative 11/07/21 06:24 Drugs of Abuse Note Disclamer 11/07/21 06:24 Plasma/Serum Alcohol 0.17 % (0-0.07) H 11/07/21 04:46 Blood Type O POSITIVE 11/07/21 05:35 Antibody Screen Negative 11/07/21 05:35 Microbiology: Microbiology 11/10/21 Unknown Tracheal Aspirate Sputum Culture - Preliminary 11/10/21 09:25 Peripheral/Venous Blood Culture - Preliminary NO GROWTH AFTER 24 HOURS 11/10/21 09:25 Peripheral/Venous Blood Culture - Preliminary NO GROWTH AFTER 24 HOURS [place]/IV: Voiding Method Incontinent Nutrition/Malnutrition Assess - Dietary Evaluation Nutrition/Malnutrition Findings: Nutrition Notes Start: 11/11/21 10:14 Freq: Status: Discharge Protocol: Document 11/11/21 10:14 TOOTIE (Rec: 11/11/21 11:04 TOOTIE [id number]) Nutrition Notes Need for Assessment generated from: MD Order Initial or Follow up Assessment Current Diagnosis Acute Kidney Injury,Coronary Artery Disease,Hypertension, Respiratory Failure Other Pertinent Diagnosis s/p PEA Arrest/ROSC, Metabolic Encephalopathy, s/p L-Hip fracture, ... Current Diet NPO (since 11/09 07:14), TF- Nepro w/CARBSTEADY @ 49 ml/hr (since L 11/11). Labs/Tests 11/11: BUN 42, Crea 3.3, Glu 171, Ca 8.2. Pertinent Medications 11/11: D5/0.45ns 1000 ml @ 50 ml/hr, Insulin, others nutritionally unremarkable. Height 6 ft 2 in Weight 90.71 kg [place] Body Weight (kg) 86.36 BMI 25.7 Intake Prior to Admission Good Weight change and time frame Pt states being unsure if loss body weight [employer]. Weight Status Appropriate Subjective/Other Information RD consult for write/manage TF . Pt on Mechanical Ventilation. Pt currently on NPO. Before NPO pt's PO intake of meals was Good (75-100%), according to ADL notes. Procedure 11/09: IM nail stabilization with TriGEN InterTAN syste. Well tolerated , according to Progress notes. Code Blue called on 11/10 with ROSC. Percent of energy/protein needs met: Pt currently on NPO. Prescribed TF-Nepro w/ CARBSTEADY @ 49 ml/hr provides for energy/protein needs (2, 102 Kcal/95 g) during LOS, 100 % Kcal; 87% AA. Burn Absent Trauma Absent GI Symptoms Diarrhea Food Allergy No Skin Integrity/Comment Assessment WNL. Current % PO Other Minimum of two criteria No #1 Nutrition Diagnosis Inadequate oral intake Etiology Pt on Mechanical Ventilation. As Evidenced by Signs and Symptoms Pt currently on NPO. Is patient on ventilator? Yes Is Patient Ambulatory and/or Out of Bed No REE-([facility]-confined to bed) 9027.146 Calculation Used for Recommendations [facility] Additional Notes Protein: 1.2-2 g/Kg ABW; 109- 182 g/day. Fluids: 1 ml/Kcal, or as per MD. Nutrition Intervention Nutrition Support: Start Nepro w/CARBSTEADY @ 49 ml/hr. Flush: 200 ml water Q 4 hr, or as per MD. Kcal 2,102 Protein (gm) 95 Carbohydrates (gm) 188 Fat (gm) 112 Fluid (mL) 849 Fiber (gm) 15 % RDI: 100% Kcal; 87% AA. Goal #1 Provide at least 75% of energy /protein needs through Enteral Feeding during LOS. Goal #2 Maintain body weight within +/ -3% of admission body weight during LOS. Follow-Up By: 11/13/21 Additional Comments Start monitoring TF tolerance and BM.
[2021-11-11] MEDS: NORepinephrine/NS 8 MG-250 ML 8 MG/250 ML INFUS..BTL IV SCH (12:54)
--- NOTE | 2021-11-11 13:12 | Magnetic Resonance Report ---
MR brain wo con INDICATION / CLINICAL INFORMATION: 66 years Male; Cerebral Edema. TECHNIQUE: Multiplanar, multisequence MR images of the brain were obtained. COMPARISON: The study is compared to the previous CT of 11/10/2021. FINDINGS: BRAIN / INTRACRANIAL CONTENTS: The MRI findings correlate with the earlier CT demonstrating edema pro jected within the globus pallidi bilaterally. On the CT, there was also suggestion of diffuse cerebra l edema with relative effacement of the sulci. The findings also correlate on the current MRI with fi ndings indicative of more subtle diffuse cerebral edema. On the diffusion imaging, there is notable i ncreased diffusion signal with decreased ADC signal within the hippocampi bilaterally compatible with acute infarcts. More subtle signal changes are seen diffusely within the cerebral cortex indicative of diffuse hypoxia. The ventricular system appears unchanged in size and configuration. No extra-axial fluid collections or significant mass effect is identified. The degree of mass effect results in some effacement of the basal cisterns and encroachment on the cervical medullary junction at the level the foramen magnum CRANIOCERVICAL JUNCTION: As above. VASCULAR FLOW-VOIDS: There appear to be appropriate signal voids within the intracranial ICAs and dev elopmental delay hypoplastic vertebrobasilar system. ORBITS: No significant abnormality of visualized orbits. SINUSES / MASTOIDS: Extensive inflammatory changes with scattered air-fluid levels are seen within th e paranasal sinuses related to the intubation. ADDITIONAL FINDINGS: None. IMPRESSION: 1. The findings correlate with the CT demonstrating diffuse cerebral edema, particularly involving th e basal ganglia as detailed above. Additionally, there also appear to be diffuse ischemic changes wit h restricted diffusion most notably involving the hippocampi bilaterally, also described above. The f indings result in associated mass effect with sulcal effacement and developing effacement of the basa l cisterns. Signer Name: Mani Fitzgerald MD Signed: 11/11/2021 1:07 PM Workstation Name: [id number]
--- NOTE | 2021-11-11 13:55 | Progress Note ---
Assessment and Plan s/p PEA Arrest with ROSC Acute Hypoxemic Respiratory Failure -Intubated during code on 11/10 H/o CAD s/p CABG- 12 years ago Acute Metabolic Encephalopathy Myoclonic Jerks H/o Alcohol Abuse/ Alcohol Intoxication Acute Kidney Injury(LIANG) most likely ATN Hyperkalemia Closed Left Intertrochanteric Fracture S/p IM nail stabilization -Fall at home, imaging revealed left femoral neck fracture Based on the clinical findings and the neuro imaging the family have decided on DNR and withdrawal of care CONDITION: CRITICAL PROGNOSIS: GUARDED-GRAVE CODE STATUS: DNAR Subjective Date of service: 11/11/21 Interval history: Remains on the vent and unresponsive. CTA neg PE and BLE doppler with no evidence of DVT. CT head also noted, Teleneuro consulted and Neuro Surgery also consulted for further recommendations. MRI brain ordered. Febrile overnight, wbcs remains normal, ID was also consulted. Renal function worsen, continue IV hydration, Nephrology is also following. Attending discussed CT head result and current POC with patient's son and daughter at the bedside. All questions and concerns were voiced at this time. Objective Vital Signs - 12hr 11/11/21 11/11/21 11/11/21 02:00 02:30 03:00 Temperature Pulse Rate 107 H 108 H 105 H Pulse Rate [ 110 H Radial] Respiratory 28 H 28 H 28 H Rate Blood Pressure 101/65 106/58 103/64 O2 Sat by Pulse 100 100 100 Oximetry 11/11/21 11/11/21 11/11/21 03:30 04:00 04:01 Temperature 102 F H Pulse Rate 105 H 101 H Pulse Rate [ Radial] Respiratory 28 H 21 Rate Blood Pressure 95/62 116/74 O2 Sat by Pulse 100 100 Oximetry 11/11/21 11/11/21 11/11/21 04:30 04:57 05:00 Temperature Pulse Rate 103 H 100 H 102 H Pulse Rate [ Radial] Respiratory 26 H 28 H Rate Blood Pressure 118/69 122/71 121/68 O2 Sat by Pulse 100 93 90 Oximetry 11/11/21 11/11/21 11/11/21 05:30 06:00 06:30 Temperature Pulse Rate 102 H 100 H 100 H Pulse Rate [ 110 H Radial] Respiratory 22 28 H 28 H Rate Blood Pressure 129/71 134/75 139/77 O2 Sat by Pulse 94 97 99 Oximetry 11/11/21 11/11/21 11/11/21 07:00 07:30 08:00 Temperature 98.2 F Pulse Rate 101 H 99 H 98 H Pulse Rate [ Radial] Respiratory 28 H 28 H 28 H Rate Blood Pressure 136/73 150/78 144/72 O2 Sat by Pulse 99 99 98 Oximetry 11/11/21 11/11/21 11/11/21 08:30 08:35 09:00 Temperature Pulse Rate 98 H 99 H 103 H Pulse Rate [ Radial] Respiratory 28 H 28 H Rate Blood Pressure 150/75 158/76 156/73 O2 Sat by Pulse 98 100 99 Oximetry 11/11/21 11/11/21 11/11/21 09:31 09:41 10:00 Temperature Pulse Rate 99 H 98 H 98 H Pulse Rate [ Radial] Respiratory 28 H 27 H Rate Blood Pressure 133/72 133/72 137/72 O2 Sat by Pulse 97 97 Oximetry 11/11/21 11/11/21 12:00 12:40 Temperature 98.2 F Pulse Rate 64 Pulse Rate [ Radial] Respiratory Rate Blood Pressure 61/29 O2 Sat by Pulse 100 Oximetry Constitutional: other (orally intuabted on MVS, riding set rate. No cough or gag reflex) Eyes: non-icteric, other (irregular non reactive) ENT: oropharynx moist Neck: no lymphadenopathy, no JVD Effort: normal Ascultation: Bilateral: diminished breath sounds Cardiovascular: regular rate and rhythm, other (S1,S2) Gastrointestinal: normoactive bowel sounds, soft, non-tender Integumentary: normal, other (Left lower extemity some swelling) Extremities: no cyanosis, pulses normal Neurologic: unable to assess Psychiatric: other (unable to assess) CBC and BMP: 11/11/21 04:32 11/11/21 04:32 ABG, PT/INR, D-dimer: ABG ABG pH 7.419 pH Units (7.350-7.450) 11/11/21 04:40 ABG pCO2 36.4 mm Hg 11/11/21 04:40 ABG pO2 144.3 mm Hg (80.0-90.0) H 11/11/21 04:40 ABG O2 Saturation 98.8 % (95.0-99.0) 11/11/21 04:40 PT/INR, D-dimer PT 14.2 Sec. (12.2-14.9) 11/09/21 15:51 INR 0.99 (0.87-1.13) 11/09/21 15:51 Abnormal lab findings: Abnormal Labs 11/07/21 11/07/21 11/07/21 04:46 04:46 04:46 Hgb 16.8 H Hct 50.1 H MCV 101 H MCH 34 H MCHC Plt Count Lymph % (Auto) 10.9 L [place] % (Auto) Lymph # (Auto) 0.9 L Seg Neutrophils % 81.9 H Seg Neuts % (Manual) ABG pH ABG pO2 ABG O2 Saturation ABG Base Excess Potassium BUN Creatinine Glucose 116 H POC Glucose Lactic Acid Calcium Plasma/Serum Alcohol 0.17 H 11/08/21 11/08/21 11/08/21 04:58 04:58 16:31 Hgb Hct 45.7 H MCV 102 H MCH 34 H MCHC Plt Count 124 L Lymph % (Auto) Kimball % (Auto) 11.4 H Lymph # (Auto) 0.9 L Seg Neutrophils % Seg Neuts % (Manual) ABG pH ABG pO2 ABG O2 Saturation ABG Base Excess Potassium BUN Creatinine Glucose POC Glucose 126 H Lactic Acid Calcium 8.3 L Plasma/Serum Alcohol 11/08/21 11/09/21 11/09/21 23:19 06:39 06:39 Hgb Hct MCV 102 H MCH 34 H MCHC Plt Count 111 L Lymph % (Auto) 10.2 L [place] % (Auto) 11.0 H Lymph # (Auto) 0.5 L Seg Neutrophils % 76.2 H Seg Neuts % (Manual) ABG pH ABG pO2 ABG O2 Saturation ABG Base Excess Potassium BUN Creatinine Glucose POC Glucose 110 H Lactic Acid Calcium 8.0 L Plasma/Serum Alcohol 11/09/21 11/10/21 11/10/21 18:10 05:14 06:11 Hgb Hct MCV MCH MCHC Plt Count Lymph % (Auto) [place] % (Auto) Lymph # (Auto) Seg Neutrophils % Seg Neuts % (Manual) ABG pH ABG pO2 ABG O2 Saturation ABG Base Excess Potassium 6.2 H* D BUN Creatinine 1.4 H Glucose 113 H POC Glucose 111 H 119 H Lactic Acid Calcium 8.0 L Plasma/Serum Alcohol 11/10/21 11/10/21 11/10/21 06:12 06:12 06:12 Hgb Hct MCV 102 H MCH 36 H MCHC 35 H Plt Count Lymph % (Auto) [place] % (Auto) Lymph # (Auto) Seg Neutrophils % Seg Neuts % (Manual) 75.0 H ABG pH 7.092 L* ABG pO2 237.5 H ABG O2 Saturation 99.2 H ABG Base Excess -10.7 L Potassium BUN Creatinine Glucose POC Glucose Lactic Acid 5.40 H* Calcium Plasma/Serum Alcohol 11/10/21 11/10/21 11/10/21 08:03 09:25 11:00 Hgb Hct MCV MCH MCHC Plt Count Lymph % (Auto) [place] % (Auto) Lymph # (Auto) Seg Neutrophils % Seg Neuts % (Manual) ABG pH 7.346 L ABG pO2 366.8 H ABG O2 Saturation 99.5 H ABG Base Excess -2.4 L Potassium 5.4 H BUN Creatinine Glucose POC Glucose 131 H Lactic Acid Calcium 7.9 L Plasma/Serum Alcohol 11/10/21 11/10/21 11/10/21 12:19 12:19 12:24 Hgb Hct MCV MCH MCHC Plt Count Lymph % (Auto) [place] % (Auto) Lymph # (Auto) Seg Neutrophils % Seg Neuts % (Manual) ABG pH ABG pO2 ABG O2 Saturation ABG Base Excess Potassium 5.6 H BUN 26 H Creatinine 1.6 H Glucose 232 H POC Glucose 215 H Lactic Acid 3.20 H* Calcium 6.7 L D Plasma/Serum Alcohol 11/10/21 11/10/21 11/10/21 18:37 19:45 22:00 Hgb Hct MCV MCH MCHC Plt Count Lymph % (Auto) [place] % (Auto) Lymph # (Auto) Seg Neutrophils % Seg Neuts % (Manual) ABG pH ABG pO2 ABG O2 Saturation ABG Base Excess Potassium BUN 34 H Creatinine 2.5 H D Glucose 137 H POC Glucose 130 H 146 H Lactic Acid Calcium 7.7 L Plasma/Serum Alcohol 11/11/21 11/11/21 11/11/21 04:32 04:32 04:32 Hgb Hct MCV 101 H MCH 36 H MCHC 35 H Plt Count 128 L Lymph % (Auto) [place] % (Auto) Lymph # (Auto) Seg Neutrophils % Seg Neuts % (Manual) ABG pH ABG pO2 ABG O2 Saturation ABG Base Excess Potassium BUN 42 H Creatinine 3.3 H Glucose 171 H POC Glucose Lactic Acid 2.10 H* Calcium 8.2 L Plasma/Serum Alcohol 11/11/21 11/11/21 04:40 12:58 Hgb Hct MCV MCH MCHC Plt Count Lymph % (Auto) [place] % (Auto) Lymph # (Auto) Seg Neutrophils % Seg Neuts % (Manual) ABG pH ABG pO2 144.3 H ABG O2 Saturation ABG Base Excess Potassium BUN Creatinine Glucose POC Glucose 118 H Lactic Acid Calcium Plasma/Serum Alcohol
[2021-11-11] MEDS ORDERED: ACETAMINOPHEN 650 MG RECT SUPP PR PRN (14:28)
[2021-11-11] MEDS ORDERED: diphenhydrAMINE 50 MG/ML VIAL IV PRN (14:28)
[2021-11-11] MEDS ORDERED: GLYCOPYRROLATE 0.4 MG/2 ML INJ IV PRN (14:28)
[2021-11-11] MEDS ORDERED: LORazepam 2 MG/ML VIAL IV ONE ×3 (14:45→14:50)
[2021-11-11] MEDS ORDERED: MORPHINE 4 MG/1 ML INJ IV ONE ×4 (14:49→16:40)
[2021-11-11] MEDS ORDERED: fentaNYL DRIP Premix 2,000 MCG/100 ML BAG IV SCH (15:00)
[2021-11-11 15:29] VITALS: BP 109/75
--- NOTE | 2021-11-11 16:04 | Death Note ---
Note Date of : 11/11/21 Time of : 15:25 Time Pronounced: 15:45 - Preliminary Cause of (problem) (1) Acute respiratory failure Preliminary cause of (2) Anoxic brain injury Preliminary cause of
--- NOTE | 2021-11-11 16:05 | Event Note ---
Date: 11/11/21 Patient seen and evaluated. Patient found to have absent brainstem reflexes. Patient pupils are fixed and dilated. On pulmonary exam the patient had absent breath sounds. On cardiac exam the patient was found to have absent heart sounds. Patient was found to have asystole on lift driver. Patient time of 1525 hrs.
--- NOTE | 2021-11-11 18:56 | Death Summary ---
<RHONDA RESENDIZ - Last Filed: 11/12/21 10:52> Summary - Providers Date of service: 11/11/21 Consults: 11/07/21 05:39 Consult to Physician [CONS] Routine Comment: Dr. Garcia spoke with Dr. Jean @ 0518 Consulting Provider: LARRY JEAN Physician Instructions: Reason For Exam: Femoral neck fracture 11/07/21 05:40 Consult to Dietitian/Nutrition [CONS] Routine Physician Instructions: Reason For Exam: Reason for Consult: Diet education 11/07/21 08:08 Physical Therapy Evaluation and Treat [CONS] Routine Comment: Reason For Exam: Femur fracture; evaluate s/p correction 11/09/21 16:37 Physical Therapy Evaluation and Treat [CONS] Urgent Comment: Reason For Exam: Gait training with partial weightbearing left LE Weight bearing status?: Partial wt bearing 11/09/21 16:39 Consult to Case Management [CONS] Routine Services Needed at Discharge: Other Notified:: CM Additional Physician Instructions: Patient will require prison facility placement 11/10/21 06:01 Consult to Physician [CONS] Routine Comment: Consulting Provider: CONOR CAPPS Physician Instructions: Reason For Exam: Cardiopulmonary Arrest. Resusciated and intubated. 11/10/21 08:41 Consult to Physician [CONS] Routine Comment: Consulting Provider: WILVER MOREL Physician Instructions: Reason For Exam: s/p arrest; seizures 11/10/21 16:58 Consult to Physician [CONS] Routine Comment: Consulting Provider: RALF MOREJON Physician Instructions: Reason For Exam: LIANG 11/10/21 17:33 Consult to Dietitian/Nutrition [CONS] Routine Physician Instructions: Reason For Exam: Reason for Consult: Write/Manage Tube Feeding 11/11/21 07:38 Consult to Physician [CONS] Urgent Comment: Consulting Provider: BRENDON DORADO II Physician Instructions: Reason For Exam: Cerebral Edema 11/11/21 07:45 Telemedicine [[place] [facility] Consult Order] [CONS] ONCE Comment: Consulting Provider: Reason For Exam: r/o Anoxic Brain Injury 11/11/21 07:47 Consult to Physician [CONS] Routine Comment: Consulting Provider: KAITLYN HENDERSON Physician Instructions: Reason For Exam: Fevers Attending: LUCAS CURRY MD - summary Date of admission: 11/07/21 05:40 Date of : 11/11/21 Reason for admission: Fall at home, left femoral neck fracture Disposition: This is a 66-year-old male with past medical history of alcohol abuse, HTN, CAD s/p CABG 12 years ago, Head and Neck CA s/p removal 2years ago, and recent paroxysmaln Afib was on Eliquis at home admitted for left femoral neck fracture due to fall at home. Patient was drinking and tripped and fall since then patient complained of left hip pain. In the emergency room patient is found to have alcohol intoxicated and work up revealed left femoral neck fracture subsequently Case discussed with orthopedic. Patient was taken to OR on 11/09 for a IM nail stabilization of the left femoral neck fracture. A CODE Blue called on 11/10, patient was found in PEA arrested, resuscitative measures were initiated per ACLS protocol, ROSC was achieved after 4 rounds of EPI and 1 round of Bcarb. Patient was intubated and transferred to the ICU for further management. Post code, patient was unresponsive, not on any sedations. Pupils irregular and nonreactive, with no cough/gag reflexes. Rhythmic twitching of patient right side of the face noted, 1mg IV Ativan given with no improvement. EEG and Neurology consult were ordered. Patient was also Hyperkalemic with worsen kidney function after the code. Hyperkalemia was treated with IV insulin, Bcarb,D50w, and calcium gluconate, and kayexalate per protocol, and Nephrology was also consulted if worsen. CTA chect was negative for PE and BLE doppler with no evidence of DVT. CT head revealed symmetric decreased attenuation involving the basal ganglia which may be seen with hypoxia and also suggested early developing cerebral edema. Teleneurology and Neuro Surgery were also consulted for further recommendations. MRI brain was also obtained, which findings correlated with the CT scan result. Findings and patient's overall poor prognosis were thoroughly discussed with patient's son and daughter. They opted for AND/DNR status and withdrawal of care. AND and withdrawal of care paperworks were signed and placed in the chart and comfort care and withdrawal of care orders were initiated. On 11/11 at 1440 MD and nursing staff terminally extubated and suctioned patient. Pateint's family remained at bedside and spent remaining time with the patient. Patient never regained consciousness. Family was given as much time as they needed to be with the patient. Patient was prounounced on 11/11/2021 at 1525. Patient seen and evaluated. Patient found to have absent brainstem reflexes. Patient pupils are fixed and dilated. On pulmonary exam the patient had absent breath sounds. On cardiac exam the patient was found to have absent heart sounds. Patient was found to have asystole on campus monitor. #Anoxic Brain Injury #s/p PEA Arrest with ROSC #Acute Hypoxemic Respiratory Failure #Acute Metabolic Encephalopathy #Myoclonic Jerks #Fevers #LLL Pneumonia #Possible Aspiration #Acute Kidney Injury(LIANG) most likely ATN #Hyperkalemia #Left Pneumothorax probably 2/2 #Multiple Left Ribs fractures #Closed Left Intertrochanteric Fracture #S/p IM nail stabilization <LUCAS CURRY - Last Filed: 11/13/21 07:19> Summary - Providers Consults: 11/07/21 05:39 Consult to Physician [CONS] Routine Comment: Dr. Garcia spoke with Dr. Jean @ 0518 Consulting Provider: LARRY JEAN Physician Instructions: Reason For Exam: Femoral neck fracture 11/07/21 05:40 Consult to Dietitian/Nutrition [CONS] Routine Physician Instructions: Reason For Exam: Reason for Consult: Diet education 11/07/21 08:08 Physical Therapy Evaluation and Treat [CONS] Routine Comment: Reason For Exam: Femur fracture; evaluate s/p correction 11/09/21 16:37 Physical Therapy Evaluation and Treat [CONS] Urgent Comment: Reason For Exam: Gait training with partial weightbearing left LE Weight bearing status?: Partial wt bearing 11/09/21 16:39 Consult to Case Management [CONS] Routine Services Needed at Discharge: Other Notified:: CM Additional Physician Instructions: Patient will require prison facility placement 11/10/21 06:01 Consult to Physician [CONS] Routine Comment: Consulting Provider: CONOR CAPPS Physician Instructions: Reason For Exam: Cardiopulmonary Arrest. Resusciated and intubated. 11/10/21 08:41 Consult to Physician [CONS] Routine Comment: Consulting Provider: WILVER MOREL Physician Instructions: Reason For Exam: s/p arrest; seizures 11/10/21 16:58 Consult to Physician [CONS] Routine Comment: Consulting Provider: RALF MOREJON Physician Instructions: Reason For Exam: LIANG 11/10/21 17:33 Consult to Dietitian/Nutrition [CONS] Routine Physician Instructions: Reason For Exam: Reason for Consult: Write/Manage Tube Feeding 11/11/21 07:38 Consult to Physician [CONS] Urgent Comment: Consulting Provider: BRENDON DORADO II Physician Instructions: Reason For Exam: Cerebral Edema 11/11/21 07:45 Telemedicine [[place] [facility] Consult Order] [CONS] ONCE Comment: Consulting Provider: Reason For Exam: r/o Anoxic Brain Injury 11/11/21 07:47 Consult to Physician [CONS] Routine Comment: Consulting Provider: KAITLYN HENDERSON Physician Instructions: Reason For Exam: Fevers Attending: LUCAS CURRY MD - summary Date of admission: 11/07/21 05:40 Disposition: I saw and evaluated the patient. I agree with the findings and the plan of care as documented in the Nurse Practitioner's~note, with the following corrections and additions.
[2021-11-11] MEDS ORDERED: HEPARIN 5,000 UNIT/1 ML VIAL SUB-Q SCH (22:00)
== END 2021-11-11 19:30 | DRG 480 ==
LOC: ED 04:25 → 3A 05:40 → CC1 11-10 05:46
PROVIDERS: ADMIT Hospitalist; ATTEND Internal Medicine
PROC: 0QS706Z Reposition Left Upper Femur with Intramedullary Internal Fixation Device, Open Approach (ICD-10-PCS; principal; 2021-11-09)
PROC: 5A1945Z Respiratory Ventilation, 24-96 Consecutive Hours (ICD-10-PCS; 2021-11-10)
PROC: 0BH17EZ Insertion of Endotracheal Airway into Trachea, Via Natural or Artificial Opening (ICD-10-PCS; 2021-11-10)
PROC: 4A033R1 Measurement of Arterial Saturation, Peripheral, Percutaneous Approach (ICD-10-PCS; 2021-11-10)
DX: S72.142A Displaced intertrochanteric fracture of left femur, initial encounter for closed fracture (principal); G93.41 Metabolic encephalopathy; J96.01 Acute respiratory failure with hypoxia; N17.0 Acute kidney failure with tubular necrosis; J69.0 Pneumonitis due to inhalation of food and vomit; S22.42XA Multiple fractures of ribs, left side, initial encounter for closed fracture; G93.1 Anoxic brain damage, not elsewhere classified; J93.9 Pneumothorax, unspecified; Z20.822 Contact with and (suspected) exposure to COVID-19; I46.9 Cardiac arrest, cause unspecified; I25.10 Atherosclerotic heart disease of native coronary artery without angina pectoris; E87.5 Hyperkalemia; G25.3 Myoclonus; E11.9 Type 2 diabetes mellitus without complications; I10 Essential (primary) hypertension; F10.20 Alcohol dependence, uncomplicated; W17.89XA Other fall from one level to another, initial encounter; Y93.89 Activity, other specified; Z95.1 Presence of aortocoronary bypass graft; Y92.89 Other specified places as the place of occurrence of the external cause; Y99.8 Other external cause status
CPT/HCPCS: 36415; 36600; 70450; 70551; 71045; 71275; 72170; 74018; 80048; 80053; 80307; 80320; 81001; 82140; 82310; 82803; 82962; 83735; 84100; 84132; 85007; 85025; 85027; 85610; 85730; 86850; 86900; 86901; 87040; 87070; 87205; 93005; 93306; 93970; 94002; 94003; 94644; 95819; G0378; J2354; J3490; J7070; J7120; J7121; Q0162; Q9967; C1713; C8929; G0480; J0171; J0610; J0690; J0692; J1170; J1815; J2060; J2250; J2270; J2405; J2704; J3370; J3411; J3475; J7030; J7050